=== PATIENT | female | born 1955 | race Caucasian/White ===

== ENCOUNTER 2022-08-31 08:00 | Inpatient (IN) ==
[2022-08-31] MEDS ORDERED: MoRPHine SULFATE 4 MG/ML 1 ML CARP\\VIAL IV STA ×2 (08:33→11:51)
[2022-08-31] MEDS ORDERED: LIDOCAINE 5% 1 PATCH TD STA (08:33)
[2022-08-31] MEDS ORDERED: KETOROLAC TROMETHAMINE 15 MG/ML VIAL IV STA (08:33)
[2022-08-31] MEDS ORDERED: ONDANSETRON 4 MG OD TAB PO STA (08:33)
--- NOTE | 2022-08-31 08:39 | Emergency Department Note ---
History of Present Illness General Chief complaint: Chest Pain Stated complaint: BACK PAIN, CHEST PAIN Time Seen by Provider: 08/31/22 08:09 History of Present Illness Maximum Pain Intensity: 9 Patient is a [id number] 67-year-old female with past medical history significant for hypertension, diabetes, dyslipidemia, depression, anxiety and urinary incontinence among other chronic medical problems who presents to the emergency department for evaluation of left scapular pain wrapping around into the left chest that started about 2 or 3 days ago. In the last year, the patient was diagnosed with a "pinched nerve" in her neck. She was having left scapular pain that radiated into the left arm. She reports no MRI was done, but she did physical therapy and got better. Patient reports a minor fall at home about a week ago. In the last 2 to 3 days, the pain in the left scapula has returned. She describes it as a sharp, hot lace inspector her left scapula that wraps around the axillary area into the left chest. Also radiates to the top of the shoulder and down the left arm into her left fourth and fifth fingers. The pain in her chest is a constant, aching pain, and she has some numbness and tingling into the left arm into her left fourth and fifth fingers. She has been trying to use [id number] medications including Tylenol, and had some baclofen that she tried that is not helping. She states at 0400 today the pain was quite intense, she was in tears. She currently rates her discomfort a 9/10. She denies any shortness of breath. She does report some increased discomfort with deep breathing however. No lightheadedness no dizziness, no nausea, no vomiti ng, no palpitations. She denies any abdominal pain or low back pain. She took her normal morning medications today. Home Medications Medication Instructions Recorded Confirmed Type aspirin 81 mg capsule 81 mg PO DAILY 08/31/22 08/31/22 History atorvastatin 40 mg tablet 40 mg PO DAILY 08/31/22 08/31/22 History duloxetine 60 mg capsule,delayed 60 mg PO DAILY 08/31/22 08/31/22 History release lisinopril 20 1 tab PO DAILY 08/31/22 08/31/22 History mg-hydrochlorothiazide 25 mg tablet meloxicam 15 mg tablet 15 mg PO DAILY 08/31/22 08/31/22 History metformin 1,000 mg tablet 1,000 mg PO DAILY 08/31/22 08/31/22 History oxybutynin chloride 15 mg 15 mg PO DAILY 08/31/22 08/31/22 History tablet,extended release 24 hr sertraline 100 mg tablet 200 mg PO DAILY 08/31/22 08/31/22 History trazodone 50 mg tablet 50 mg PO HS 08/31/22 08/31/22 History Allergies Allergy/AdvReac Type Severity Reaction Status Date / Time No Known Allergies Allergy Unverified 12/04/15 13:57 Past Med/Surg History Medical History Anxiety Depression Diabetes Dyslipidemia Hypertension Incontinence Surgical History History of left shoulder replacement History of total left knee replacement Social History Smoking Status: Former smoker Preferred Language: [place] Feels Safe at Home: Yes Review of Systems A total of 10 systems reviewed and were otherwise negative Physical Exam Vital Signs Vital Signs - 24 hr 08/31/22 08:01 08/31/22 09:11 08/31/22 09:40 Temperature 36.9 C Temperature Source Temporal Artery Scan Pulse Rate 77 70 Pulse Rate [Right Finger] 69 Pulse Rhythm [Right Finger] Respiratory Rate 14 20 Respiratory Effort / Characteristics Respiratory Depth Respiratory Pattern Blood Pressure 193/96 H Blood Pressure [Left Arm] 177/86 H Blood Pressure Mean 128 Blood Pressure Mean [Left Arm] 116 Blood Pressure Position [Left Arm] Pulse Oximetry 95 96 Oxygen Delivery Method Room Air Room Air Sepsis Recent Fever Within 48 Hours No Sepsis New/Unexplained Change in Mental Status No Sepsis Action Taken by Nursing No Action Required 08/31/22 12:41 08/31/22 13:23 08/31/22 13:58 Temperature Temperature Source Pulse Rate 60 Pulse Rate [Right Finger] 64 67 Pulse Rhythm [Right Finger] Regular Respiratory Rate 18 18 Respiratory Effort / Characteristics Non-Labored Spontaneous Non-Labored Spontaneous Respiratory Depth Normal Normal Respiratory Pattern Regular Regular Blood Pressure Blood Pressure [Left Arm] 159/85 H 199/98 H Blood Pressure Mean Blood Pressure Mean [Left Arm] 109 131 Blood Pressure Position [Left Arm] Lying Lying Pulse Oximetry 96 98 Oxygen Delivery Method Room Air Room Air Sepsis Recent Fever Within 48 Hours Sepsis New/Unexplained Change in Mental Status Sepsis Action Taken by Nursing CONSTITUTIONAL: Patient is a pleasant, overweight 67-year-old female who is awake and alert and sitting semiupright on the gurney in mild distress due to her stated discomfort. EYES: Pupils equal, round, reactive to light and accommodation. EOMs intact without nystagmus. Sclera are anicteric. ENT: Tympanic membranes intact, with normal landmarks. External canals are clear. Oral and nasopharynx are clear. Mucous membranes are moist, no lesions, tongue and gums appear normal. NECK: Supple without lymphadenopathy. No thyromegaly. No meningeal signs. No reproducible tenderness to palpation over the spinous processes of the cervical spine. Full active range of motion without discomfort. CARDIOVASCULAR: Regular rate and rhythm. Peripheral pulses easy to palpable. RESPIRATORY: Breath sounds equal and clear to auscultation without wheezes, rales, or rhonchi heard. Full and equal chest expansion without accessory muscle use or retractions. GI: Bowel sounds are present. Abdomen is soft, nontender, nondistended. No organomegaly. No pulsatile masses. No guarding or rebound. MUSCULOSKELETAL: Full range of motion of extremities x 4 with good strength. No cyanosis, edema, joint tenderness or swelling. No deformity. Upper extremity DTRs are equal and symmetrical bilaterally. She does have reproducible tenderness to palpation in the left mid back, between the thoracic spine and the scapula. INTEGUMENTARY: No lesions or rash, normal skin turgor. NEUROLOGICAL: Alert, oriented, and cooperative. Cranial nerves, sensation and strength grossly intact. Pupils round, equal, and react to light, EOMs are full. LYMPH: No lymphadenopathy. Course Course The patient was seen and assessed as above. External medical records are re viewed. She presents the emergency department for evaluation of left-sided mid back pain radiating into the left arm and the left chest. She had symptoms for a few days but they began to radiate into her chest since yesterday, and became more intense at 0400 this morning. Case reviewed with attending physician, Dr. Olivera. IV lock was initiated and laboratory studies were collected. She was medicated with Toradol 15 mg, morphine 4 mg IV with Zofran 4 mg ODT. A lidocaine patch was also applied to the left upper back. She was observed on the manager monitoring. Laboratory studies including CBC with differential, CMP, coags and troponin were collected. Chest x-ray, CT of the cervical spine and CTA of the chest were performed. Laboratory studies note a normal white count at 5900. No anemia. Coags are within normal limits. Electrolytes and renal functions are normal. A nonfasting glucose was mildly elevated at 171. Transaminases are not elevated. Initial troponin within normal limits at 12.2. EKG notes a normal sinus rhythm at 71 bpm. No acute ischemic changes. No interval prolongation. Chest x-ray is clear. Chest CT is unremarkable, no pulmonary emboli identified. There is mild ectasia of the extending thoracic aorta but no aneurysm or dissection. Benign left lower lobe nodule noted. Cervical spine CT notes multilevel degenerative changes with severe disc base n arrowing from C4-C7 with moderate to severe multilevel facet arthrosis. The patient was reassessed. All laboratory and diagnostic imaging studies were reviewed with her. She is feeling improved, rated her pain a 4/10 on reassessment. Discussed with her performing a second troponin, which is cu rrently pending. Repeat troponin elevated at 51. Given her symptoms and the elevated troponin, I did recommend admission/observation for further care and management in the hospital. Patient was in agreement. Case reviewed with ED family independence case manager, and [facility] and [facility]. Patient was reviewed with Xi Kennedy PA-C. She was admitted by the [facility] service. She remained stable in the emergency department pending th eir evaluation. Her primary nurse did come to me stating the patient was quite anxious regarding the diagnosis and was asking for something for anxiety. She was given Ativan 1 mg sublingually. Cardiac Monitoring: An order was placed for continuous cardiac monitoring. The monitor shows a NSR in the 60s per my interpretation. Administered Medications Discontinued Medications Ioversol (Optiray 320 500ml) 114 ml IV ONCE ONE Stop: 08/31/22 09:42 Last Admin: 08/31/22 09:43 Dose: 114 ml Documented By: JADA Ketorolac Tromethamine (Ketorolac Tromethamine 15 Mg/Ml Vial) 15 mg IV NOW STA Stop: 08/31/22 08:34 Last Admin: 08/31/22 08:49 Dose: 15 mg Documented By: JALEEL Lidocaine (Lidocaine 5% 1 Patch) 1 patch TD NOW STA Stop: 08/31/22 08:34 Last Admin: 08/31/22 08:49 Dose: 1 patch Documented By: JALEEL Lorazepam (Lorazepam 1 Mg Tab) 1 mg SL NOW STA Stop: 08/31/22 14:17 Last Admin: 08/31/22 14:19 Dose: 1 mg Documented By: LIZA Morphine Sulfate (Morphine Sulfate 4 Mg/Ml 1 Ml Carp\\Vial) 4 mg IV NOW STA Stop: 08/31/22 08:34 Last Admin: 08/31/22 08:49 Dose: 4 mg Documented By: JALEEL Morphine Sulfate (Morphine Sulfate 4 Mg/Ml 1 Ml Carp\\Vial) 4 mg IV NOW STA Stop: 08/31/22 11:52 Last Admin: 08/31/22 12:20 Dose: 4 mg Documented By: LIZA Ondansetron HCl (Ondansetron 4 Mg Od Tab) 4 mg PO NOW STA Stop: 08/31/22 08:34 Last Admin: 08/31/22 08:49 Dose: 4 mg Documented By: JALEEL Medical Decision Making Differential Diagnosis Differential diagnosis includes acute myocardial infarction, acute coronary syndrome, myocarditis, pericarditis, pulmonary embolism, pneumonia, pneumothorax, anemia, cervical radiculopathy, shoulder pathology, musculoskeletal, anxiety, costochondritis, among others.. Medical Records Attestation: I reviewed the patient's medical records. Home Medications Current Medication List: was personally reviewed by me Laboratory Data Attestation: I reviewed the patient's lab results. 08/31/22 08:45 08/31/22 08:45 Lab Results 08/31/22 08/31/22 08/31/22 Range/Units 08:45 08:45 08:45 WBC 5.93 (4.8-10.8) K/ul RBC 4.53 (4.20-5.40) M/uL Hgb 13.2 (12.0-16.0) g/dl Hct 40.0 (37.0-47.0) % MCV 88.3 (80.0-100.0) fL MCH 29.1 (25.0-34.0) pg MCHC 33.0 (32.0-36.0) g/dL RDW Std Deviation 41.1 (36.4-46.3) fL RDW Coeff of Neyda 12.7 (11.5-14.5) % Plt Count 203 (130-400) K/uL MPV 10.9 (9.4-12.4) fL Immature Gran % (Auto) 0.3 % Neut % (Auto) 78.1 % Lymph % (Auto) 13.5 % Cecil % (Auto) 5.4 % Eos % (Auto) 2.2 % Baso % (Auto) 0.5 % Neut # (Auto) 4.63 (1.40-6.50) K/uL Lymph # (Auto) 0.80 L (1.2-3.4) K/uL Cecil # (Auto) 0.32 (0.11-0.59) K/uL Eos # (Auto) 0.13 (0-0.50) K/uL Baso # (Auto) 0.03 (0-0.2) K/uL Immature Gran # (Auto) 0.02 (0.01-0.20) K/uL PT 10.5 (9.0-12.0) Seconds INR 1.0 (0.9-1.1) APTT 26.8 (21.0-31.0) Seconds PTT Ratio 1.0 Sodium 139 (136-145) mmol/L Potassium 4.0 (3.5-5.1) mmol/L Chloride 102 (98-107) mmol/L Carbon Dioxide 30 (21-32) mmol/L Anion Gap 7 (3-11) BUN 16 (6-23) mg/dl Creatinine 0.77 (0.6-1.2) mg/dl Est Cr Clr Drug Dosing 85.8 ml/min Est GFR ( Amer) 92.6 ml/min Est GFR (Non-Af Amer) 79.9 ml/min BUN/Creatinine Ratio 20.8 H (10-20) Glucose 171 H (70-99(Fasting)) mg/dl Calcium 9.9 (8.5-10.1) mg/dl Total Bilirubin 0.5 (0.2-1.0) mg/dl AST 19 (13-39) U/L ALT 15 (7-52) U/L Alkaline Phosphatase 49 (34-104) U/L Troponin I High Sens 12.2 (0-14) pg/ml Total Protein 7.0 (6.0-8.3) gm/dl Albumin 4.3 (3.4-5.0) gm/dl Globulin 2.7 (2.5-4.0) gm/dl Albumin/Globulin Ratio 1.6 (0.9-2) SARS-CoV-2, RNA, NAAT (NEGATIVE) 08/31/22 08/31/22 Range/Units 10:44 12:14 WBC (4.8-10.8) K/ul RBC (4.20-5.40) M/uL Hgb (12.0-16.0) g/dl Hct (37.0-47.0) % MCV (80.0-100.0) fL MCH (25.0-34.0) pg MCHC (32.0-36.0) g/dL RDW Std Deviation (36.4-46.3) fL RDW Coeff of Neyda (11.5-14.5) % Plt Count (130-400) K/uL MPV (9.4-12.4) fL Immature Gran % (Auto) % Neut % (Auto) % Lymph % (Auto) % Cecil % (Auto) % Eos % (Auto) % Baso % (Auto) % Neut # (Auto) (1.40-6.50) K/uL Lymph # (Auto) (1.2-3.4) K/uL Cecil # (Auto) (0.11-0.59) K/uL Eos # (Auto) (0-0.50) K/uL Baso # (Auto) (0-0.2) K/uL Immature Gran # (Auto) (0.01-0.20) K/uL PT (9.0-12.0) Seconds INR (0.9-1.1) APTT (21.0-31.0) Seconds PTT Ratio Sodium (136-145) mmol/L Potassium (3.5-5.1) mmol/L Chloride (98-107) mmol/L Carbon Dioxide (21-32) mmol/L Anion Gap (3-11) BUN (6-23) mg/dl Creatinine (0.6-1.2) mg/dl Est Cr Clr Drug Dosing ml/min Est GFR ( Amer) ml/min Est GFR (Non-Af Amer) ml/min BUN/Creatinine Ratio (10-20) Glucose (70-99(Fasting)) mg/dl Calcium (8.5-10.1) mg/dl Total Bilirubin (0.2-1.0) mg/dl AST (13-39) U/L ALT (7-52) U/L Alkaline Phosphatase (34-104) U/L Troponin I High Sens 51.5 H* D (0-14) pg/ml Total Protein (6.0-8.3) gm/dl Albumin (3.4-5.0) gm/dl Globulin (2.5-4.0) gm/dl Albumin/Globulin Ratio (0.9-2) SARS-CoV-2, RNA, NAAT NEGATIVE (NEGATIVE) Imaging Data Attestation: I personally reviewed and interpreted this imaging study as follows: Radiologist's Impression: Chest X-Ray 08/31/22 08:30 XR chest 1V portable HISTORY: 67 years-old Female LEFT CHEST PAIN left-sided chest pain COMPARISON: 09/06/2015 TECHNIQUE: AP view of the chest FINDINGS: Cardiomediastinal and hilar silhouettes are within normal limits. Atherosclerosis of the aorta. No pneumothorax, large pleural effusion, airspace consolidation or overt pulmonary edema. Degenerative changes of the right shoulder and spine. Left shoulder arthroplasty. IMPRESSION: No acute process. ACT 112: Negative or not required by law. The above report was generated using voice recognition software. It may contain grammatical, syntax or spelling errors. Electronically signed by: En Joya M.D. 08/31/2022 9:[address] 08/31/22 08:31 CT cervical spine wo con CT DOSE: 1411.58 mGy.cm CLINICAL HISTORY: 67 years-old Female with LEFT CERVICAL RADICULOPATHY. Acute neck pain COMPARISON: CTA chest of same day TECHNIQUE: Multiple axial CT images of the cervical spine were obtained without contrast. A dose lowering technique was utilized adhering to the principles of ALARA. FINDINGS: Demineralized appearance of the bones. Multilevel degenerative changes include severe disc space narrowing at C4-C5, C5-C6 and C6-C7 with moderate to severe multilevel facet arthrosis. Multilevel central canal or neural foraminal narrowing, suboptimally evaluated by CT technique. Study is mildly motion degrad ed. The cervical soft tissues appear unremarkable. The visualized lung apices appear clear. IMPRESSION: No acute cervical spine fracture or subluxation. ACT 112: Negative or not required by law. The above report was generated using voice recognition software. It may contain grammatical, syntax or spelling errors. Electronically signed by: En Joya M.D. 08/31/2022 10:26 AM Chest CTA 08/31/22 08:31 CT angio chest PE protocol HISTORY: 67 years-old Female with L THORACIC BACK PAIN RADIATING INTO LEFT CHEST. Acute left-sided chest pain with shortness of breath TECHNIQUE: Multiple CTA images of the chest were obtained after the intravenous administration of 114 ml Optiray. Coronal and sagittal MIPS were obtained from the axial data set and were submitted for review. All measurements were obtained according to NASCET criteria. A dose lowering technique was utilized adhering to the principles of ALARA. COMPARISON: CT cervical spine of same day, chest CT 04/14/2006 FINDINGS: CTA: Mild cardiomegaly. No pericardial effusion. Mild coronary artery calcifications. Mild ectasia of the ascending thoracic aorta, 3.9 cm. No aneurysm or dissection. Unremarkable pulmonary artery. Suboptimal evaluation of the segmental and subsegmental branches secondary to contrast bolus timing. CT CHEST: No thyroid nodule or lymphadenopathy. There is no pneumothorax, pleural effusion, airspace consolidation or overt pulmonary edema. Mild bronchial wall thickening. No suspicious pulmonary nodules or masses identified. 4 mm solid nodule the basal left lower lobe, image 119 previously measured 2 mm. 3 mm nodule within the left lower lobe on image 85 likely focal mucous plugging. Central airways are patent. Tiny hiatal hernia. 2.7 cm right adrenal gland adenoma. Hepatic steatosis. Left hepatic lobe hemangioma redemonstrated. Mild distention of the gallbladder. 3 mm nonobstructing calculus of the superior pole left kidney. Unremarkable soft tissues. Left shoulder arthroplasty. Degenerative changes of the right shoulder and spine. IMPRESSION: 1. Unremarkable CTA of the chest. No pulmonary emboli identified. 2. Likely benign 4 mm solid nodule within the left lower lobe. 3. Left nephrolithiasis. 4. Hepatic steatosis. Please refer to below summary of Fleischner criteria recommendations for follow- up of incidental CT nodules (Latanya Samson, Guidelines for management of small pulmonary nodules detected on CT scans: A statement from the Fleischner Society, Radiology 237: [phone].) SOLID NODULES Solitary nodule size: <6 mm * Low risk patients: no follow-up needed * high risk patients: optional CT at 12 months Multiple nodules size: <6 mm * Low risk patients: no routine follow-up * high risk patients: optional CT at 12 months Note: newly detected indeterminate nodule in persons 35 years of age or older. * Low risk patients: minimal or absent history of smoking and/or other known risk factors * high risk patients: history of smoking or of other known risk factors (e.g. first degree relative with lung cancer, or exposure to asbestos, radon, uranium) * if a nodule up to 8 mm is partly solid or is ground glass further follow-up is required after 24 months to exclude possible slow growing adenocarcinoma ([place]) ACT 112: Negative or not required by law. The above report was generated using voice recognition software. It may contain grammatical, syntax or spelling errors. Electronically signed by: En Joya M.D. 08/31/2022 10:34 AM ECG Data Attestation: I personally reviewed and interpreted this ECG as follows: Indication: + back/shoulder pain and + chest pain Rate (beats per minute): 71 Rhythm: + normal sinus ECG Intervals/blocks: + Right Bundle branch block (incomplete) ECG [place]: + Normal ECG ST segments: no ST depression, no ST elevation or no T-wave inversions Comparison ECG Date: from (08/2015) Change: no significant change MDM Narrative See ED Course. Impression & Plan Left-sided thoracic back pain, Left-sided chest pain, Elevated troponin, Degenerative disc disease, cervical Discharge Plan Visit Data Chief Complaint: Chest Pain Stated Complaint: BACK PAIN, CHEST PAIN ED Provider: Sabas Olivera ED Midlevel Provider: Delonte Ruiz Discharge Problem: Left-sided thoracic back pain, Left-sided chest pain, Elevated troponin, Degenerative disc disease, cervical Patient Disposition: Being Evaluated by Hospitalist Forms Stand Alone Forms: My [employer] Prescriptions Prescriptions: No Action atorvastatin 40 mg tablet 40 mg PO DAILY trazodone 50 mg tablet 50 mg PO HS meloxicam 15 mg tablet 15 mg PO DAILY sertraline 100 mg tablet 200 mg PO DAILY metformin 1,000 mg tablet 1,000 mg PO DAILY lisinopril-hydrochlorothiazide 20-25 mg tablet 1 tab PO DAILY duloxetine 60 mg capsule,delayed release(DR/EC) 60 mg PO DAILY aspirin 81 mg Capsule 81 mg PO DAILY oxybutynin chloride 15 mg Tablet Extended Release 24hr 15 mg PO DAILY Referrals Referrals: Brandt Jackson MD [Outside Practitioners] -
--- NOTE | 2022-08-31 09:14 | XRay Report ---
XR chest 1V portable HISTORY: 67 years-old Female LEFT CHEST PAIN left-sided chest pain COMPARISON: 09/06/2015 TECHNIQUE: AP view of the chest FINDINGS: Cardiomediastinal and hilar silhouettes are within normal limits. Atherosclerosis of the aorta. No pn eumothorax, large pleural effusion, airspace consolidation or overt pulmonary edema. Degenerative chavez nges of the right shoulder and spine. Left shoulder arthroplasty. IMPRESSION: No acute process. ACT 112: Negative or not required by law. The above report was generated using voice recognition software. It may contain grammatical, syntax o r spelling errors. Electronically signed by: En Joya M.D. 08/31/2022 9:12 AM
[2022-08-31 09:21] LABS: Partial Thromboplastin Time 26.8 Seconds (21.0-31.0); Prothrombin Time 10.5 Seconds (9.0-12.0)
[2022-08-31 09:23] LABS: Albumin Globulin Ratio 1.6 (0.9-2); Albumin Level 4.3 gm/dl (3.4-5.0); BUN Creatinine Ratio 20.8 (10-20); Bilirubin,Total 0.5 mg/dl (0.2-1.0); Calcium 9.9 mg/dl (8.5-10.1); Creatinine Clr Calc Pharmacy 85.8 ml/min; Est GFR (African American) 92.6 ml/min; Est GFR (Non-African American) 79.9 ml/min; Globulin 2.7 gm/dl (2.5-4.0)
[2022-08-31 09:27] LABS: Basophils # (auto) 0.03 K/uL (0-0.2); Basophils % (auto) 0.5 %; Eosinophils # (auto) 0.13 K/uL (0-0.50); Eosinophils % (auto) 2.2 %; Hemoglobin 13.2 g/dl (12.0-16.0); Immature Granulocytes # (auto) 0.02 K/uL (0.01-0.20); Immature Granulocytes % (auto) 0.3 %; Lymphocytes % (auto) 13.5 %; Mean Corpuscular Hemoglobin 29.1 pg (25.0-34.0); Mean Corpuscular Volume 88.3 fL (80.0-100.0); Mean Platelet Volume 10.9 fL (9.4-12.4); Monocytes # (auto) 0.32 K/uL (0.11-0.59); Monocytes % (auto) 5.4 %; Neutrophils # (auto) 4.63 K/uL (1.40-6.50); Neutrophils % (auto) 78.1 %; Platelet Count 203 K/uL (130-400); RDW Coefficient of Variation 12.7 % (11.5-14.5); RDW Standard Deviation 41.1 fL (36.4-46.3); Red Blood Count 4.53 M/uL (4.20-5.40); White Blood Count 5.93 K/ul (4.8-10.8)
[2022-08-31 09:29] LABS: Troponin I High Sensitivity 12.2 pg/ml (0-14)
[2022-08-31] MEDS ORDERED: OPTIRAY 320 500ml IV ONE (09:41)
--- NOTE | 2022-08-31 10:28 | CT Scan Report ---
CT cervical spine wo con CT DOSE: 1411.58 mGy.cm CLINICAL HISTORY: 67 years-old Female with LEFT CERVICAL RADICULOPATHY. Acute neck pain COMPARISON: CTA chest of same day TECHNIQUE: Multiple axial CT images of the cervical spine were obtained without contrast. A dose low ering technique was utilized adhering to the principles of ALARA. FINDINGS: Demineralized appearance of the bones. Multilevel degenerative changes include severe disc space narrowing at C4-C5, C5-C6 and C6-C7 with moderate to severe multilevel facet arthrosis. Multile dick central canal or neural foraminal narrowing, suboptimally evaluated by CT technique. Study is mil dly motion degraded. The cervical soft tissues appear unremarkable. The visualized lung apices appear clear. IMPRESSION: No acute cervical spine fracture or subluxation. ACT 112: Negative or not required by law. The above report was generated using voice recognition software. It may contain grammatical, syntax o r spelling errors. Electronically signed by: En Joya M.D. 08/31/2022 10:26 AM
--- NOTE | 2022-08-31 10:36 | CT Scan Report ---
CT angio chest PE protocol HISTORY: 67 years-old Female with L THORACIC BACK PAIN RADIATING INTO LEFT CHEST. Acute left-sided chest pain with shortness of breath TECHNIQUE: Multiple CTA images of the chest were obtained after the intravenous administration of 114 ml Optiray. Coronal and sagittal MIPS were obtained from the axial data set and were submitted for review. All measurements were obtained according to NASCET criteria. A dose lowering technique was u tilized adhering to the principles of ALARA. COMPARISON: CT cervical spine of same day, chest CT 04/14/2006 FINDINGS: CTA: Mild cardiomegaly. No pericardial effusion. Mild coronary artery calcifications. Mild ectasia of the ascending thoracic aorta, 3.9 cm. No aneurysm or dissection. Unremarkable pulmonary artery. Suboptima l evaluation of the segmental and subsegmental branches secondary to contrast bolus timing. CT CHEST: No thyroid nodule or lymphadenopathy. There is no pneumothorax, pleural effusion, airspace consolidat ion or overt pulmonary edema. Mild bronchial wall thickening. No suspicious pulmonary nodules or mass es identified. 4 mm solid nodule the basal left lower lobe, image 119 previously measured 2 mm. 3 mm nodule within the left lower lobe on image 85 likely focal mucous plugging. Central airways are paten t. Tiny hiatal hernia. 2.7 cm right adrenal gland adenoma. Hepatic steatosis. Left hepatic lobe hemangio ma redemonstrated. Mild distention of the gallbladder. 3 mm nonobstructing calculus of the superior p ole left kidney. Unremarkable soft tissues. Left shoulder arthroplasty. Degenerative changes of the r ight shoulder and spine. IMPRESSION: 1. Unremarkable CTA of the chest. No pulmonary emboli identified. 2. Likely benign 4 mm solid nodule within the left lower lobe. 3. Left nephrolithiasis. 4. Hepatic steatosis. Please refer to below summary of Fleischner criteria recommendations for follow-up of incidental CT n odules (Latanya Samson, Guidelines for management of small pulmonary nodules detected on CT scans: A sta tement from the Fleischner Society, Radiology 237: [id number].) SOLID NODULES Solitary nodule size: <6 mm * Low risk patients: no follow-up needed * high risk patients: optional CT at 12 months Multiple nodules size: <6 mm * Low risk patients: no routine follow-up * high risk patients: optional CT at 12 months Note: newly detected indeterminate nodule in persons 35 years of age or older. * Low risk patients: minimal or absent history of smoking and/or other known risk factors * high risk patients: history of smoking or of other known risk factors (e.g. first degree relative with lung cancer, or exposure to asbestos, radon, uranium) * if a nodule up to 8 mm is partly solid or is ground glass further follow-up is required after 24 m onths to exclude possible slow growing adenocarcinoma (TEAGAN) ACT 112: Negative or not required by law. The above report was generated using voice recognition software. It may contain grammatical, syntax o r spelling errors. Electronically signed by: En Joya M.D. 08/31/2022 10:34 AM
[2022-08-31] MEDS ORDERED: LORazepam 1 MG TAB SL STA (14:16)
[2022-08-31] MEDS ORDERED: GLUCOSE 10 TAB/TUBE PO PRN (15:15)
[2022-08-31] MEDS ORDERED: GLUCOSE 40% GEL 15 GM TUBE PO PRN (15:15)
[2022-08-31] MEDS ORDERED: DEXTROSE 50% 50 ML SYRINGE IV PRN (15:15)
[2022-08-31] MEDS ORDERED: CARBOHYDRATES FOR HYPOGLYCEMIA PO PRN (15:15)
[2022-08-31] MEDS ORDERED: GLUCAGON FOR INJ 1 MG VIAL SQ PRN (15:15)
--- NOTE | 2022-08-31 15:33 | History & Physical Report ---
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 -due to age, and chronic medical conditions will trend trop --admit to tele, get echo and cardiology consult -will continue pts home aspirin and Statin -will obtain AM EKG -CTA chest: No PE L neck pain and Shoulder blade pain: -likely 2/2 DDD and MSK - will get PT/OT - Lidoderm daily -will do prn pain meds - CT C spine: no acute findings but presence of DDD with moderate to severe multilevel facet arthrosis ----- might consider Gabapentin on discharge if there is lack of improvement -will hold pts home meloxicam for now Incidental Pulm nodule on CTA chest: -4mm -pt is a non smoker and no prior hx of chest radiation thus low risk and no need for follow up DMII: -will hold metformin -ISS HTn: -continue Lisinopril-HCTZ PENELOPE/Insomnia/Overactive bladder: -Continue home meds Diet: Heart healty and DMII DVT PPx:Lovenox Code Status:FULL CODE Emergency Contact: - Robert Hernandez [phone] Admission and Anticipated Discharge Date Admission Date: August 31, 2022 History of Present Illness Chief Complaint: chest pain Primary Care Provider: Armida Fernandes DO Pt is a 67 y/o F with hx of DMII, HTN, HLD, Insomnia, anxiety, Depression, overactive bladder, DDD and DJD came into the ER with 1 week hx of L neck and shoulder blade pain which progressed into L axillary and L anterior chest pain today morning. Per pt and pt was sewing 1 week ago and the pain started after that. Does have hx of L shoulder replacement and DDD. Denied any hx of MS or CVA. At bedside: continued to complain of L neck, shoulder blade, and L anterior chest pain. Denied any SOB, palpitation, leg swelling or orthopnea. Allergies Allergy/AdvReac Type Severity Reaction Status Date / Time No Known Allergies Allergy Unverified 12/04/15 13:57 Home Medications Medication Instructions Recorded Confirmed Type aspirin 81 mg capsule 81 mg PO DAILY 08/31/22 08/31/22 History atorvastatin 40 mg tablet 40 mg PO DAILY 08/31/22 08/31/22 History duloxetine 60 mg capsule,delayed 60 mg PO DAILY 08/31/22 08/31/22 History release lisinopril 20 1 tab PO DAILY 08/31/22 08/31/22 History mg-hydrochlorothiazide 25 mg tablet meloxicam 15 mg tablet 15 mg PO DAILY 08/31/22 08/31/22 History metformin 1,000 mg tablet 1,000 mg PO BID 08/31/22 08/31/22 History oxybutynin chloride 15 mg 15 mg PO DAILY 08/31/22 08/31/22 History tablet,extended release 24 hr sertraline 100 mg tablet 200 mg PO DAILY 08/31/22 08/31/22 History trazodone 50 mg tablet 50 mg PO HS 08/31/22 08/31/22 History Past Med/Surg History Medical History Anxiety Depression Diabetes Dyslipidemia Hypertension Incontinence Surgical History History of left shoulder replacement History of total left knee replacement Family History Other Diabetes Heart disease Social History Smoking Status: Former smoker Preferred Language: Chinese Feels Safe at Home: Yes Review of Systems Review of Systems: At least 10 Review of systems were reviewed and all negative except as indicated in HPI Physical Exam Physical Exam: General:. NAD, well developed, well nourished, average body habitus HEENT:. Normocephalic and atraumatic, Normal Conjunctiva, EOMI, Sclera is non- icteric Lungs:. No signs of respiratory distress, CTA, no wheezing or crackles Heart:. Normal S1, S2, no murmur Abdominal:. ND, Soft, NT MSK:.TTP of the cervical paravertebral muscle and scapula area, normal ROM of the neck and shoulders with intact strength of the UE, trace b/l LE pitting edema Psych:. AAOx3, normal affect Results & Data Results & Data ([facility]) Vital Signs (Past 12 Hours) Vital Signs Temp Pulse Pulse Resp BP BP Pulse Ox 08/31/22 14:45 65 18 175/101 H 96 08/31/22 13:58 67 18 199/98 H 98 08/31/22 13:23 60 08/31/22 12:41 64 18 159/85 H 96 08/31/22 09:40 69 20 177/86 H 96 08/31/22 09:11 70 08/31/22 08:01 36.9 C 77 14 193/96 H 95 O2 Del Method 08/31/22 14:45 Room Air 08/31/22 13:58 Room Air 08/31/22 13:23 08/31/22 12:41 Room Air 08/31/22 09:40 Room Air 08/31/22 09:11 08/31/22 08:01 Room Air Laboratory Results Short CBC 08/31/22 Range/Units 08:45 WBC 5.93 (4.8-10.8) K/ul Hgb 13.2 (12.0-16.0) g/dl Hct 40.0 (37.0-47.0) % Plt Count 203 (130-400) K/uL BMP 08/31/22 08:45 Sodium 139 Potassium 4.0 Chloride 102 Carbon Dioxide 30 BUN 16 Creatinine 0.77 Glucose 171 H Calcium 9.9 Liver Function 08/31/22 Range/Units 08:45 Total Bilirubin 0.5 (0.2-1.0) mg/dl AST 19 (13-39) U/L ALT 15 (7-52) U/L Alkaline Phosphatase 49 (34-104) U/L Albumin 4.3 (3.4-5.0) gm/dl Diagnostic Findings Chest X-Ray 08/31/22 08:30 XR chest 1V portable HISTORY: 67 years-old Female LEFT CHEST PAIN left-sided chest pain COMPARISON: 09/06/2015 TECHNIQUE: AP view of the chest FINDINGS: Cardiomediastinal and hilar silhouettes are within normal limits. Atherosclerosis of the aorta. No pneumothorax, large pleural effusion, airspace consolidation or overt pulmonary edema. Degenerative changes of the right shoulder and spine. Left shoulder arthroplasty. IMPRESSION: No acute process. ACT 112: Negative or not required by law. The above report was generated using voice recognition software. It may contain grammatical, syntax or spelling errors. Electronically signed by: En Joya M.D. 08/31/2022 9:[address] 08/31/22 08:31 CT cervical spine wo con CT DOSE: 1411.58 mGy.cm CLINICAL HISTORY: 67 years-old Female with LEFT CERVICAL RADICULOPATHY. Acute neck pain COMPARISON: CTA chest of same day TECHNIQUE: Multiple axial CT images of the cervical spine were obtained without contrast. A dose lowering technique was utilized adhering to the principles of ALARA. FINDINGS: Demineralized appearance of the bones. Multilevel degenerative changes include severe disc space narrowing at C4-C5, C5-C6 and C6-C7 with moderate to severe multilevel facet arthrosis. Multilevel central canal or neural foraminal narrowing, suboptimally evaluated by CT technique. Study is mildly motion degraded. The cervical soft tissues appear unremarkable. The visualized lung apices appear clear. IMPRESSION: No acute cervical spine fracture or subluxation. ACT 112: Negative or not required by law. The above report was generated using voice recognition software. It may contain grammatical, syntax or spelling errors. Electronically signed by: En Joya M.D. 08/31/2022 10:26 AM Chest CTA 08/31/22 08:31 CT angio chest PE protocol HISTORY: 67 years-old Female with L THORACIC BACK PAIN RADIATING INTO LEFT CHEST. Acute left-sided chest pain with shortness of breath TECHNIQUE: Multiple CTA images of the chest were obtained after the intravenous administration of 114 ml Optiray. Coronal and sagittal MIPS were obtained from the axial data set and were submitted for review. All measurements were obtained according to NASCET criteria. A dose lowering technique was utilized adhering to the principles of ALARA. COMPARISON: CT cervical spine of same day, chest CT 04/14/2006 FINDINGS: CTA: Mild cardiomegaly. No pericardial effusion. Mild coronary artery calcifications. Mild ectasia of the ascending thoracic aorta, 3.9 cm. No aneurysm or dissection. Unremarkable pulmonary artery. Suboptimal evaluation of the segmental and subsegmental branches secondary to contrast bolus timing. CT CHEST: No thyroid nodule or lymphadenopathy. There is no pneumothorax, pleural effusion, airspace consolidation or overt pulmonary edema. Mild bronchial wall thickening. No suspicious pulmonary nodules or masses identified. 4 mm solid nodule the basal left lower lobe, image 119 previously measured 2 mm. 3 mm nodule within the left lower lobe on image 85 likely focal mucous plugging. Central airways are patent. Tiny hiatal hernia. 2.7 cm right adrenal gland adenoma. Hepatic steatosis. Left hepatic lobe hemangioma redemonstrated. Mild distention of the gallbladder. 3 mm nonobstructing calculus of the superior pole left kidney. Unremarkable soft tissues. Left shoulder arthroplasty. Degenerative changes of the right shoulder and spine. IMPRESSION: 1. Unremarkable CTA of the chest. No pulmonary emboli identified. 2. Likely benign 4 mm solid nodule within the left lower lobe. 3. Left nephrolithiasis. 4. Hepatic steatosis. Please refer to below summary of Fleischner criteria recommendations for follow- up of incidental CT nodules (Latanya Samson, Guidelines for management of small pulmonary nodules detected on CT scans: A statement from the Fleischner Society, Radiology 237: [phone].) SOLID NODULES Solitary nodule size: <6 mm * Low risk patients: no follow-up needed * high risk patients: optional CT at 12 months Multiple nodules size: <6 mm * Low risk patients: no routine follow-up * high risk patients: optional CT at 12 months Note: newly detected indeterminate nodule in persons 35 years of age or older. * Low risk patients: minimal or absent history of smoking and/or other known risk factors * high risk patients: history of smoking or of other known risk factors (e.g. first degree relative with lung cancer, or exposure to asbestos, radon, uranium) * if a nodule up to 8 mm is partly solid or is ground glass further follow-up is required after 24 months to exclude possible slow growing adenocarcinoma (TEAGAN) ACT 112: Negative or not required by law. The above report was generated using voice recognition software. It may contain grammatical, syntax or spelling errors. Electronically signed by: En Joya M.D. 08/31/2022 10:34 AM Code Status & VTE Plan VTE Prophylaxis Plan VTE Prophylaxis will be ordered: Yes
[2022-08-31] MEDS: oxyCODONE HCL IR 5 MG TAB (IMMEDIATE RELEASE) PO PRN ×2 (16:54→23:08)
[2022-08-31] MEDS: INSULIN ASPART PER UNIT SC SCH ×2 (16:55→20:44)
[2022-08-31] MEDS: ENOXAPARIN INJ 40 MG/0.4 ML SYR SQ SCH (18:08)
[2022-08-31] MEDS: ACETAMINOPHEN 325 MG TAB PO PRN (20:40)
[2022-08-31] MEDS: traZODone HCL 50 MG TAB PO SCH (20:40)
[2022-09-01] MEDS: ACETAMINOPHEN 325 MG TAB PO PRN ×4 (02:23→23:29)
[2022-09-01] MEDS: ENOXAPARIN INJ 40 MG/0.4 ML SYR SQ SCH ×2 (05:13→15:42)
[2022-09-01] MEDS: oxyCODONE HCL IR 5 MG TAB (IMMEDIATE RELEASE) PO PRN ×4 (05:17→20:13)
[2022-09-01] MEDS: INSULIN ASPART PER UNIT SC SCH ×4 (08:09→21:12)
[2022-09-01 08:16] LABS: Basophils # (auto) 0.03 K/uL (0-0.2); Basophils % (auto) 0.7 %; Eosinophils # (auto) 0.12 K/uL (0-0.50); Eosinophils % (auto) 2.8 %; Hematocrit (blood only) 39.5 % (37.0-47.0); Hemoglobin 13.2 g/dl (12.0-16.0); Immature Granulocytes # (auto) 0.01 K/uL (0.01-0.20); Immature Granulocytes % (auto) 0.2 %; Lymphocytes # (auto) 0.76 K/uL (1.2-3.4); Lymphocytes % (auto) 17.8 %; Mean Corpuscular Hgb Conc 33.4 g/dL (32.0-36.0); Mean Corpuscular Volume 86.8 fL (80.0-100.0); Mean Platelet Volume 10.5 fL (9.4-12.4); Monocytes # (auto) 0.31 K/uL (0.11-0.59); Monocytes % (auto) 7.2 %; Neutrophils # (auto) 3.05 K/uL (1.40-6.50); Neutrophils % (auto) 71.3 %; Platelet Count 188 K/uL (130-400); RDW Coefficient of Variation 12.8 % (11.5-14.5); RDW Standard Deviation 40.3 fL (36.4-46.3); Red Blood Count 4.55 M/uL (4.20-5.40); White Blood Count 4.28 K/ul (4.8-10.8)
[2022-09-01 08:23] LABS: Albumin Globulin Ratio 1.5 (0.9-2); Albumin Level 4.1 gm/dl (3.4-5.0); BUN Creatinine Ratio 22.4 (10-20); Bilirubin,Total 0.4 mg/dl (0.2-1.0); Calcium 9.5 mg/dl (8.5-10.1); Chol HDL Ratio 3.8 (0-5); Creatinine Clr Calc Pharmacy 107.2 ml/min; Est GFR (African American) 105.4 ml/min; Globulin 2.7 gm/dl (2.5-4.0); Potassium 4.1 mmol/L (3.5-5.1); Total Protein 6.8 gm/dl (6.0-8.3)
[2022-09-01] MEDS: LIDOCAINE 5% 1 PATCH TD SCH (08:34)
[2022-09-01] MEDS: ATORVASTATIN 40 MG TAB PO SCH (08:39)
[2022-09-01] MEDS: ASPIRIN 81 MG ECTAB PO SCH (08:39)
[2022-09-01] MEDS: SERTRALINE HCL 100 MG TABLET PO SCH (08:39)
[2022-09-01] MEDS: DULoxetine HCL 60 MG CAP PO SCH (08:39)
[2022-09-01] MEDS: LISINOPRIL/HCTZ 20/25MG 1 TAB PO SCH (08:39)
[2022-09-01] MEDS: OXYBUTYNIN CHLORIDE XL 5 MG TABCR PO SCH (08:40)
[2022-09-01] MEDS ORDERED: MELOXICAM 7.5 MG TAB PO SCH (09:00)
--- NOTE | 2022-09-01 11:03 | Electrocardiogram Report ---
Test Reason : Blood Pressure : / mmHG Vent. Rate : 071 BPM Atrial Rate : 071 BPM P-R Int : 162 ms QRS Dur : 094 ms QT Int : 410 ms P-R-T Axes : 037 -47 051 degrees QTc Int : 445 ms Poor data quality, interpretation may be adversely affected Normal sinus rhythm RSR' or QR pattern in V1 suggests right ventricular conduction delay Left anterior fascicular block Abnormal ECG When compared with ECG of 06-SEP-2015 11:29, RSR' or QR pattern in V1 suggests right ventricular conduction delay is now Present Confirmed by Gino Morales ([id number]) on 09/01/2022 11:03:22 AM Referred By: REFERRED SELF Confirmed By:Gino Morales
--- NOTE | 2022-09-01 12:50 | Hospitalist Progress Note ---
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 Normal LV systolic function, EF 60 to 65%. No segmental LV wall motion abnormalities are noted. Grade 1 diastolic dysfunction. Poorly visualized valvular structures without significant stenosis or regurg by Doppler. Cardiology consult pending L neck pain and Shoulder blade pain: - CT C spine: no acute findings but presence of DDD with moderate to severe multilevel facet arthrosis -likely 2/2 DDD and MSK - PT/OT - Lidoderm daily , oxycodone prn, hold pts home meloxicam for now - will add Gabapentin as pt still complaing of pain and also radiation to fingers Incidental Pulm nodule on CTA chest: -4mm -pt is a non smoker and no prior hx of chest radiation thus low risk and no need for follow up -will make pcp aware DMII: -will hold metformin -ISS HTN: -continue Lisinopril-HCTZ PENELOPE/Insomnia/Overactive bladder: -Continue home meds DVT PPx:Lovenox Code Status:FULL CODE Emergency Contact: - Robert [phone] Admission and Anticipated Discharge Date Admission Date: August 31, 2022 Subjective Pt seen in follow up of chest pain, elev. trop Currently laying in bed, in no acute distress However reports continuous subscapular pain that radiates to left chest anteriorly She has bruise at the sternum, from her fall Reports " pinched nerve" at left neck Denies any diaphoresis, shortness of breath nausea or vomiting, reports some tingling going down to her fingers Troponin increased since admission EKG in the morning ordered Echo obtained, however not available yet Patient otherwise denies any fevers chills abdominal pain Review of Systems Review of Systems: All systems reviewed & are unremarkable except as noted in Subjective Physical Exam Physical Exam: General: Obese F laying in bed in NAD HEENT: NC/AT, Normal Conjunctiva, EOMI, Sclera is non-icteric Lungs:No signs of respiratory distress, CTA, no wheezing or crackles Heart: Normal S1, S2, no murmur Chest: bruise at the left side of sternum (from fall) Abdominal: Soft, NT, ND, obese MSK: TTP of the cervical paravertebral muscle and scapula area, normal ROM of the neck and shoulders with intact strength of the UE, trace b/l LE pitting edema Psych:.AAOx3, normal affect Results & Data Results & Data ([facility]) Vital Signs (Past 12 Hours) Vital Signs Temp Pulse Pulse Resp BP Pulse Ox O2 Del Method 09/01/22 11:39 37 C 67 20 143/72 H 98 Room Air 09/01/22 07:00 Room Air 09/01/22 07:42 36.8 C 66 20 179/82 H 98 Room Air 09/01/22 06:00 66 09/01/22 04:00 37.0 C 70 18 168/93 H 94 Room Air 09/01/22 01:37 70 Laboratory Results 09/01/22 09/01/22 09/01/22 Range/Units 11:33 09:44 07:52 WBC (4.8-10.8) K/ul RBC (4.20-5.40) M/uL Hgb (12.0-16.0) g/dl Hct (37.0-47.0) % MCV (80.0-100.0) fL MCH (25.0-34.0) pg MCHC (32.0-36.0) g/dL RDW Std Deviation (36.4-46.3) fL RDW Coeff of Neyda (11.5-14.5) % Plt Count (130-400) K/uL MPV (9.4-12.4) fL Immature Gran % (Auto) % Neut % (Auto) % Lymph % (Auto) % Parmer % (Auto) % Eos % (Auto) % Baso % (Auto) % Neut # (Auto) (1.40-6.50) K/uL Lymph # (Auto) (1.2-3.4) K/uL Parmer # (Auto) (0.11-0.59) K/uL Eos # (Auto) (0-0.50) K/uL Baso # (Auto) (0-0.2) K/uL Immature Gran # (Auto) (0.01-0.20) K/uL Sodium (136-145) mmol/L Potassium (3.5-5.1) mmol/L Chloride (98-107) mmol/L Carbon Dioxide (21-32) mmol/L Anion Gap (3-11) BUN (6-23) mg/dl Creatinine (0.6-1.2) mg/dl Est Cr Clr Drug Dosing ml/min Est GFR ( Amer) ml/min Est GFR (Non-Af Amer) ml/min BUN/Creatinine Ratio (10-20) Glucose (70-99(Fasting)) mg/dl POC Glucose 128 H 156 H (70-99) mg/dl Estimat Average Glucose Hemoglobin A1c Calcium (8.5-10.1) mg/dl Total Bilirubin (0.2-1.0) mg/dl AST (13-39) U/L ALT (7-52) U/L Alkaline Phosphatase (34-104) U/L Troponin I High Sens 195.4 H* D (0-14) pg/ml Total Protein (6.0-8.3) gm/dl Albumin (3.4-5.0) gm/dl Globulin (2.5-4.0) gm/dl Albumin/Globulin Ratio (0.9-2) Triglycerides (0-150) mg/dl Cholesterol (0-200) mg/dl LDL Cholesterol, Calc mg/dl VLDL Cholesterol, Calc (0-30) mg/dl HDL Cholesterol mg/dl Cholesterol/HDL Ratio (0-5) SARS-CoV-2, RNA, NAAT (NEGATIVE) 09/01/22 09/01/22 09/01/22 Range/Units 07:43 07:43 07:43 WBC 4.28 L (4.8-10.8) K/ul RBC 4.55 (4.20-5.40) M/uL Hgb 13.2 (12.0-16.0) g/dl Hct 39.5 (37.0-47.0) % MCV 86.8 (80.0-100.0) fL MCH 29.0 (25.0-34.0) pg MCHC 33.4 (32.0-36.0) g/dL RDW Std Deviation 40.3 (36.4-46.3) fL RDW Coeff of Neyda 12.8 (11.5-14.5) % Plt Count 188 (130-400) K/uL MPV 10.5 (9.4-12.4) fL Immature Gran % (Auto) 0.2 % Neut % (Auto) 71.3 % Lymph % (Auto) 17.8 % Parmer % (Auto) 7.2 % Eos % (Auto) 2.8 % Baso % (Auto) 0.7 % Neut # (Auto) 3.05 (1.40-6.50) K/uL Lymph # (Auto) 0.76 L (1.2-3.4) K/uL Parmer # (Auto) 0.31 (0.11-0.59) K/uL Eos # (Auto) 0.12 (0-0.50) K/uL Baso # (Auto) 0.03 (0-0.2) K/uL Immature Gran # (Auto) 0.01 (0.01-0.20) K/uL Sodium 139 (136-145) mmol/L Potassium 4.1 (3.5-5.1) mmol/L Chloride 100 (98-107) mmol/L Carbon Dioxide 32 (21-32) mmol/L Anion Gap 7 (3-11) BUN 15 (6-23) mg/dl Creatinine 0.67 (0.6-1.2) mg/dl Est Cr Clr Drug Dosing 107.2 ml/min Est GFR ( Amer) 105.4 ml/min Est GFR (Non-Af Amer) 91.0 ml/min BUN/Creatinine Ratio 22.4 H (10-20) Glucose 163 H (70-99(Fasting)) mg/dl POC Glucose (70-99) mg/dl Estimat Average Glucose Pending Hemoglobin A1c Pending Calcium 9.5 (8.5-10.1) mg/dl Total Bilirubin 0.4 (0.2-1.0) mg/dl AST 19 (13-39) U/L ALT 15 (7-52) U/L Alkaline Phosphatase 47 (34-104) U/L Troponin I High Sens (0-14) pg/ml Total Protein 6.8 (6.0-8.3) gm/dl Albumin 4.1 (3.4-5.0) gm/dl Globulin 2.7 (2.5-4.0) gm/dl Albumin/Globulin Ratio 1.5 (0.9-2) Triglycerides 155 H (0-150) mg/dl Cholesterol 147 (0-200) mg/dl LDL Cholesterol, Calc 77 mg/dl VLDL Cholesterol, Calc 31 H (0-30) mg/dl HDL Cholesterol 39 mg/dl Cholesterol/HDL Ratio 3.8 (0-5) SARS-CoV-2, RNA, NAAT (NEGATIVE) 08/31/22 08/31/22 08/31/22 Range/Units 22:24 20:12 16:34 WBC (4.8-10.8) K/ul RBC (4.20-5.40) M/uL Hgb (12.0-16.0) g/dl Hct (37.0-47.0) % MCV (80.0-100.0) fL MCH (25.0-34.0) pg MCHC (32.0-36.0) g/dL RDW Std Deviation (36.4-46.3) fL RDW Coeff of Neyda (11.5-14.5) % Plt Count (130-400) K/uL MPV (9.4-12.4) fL Immature Gran % (Auto) % Neut % (Auto) % Lymph % (Auto) % Parmer % (Auto) % Eos % (Auto) % Baso % (Auto) % Neut # (Auto) (1.40-6.50) K/uL Lymph # (Auto) (1.2-3.4) K/uL Parmer # (Auto) (0.11-0.59) K/uL Eos # (Auto) (0-0.50) K/uL Baso # (Auto) (0-0.2) K/uL Immature Gran # (Auto) (0.01-0.20) K/uL Sodium (136-145) mmol/L Potassium (3.5-5.1) mmol/L Chloride (98-107) mmol/L Carbon Dioxide (21-32) mmol/L Anion Gap (3-11) BUN (6-23) mg/dl Creatinine (0.6-1.2) mg/dl Est Cr Clr Drug Dosing ml/min Est GFR ( Amer) ml/min Est GFR (Non-Af Amer) ml/min BUN/Creatinine Ratio (10-20) Glucose (70-99(Fasting)) mg/dl POC Glucose 139 H 104 H (70-99) mg/dl Estimat Average Glucose Hemoglobin A1c Calcium (8.5-10.1) mg/dl Total Bilirubin (0.2-1.0) mg/dl AST (13-39) U/L ALT (7-52) U/L Alkaline Phosphatase (34-104) U/L Troponin I High Sens 103.9 H* (0-14) pg/ml Total Protein (6.0-8.3) gm/dl Albumin (3.4-5.0) gm/dl Globulin (2.5-4.0) gm/dl Albumin/Globulin Ratio (0.9-2) Triglycerides (0-150) mg/dl Cholesterol (0-200) mg/dl LDL Cholesterol, Calc mg/dl VLDL Cholesterol, Calc (0-30) mg/dl HDL Cholesterol mg/dl Cholesterol/HDL Ratio (0-5) SARS-CoV-2, RNA, NAAT (NEGATIVE) 08/31/22 08/31/22 Range/Units 15:53 12:14 WBC (4.8-10.8) K/ul RBC (4.20-5.40) M/uL Hgb (12.0-16.0) g/dl Hct (37.0-47.0) % MCV (80.0-100.0) fL MCH (25.0-34.0) pg MCHC (32.0-36.0) g/dL RDW Std Deviation (36.4-46.3) fL RDW Coeff of Neyda (11.5-14.5) % Plt Count (130-400) K/uL MPV (9.4-12.4) fL Immature Gran % (Auto) % Neut % (Auto) % Lymph % (Auto) % Parmer % (Auto) % Eos % (Auto) % Baso % (Auto) % Neut # (Auto) (1.40-6.50) K/uL Lymph # (Auto) (1.2-3.4) K/uL Parmer # (Auto) (0.11-0.59) K/uL Eos # (Auto) (0-0.50) K/uL Baso # (Auto) (0-0.2) K/uL Immature Gran # (Auto) (0.01-0.20) K/uL Sodium (136-145) mmol/L Potassium (3.5-5.1) mmol/L Chloride (98-107) mmol/L Carbon Dioxide (21-32) mmol/L Anion Gap (3-11) BUN (6-23) mg/dl Creatinine (0.6-1.2) mg/dl Est Cr Clr Drug Dosing ml/min Est GFR ( Amer) ml/min Est GFR (Non-Af Amer) ml/min BUN/Creatinine Ratio (10-20) Glucose (70-99(Fasting)) mg/dl POC Glucose (70-99) mg/dl Estimat Average Glucose Hemoglobin A1c Calcium (8.5-10.1) mg/dl Total Bilirubin (0.2-1.0) mg/dl AST (13-39) U/L ALT (7-52) U/L Alkaline Phosphatase (34-104) U/L Troponin I High Sens 100.3 H* D (0-14) pg/ml Total Protein (6.0-8.3) gm/dl Albumin (3.4-5.0) gm/dl Globulin (2.5-4.0) gm/dl Albumin/Globulin Ratio (0.9-2) Triglycerides (0-150) mg/dl Cholesterol (0-200) mg/dl LDL Cholesterol, Calc mg/dl VLDL Cholesterol, Calc (0-30) mg/dl HDL Cholesterol mg/dl Cholesterol/HDL Ratio (0-5) SARS-CoV-2, RNA, NAAT NEGATIVE (NEGATIVE) Medications Administered Current Inpatient Medications Acetaminophen (Acetaminophen 325 Mg Tab) 650 mg PO Q4H PRN PRN Reason: pain/fever Stop: 09/30/22 15:14 Last Admin: 09/01/22 08:38 Dose: 650 mg Aspirin (Aspirin 81 Mg Ectab) 81 mg PO DAILY TON Stop: 10/01/22 08:59 Last Admin: 09/01/22 08:39 Dose: 81 mg Atorvastatin Calcium (Atorvastatin 40 Mg Tab) 40 mg PO DAILY TON Stop: 10/01/22 08:59 Last Admin: 09/01/22 08:39 Dose: 40 mg Dextrose (Dextrose 50% 50 Ml Syringe) 25 - 50 ml IV UD PRN; Protocol PRN Reason: Hypoglycemia Protocol Stop: 09/30/22 15:14 Duloxetine HCl (Duloxetine Hcl 60 Mg Cap) 60 mg PO DAILY TON Stop: 10/01/22 08:59 Last Admin: 09/01/22 08:39 Dose: 60 mg Enoxaparin Sodium (Enoxaparin Inj 40 Mg/0.4 Ml Syr) 40 mg SQ Q12H TON Stop: 09/30/22 15:59 Last Admin: 09/01/22 05:13 Dose: 40 mg Glucagon (Glucagon For Inj 1 Mg Vial) 1 mg SQ UD PRN; Protocol PRN Reason: Hypoglycemia Protocol Stop: 09/30/22 15:14 Glucose (Glucose 40% Gel 15 Gm Tube) 15 - 30 gm PO UD PRN; Protocol PRN Reason: Hypoglycemia Protocol Stop: 09/30/22 15:14 Glucose (Glucose 10 Tab/Tube) 4 - 8 tab PO UD PRN; Protocol PRN Reason: Hypoglycemia Treatment Stop: 09/30/22 15:14 Lisinopril/HCTZ (Lisinopril/Hctz 20/25mg 1 Tab) 1 tab PO DAILY TON Stop: 10/01/22 08:59 Last Admin: 09/01/22 08:39 Dose: 1 tab Insulin Aspart (Insulin Aspart Per Unit) 0 units SC ACHS [facility] Stop: 09/30/22 16:29 Last Admin: 09/01/22 11:40 Dose: Not Given Lidocaine (Lidocaine 5% 1 Patch) 1 patch TD QAM TON Stop: 10/01/22 08:59 Last Admin: 09/01/22 08:34 Dose: 1 patch Miscellaneous (Remove Lidoderm Patch) 1 each N/A DAILY@2099 [facility] Stop: 09/30/22 20:59 Last Admin: 08/31/22 20:44 Dose: 1 each Miscellaneous (Carbohydrates For Hypoglycemia ) 15 - 30 gm PO UD PRN PRN Reason: Hypoglycemia Protocol Stop: 09/30/22 15:14 Miscellaneous (Remove Lidoderm Patch) 1 each N/A DAILY@2099 [facility] [place] Stop: 09/30/22 20:59 Last Admin: 08/31/22 20:44 Dose: 1 each Oxybutynin Chloride (Oxybutynin Chloride Xl 5 Mg Tabcr) 15 mg PO DAILY TON Stop: 10/01/22 08:59 Last Admin: 09/01/22 08:40 Dose: 15 mg Oxycodone HCl (Oxycodone Hcl Ir 5 Mg Tab (Immediate Release)) 5 mg PO Q6H PRN PRN Reason: Pain Stop: 09/14/22 15:38 Last Admin: 09/01/22 09:41 Dose: 5 mg Sertraline HCl (Sertraline Hcl 100 Mg Tablet) 200 mg PO DAILY TON Stop: 10/01/22 08:59 Last Admin: 09/01/22 08:39 Dose: 200 mg Trazodone HCl (Trazodone Hcl 50 Mg Tab) 50 mg PO HS TON Stop: 09/30/22 20:59 Last Admin: 08/31/22 20:40 Dose: 50 mg
[2022-09-01] MEDS: GABAPENTIN 100 MG CAP PO SCH ×2 (13:41→20:12)
--- NOTE | 2022-09-01 15:38 | Cardiology Consultation ---
Date of Consultation September 01, 2022 Assessment & Plan (1) Shoulder pain, left: (2) Neck pain: (3) Left-sided chest pain: (4) Elevated troponin: (5) Diabetes: (6) Hypertension: (7) DJD of shoulder: (8) HTN, goal below 140/90: Plan 2D echocardiogram showed normal LV systolic function Physical exam was able to elicit pinpoint tenderness at the left rotator cuff and pectoralis minor No further cardiac test intervention necessary at this time Recommend orthopedic evaluation and possible MRI History of Present Illness Reason for Consultation: Chest pain Requesting Physician: Iv[facility] hospitalist group Attending Physician: Ho Sales MD History of Present Illness It was my pleasure to see Ms. Aparicio in cardiac consultation today September 01, 2022. She is a very pleasant 67-year-old woman who presented to [facility] emergency department on 08/31/2022 with complaints of chest discomfort. She states that her pain started a few days prior to presentation under her left scapula. Over the next few days she states that the pain then started to radiate around her chest. She describes as a sharp stabbing pain that is constant. She states that this is similar to the pain she had prior to her shoulder surgery in the past. Allergies Allergy/AdvReac Type Severity Reaction Status Date / Time No Known Allergies Allergy Unverified 12/04/15 13:57 Home Medications Medication Instructions Recorded Confirmed Type aspirin 81 mg capsule 81 mg PO DAILY 08/31/22 08/31/22 History atorvastatin 40 mg tablet 40 mg PO DAILY 08/31/22 08/31/22 History duloxetine 60 mg capsule,delayed 60 mg PO DAILY 08/31/22 08/31/22 History release lisinopril 20 1 tab PO DAILY 08/31/22 08/31/22 History mg-hydrochlorothiazide 25 mg tablet meloxicam 15 mg tablet 15 mg PO DAILY 08/31/22 08/31/22 History metformin 1,000 mg tablet 1,000 mg PO BID 08/31/22 08/31/22 History oxybutynin chloride 15 mg 15 mg PO DAILY 08/31/22 08/31/22 History tablet,extended release 24 hr sertraline 100 mg tablet 200 mg PO DAILY 08/31/22 08/31/22 History trazodone 50 mg tablet 50 mg PO HS 08/31/22 08/31/22 History Patient History Medical History Anxiety Depression Diabetes Dyslipidemia Hypertension Incontinence Surgical History History of left shoulder replacement History of total left knee replacement Family History Other Diabetes Heart disease Social History Smoking Status: Never smoker Hx Alcohol Use: No Hx Substance Use: No Preferred Language: Kyr[place] Shoe Stainer Required: No Beliefs That Will Affect Care: None Current Living Situation: Spouse Other Information That Helps Us Care for You: No Feels Safe at Home: Yes Assistive Devices: Cane and Glasses Review of Systems Review of Systems: All systems reviewed & are unremarkable except as noted in HPI & below Physical Exam Physical Exam: General: Awake, alert and oriented x 3. No acute distress. HEENT: Normocephalic, atraumatic. Pupils equal, round and reactive to light and accommodation. Extraocular muscles are intact. Anicteric sclera. Moist mucous membranes. Neck: No JVD. No bruit. Cardiovascular: Regular. Positive S-4. Normal S-1 and S-2. No S-3. No murmurs or rubs. Pulmonary: Clear to auscultation B/L. No rales, rhonchi or wheezing Abdomen: Bowel sounds x 4, soft. No rebound, guarding or tenderness. No organomegaly. Extremities: No clubbing, cyanosis or edema. +2 pedal pulses bilaterally. Skin: Warm and dry. Results & Data ([facility]) Vital Signs (Past 12 Hours) Vital Signs Temp Pulse Pulse Resp BP Pulse Ox O2 Del Method 09/01/22 15:25 36.9 C 66 21 148/97 H 97 Room Air 09/01/22 14:31 68 09/01/22 11:39 37 C 67 20 143/72 H 98 Room Air 09/01/22 07:00 Room Air 09/01/22 07:42 36.8 C 66 20 179/82 H 98 Room Air 09/01/22 06:00 66 09/01/22 04:00 37.0 C 70 18 168/93 H 94 Room Air
[2022-09-01] MEDS: traZODone HCL 50 MG TAB PO SCH (20:12)
[2022-09-02] MEDS: ENOXAPARIN INJ 40 MG/0.4 ML SYR SQ SCH (03:33)
[2022-09-02] MEDS: oxyCODONE HCL IR 5 MG TAB (IMMEDIATE RELEASE) PO PRN ×2 (03:34→09:33)
[2022-09-02 07:42] LABS: Hematocrit (blood only) 40.2 % (37.0-47.0); Hemoglobin 13.6 g/dl (12.0-16.0); Mean Corpuscular Hemoglobin 29.4 pg (25.0-34.0); Mean Corpuscular Hgb Conc 33.8 g/dL (32.0-36.0); Mean Platelet Volume 10.6 fL (9.4-12.4); Platelet Count 206 K/uL (130-400); RDW Coefficient of Variation 13.1 % (11.5-14.5); RDW Standard Deviation 41.1 fL (36.4-46.3); Red Blood Count 4.62 M/uL (4.20-5.40); White Blood Count 5.15 K/ul (4.8-10.8)
[2022-09-02] MEDS: INSULIN ASPART PER UNIT SC SCH (07:47)
[2022-09-02 07:59] LABS: BUN Creatinine Ratio 16.9 (10-20); Calcium 9.8 mg/dl (8.5-10.1); Creatinine Clr Calc Pharmacy 83.4 ml/min; Est GFR (African American) 92.6 ml/min; Est GFR (Non-African American) 79.9 ml/min; Magnesium 1.8 mg/dl (1.7-2.4); Phosphorus 3.5 mg/dl (2.5-4.9); Potassium 3.8 mmol/L (3.5-5.1)
[2022-09-02 08:01] LABS: Estimated Average Glucose 157 mg/dl; Hemoglobin A1C 7.1 % (4.5-5.6)
[2022-09-02] MEDS: ACETAMINOPHEN 325 MG TAB PO PRN (08:09)
[2022-09-02] MEDS: ASPIRIN 81 MG ECTAB PO SCH (08:10)
[2022-09-02] MEDS: SERTRALINE HCL 100 MG TABLET PO SCH (08:10)
[2022-09-02] MEDS: ATORVASTATIN 40 MG TAB PO SCH (08:10)
[2022-09-02] MEDS: LISINOPRIL/HCTZ 20/25MG 1 TAB PO SCH (08:10)
[2022-09-02] MEDS: DULoxetine HCL 60 MG CAP PO SCH (08:10)
[2022-09-02] MEDS: LIDOCAINE 5% 1 PATCH TD SCH (08:11)
[2022-09-02] MEDS: OXYBUTYNIN CHLORIDE XL 5 MG TABCR PO SCH (08:11)
[2022-09-02] MEDS: GABAPENTIN 100 MG CAP PO SCH (08:11)
--- NOTE | 2022-09-02 08:46 | Electrocardiogram Report ---
Test Reason : Blood Pressure : / mmHG Vent. Rate : 068 BPM Atrial Rate : 068 BPM P-R Int : 134 ms QRS Dur : 088 ms QT Int : 440 ms P-R-T Axes : 034 -58 -24 degrees QTc Int : 467 ms Normal sinus rhythm Left axis deviation Low voltage QRS possible Inferior infarct (cited on or before 01-SEP-2022) Possible Anterolateral infarct (cited on or before 01-SEP-2022) Abnormal ECG When compared with ECG of 01-SEP-2022 05:22, (unconfirmed) No significant change was found Confirmed by Ran Galloway ([id number]) on 09/02/2022 8:46:03 AM Referred By: REFERRED SELF Confirmed By:Danny Galloway
[2022-09-02] MEDS ORDERED: SENNA 8.6 MG TAB PO SCH (09:45)
--- NOTE | 2022-09-02 10:04 | Discharge Summary ---
Date of Service September 02, 2022 Admission HPI Per Admitting Provider Pt is a 67 y/o F with hx of DMII, HTN, HLD, Insomnia, anxiety, Depression, overactive bladder, DDD and DJD came into the ER with 1 week hx of L neck and shoulder blade pain which progressed into L axillary and L anterior chest pain today morning. Per pt and pt was sewing 1 week ago and the pain started after that. Does have hx of L shoulder replacement and DDD. Denied any hx of MO or CVA. At bedside: continued to complain of L neck, shoulder blade, and L anterior chest pain. Denied any SOB, palpitation, leg swelling or orthopnea. Admission Exam Per Admitting Provider General:.NAD, well developed, well nourished, average body habitus HEENT:.Normocephalic and atraumatic, Normal Conjunctiva, EOMI, Sclera is non- icteric Lungs:.No signs of respiratory distress, CTA, no wheezing or crackles Heart:.Normal S1, S2, no murmur Abdominal:.ND, Soft, NT MSK:.TTP of the cervical paravertebral muscle and scapula area, normal ROM of the neck and shoulders with intact strength of the UE, trace b/l LE pitting edema Psych:.AAOx3, normal affect Principal Diagnosis Atypical chest pain, musculoskeletal pain thoracic pain Elevated troponin Discharge Exam General: Obese F laying in bed in NAD HEENT: NC/AT, Normal Conjunctiva, EOMI, Sclera is non-icteric Lungs:No signs of respiratory distress, CTA, no wheezing or crackles Heart: Normal S1, S2, no murmur Chest: bruise at the left side of sternum (from fall) Abdominal: Soft, NT, ND, obese MSK: TTP of the cervical paravertebral muscle and scapula area, normal ROM of the neck and shoulders with intact strength of the UE, trace b/l LE pitting edema Psych:.AAOx3, normal affect Discharge Data Allergies Allergy/AdvReac Type Severity Reaction Status Date / Time No Known Allergies Allergy Unverified 12/04/15 13:57 Consultations 08/31/22 11:52 ED Decision to Admit Stat 08/31/22 15:15 Consult Cardiology Routine Ordered Studies 08/31/22 08:31 CT angio chest PE protocol Stat FINDINGS: CTA: Mild cardiomegaly. No pericardial effusion. Mild coronary artery calcifications. Mild ectasia of the ascending thoracic aorta, 3.9 cm. No aneurysm or dissection. Unremarkable pulmonary artery. Suboptimal evaluation of the segmental and subsegmental branches secondary to contrast bolus timing. CT CHEST: No thyroid nodule or lymphadenopathy. There is no pneumothorax, pleural effusion, airspace consolidation or overt pulmonary edema. Mild bronchial wall thickening. No suspicious pulmonary nodules or masses identified. 4 mm solid nodule the basal left lower lobe, image 119 previously measured 2 mm. 3 mm nodule within the left lower lobe on image 85 likely focal mucous plugging. Central airways are patent. Tiny hiatal hernia. 2.7 cm right adrenal gland adenoma. Hepatic steatosis. Left hepatic lobe hemangioma redemonstrated. Mild distention of the gallbladder. 3 mm nonobstructing calculus of the superior pole left kidney. Unremarkable soft tissues. Left shoulder arthroplasty. Degenerative changes of the right shoulder and spine. IMPRESSION: 1. Unremarkable CTA of the chest. No pulmonary emboli identified. 2. Likely benign 4 mm solid nodule within the left lower lobe. 3. Left nephrolithiasis. 4. Hepatic steatosis. Please refer to below summary of Fleischner criteria recommendations for follow- up of incidental CT nodules (Latanya Samson, Guidelines for management of small pulmonary nodules detected on CT scans: A statement from the Fleischner Society, Radiology 237: [phone].) SOLID NODULES Solitary nodule size: <6 mm * Low risk patients: no follow-up needed * high risk patients: optional CT at 12 months Multiple nodules size: <6 mm * Low risk patients: no routine follow-up * high risk patients: optional CT at 12 months Note: newly detected indeterminate nodule in persons 35 years of age or older. * Low risk patients: minimal or absent history of smoking and/or other known risk factors * high risk patients: history of smoking or of other known risk factors (e.g. first degree relative with lung cancer, or exposure to asbestos, radon, uranium) * if a nodule up to 8 mm is partly solid or is ground glass further follow-up is required after 24 months to exclude possible slow growing adenocarcinoma ([place]) CT cervical spine wo con Stat FINDINGS: Demineralized appearance of the bones. Multilevel degenerative changes include severe disc space narrowing at C4-C5, C5-C6 and C6-C7 with moderate to severe multilevel facet arthrosis. Multilevel central canal or neural foraminal narrowing, suboptimally evaluated by CT technique. Study is mildly motion degraded. The cervical soft tissues appear unremarkable. The visualized lung apices appear clear. IMPRESSION: No acute cervical spine fracture or subluxation. ACT 112: Negative or not required by law. 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 Normal LV systolic function, EF 60 to 65%. No segmental LV wall motion abnormalities are noted. Grade 1 diastolic dysfunction. Poorly visualized valvular structures without significant stenosis or regurg by Doppler. Cardiology consulted -does not recommend any further cardiac test or intervention at this time. Recommends orthopedic evaluation and possible further imaging. L neck pain and Shoulder blade pain: - CT C spine: no acute findings but presence of DDD with moderate to severe multilevel facet arthrosis Demineralized appearance of the bones. Multilevel degenerative changes include severe disc space narrowing at C4-C5, C5-C6 and C6-C7 with moderate to severe multilevel facet arthrosis. Multilevel central canal or neural foraminal narrow ing, suboptimally evaluated by CT technique. Study is mildly motion degraded. The cervical soft tissues appear unremarkable. The visualized lung apices appear clear. -likely 2/2 DDD and MSK - PT/OT - Lidoderm daily , oxycodone prn, hold pts home meloxicam for now - added Gabapentin as pt still w/ pain and also radiation to fingers 09/01 -in the evening discussed with the patient echocardiogram findings, and recommendation from cardiology. Offered orthopedic evaluation and possible imaging while in the hospital. Patient follows with [facility] orthopedics at [facility] and would like to continue to discuss with them any further imaging and interventions. She feels comfortable to do that, given pain medications that she is getting now in the hospital I again discussed with the patient this morning, September 02. She feels well overall, and comfortable with the current pain medication regimen. She tells me that she already called her PCP and has appointment scheduled for tomorrow. She will then further arrange follow-up with orthopedics. Incidental Pulm nodule on CTA chest: -4mm -pt is a non smoker and no prior hx of chest radiation thus low risk and no need for follow up -will make pcp aware DMII: -will hold metformin -ISS HTN: -continue Lisinopril-HCTZ PENELOPE/Insomnia/Overactive bladder: -Continue home meds Total Time Total Time Spent Total Time Spent (In Minutes): 40 Discharge Plan Discharge Items Patient Disposition: Home - Self-Care Reason For Visit: CP WITH ELEVATED TROP Discharge Diagnosis: Atypical chest pain, musculoskeletal pain thoracic pain Elevated troponin Activity: Per Instructions section Non-emergency contact: Primary Care Provider and Specialist Call non-emergency contact if: you have any medication questions and your symptoms worsen Follow-up/Referrals: Armida Fernandes DO [Primary Care Provider] - Diet: Carb Consistent or DM2 and Heart Healthy Addtl Attending Provider Instructions: Follow-up with primary care physician, and orthopedic surgeon. Recommend to follow-up with primary care physician within 1 week, the appointment was scheduled for you for tomorrow 09/03/2022 For pain, you were prescribed oxycodone and gabapentin. Take gabapentin 100 mg 3 times daily as prescribed. Take oxycodone 5 mg every 4 hours, as needed. Recommend to take stool softeners while taking opiate type of pain medication to prevent constipation. Also recommend using lidocaine patch, this can be obtained [id number], often under the name Salonpas. Pending Studies at Discharge: No Stand-Alone Forms: My [facility] ObjectVideo, Smoking Cessation Medications and DC Order Prescriptions: New gabapentin 100 mg Capsule 100 mg PO TID Qty: 30 0RF oxycodone 5 mg Tablet 5 mg PO Q6H PRN (Reason: pain) Qty: 14 0RF Continued atorvastatin 40 mg tablet 40 mg PO DAILY trazodone 50 mg tablet 50 mg PO HS meloxicam 15 mg tablet 15 mg PO DAILY sertraline 100 mg tablet 200 mg PO DAILY metformin 1,000 mg tablet 1,000 mg PO BID lisinopril-hydrochlorothiazide 20-25 mg tablet 1 tab PO DAILY duloxetine 60 mg capsule,delayed release(DR/EC) 60 mg PO DAILY aspirin 81 mg Capsule 81 mg PO DAILY oxybutynin chloride 15 mg Tablet Extended Release 24hr 15 mg PO DAILY Discharge Orders: Discharge Order (Routine); Ordered 09/02/22 Ordered By: Ho Barnes/Other Patient Handouts: Managing Type 2 Diabetes, [facility] for Diabetes Admission Data Admit Date/Time: 08/31/22 13:07 Attending Provider: Ho Sales Admit Provider: Milady Alba Primary Care Provider: Armida Fernandes Other Providers: Milady Alba ; Marcus Valente
--- NOTE | 2022-09-02 11:29 | Electrocardiogram Report ---
Test Reason : Blood Pressure : / mmHG Vent. Rate : 066 BPM Atrial Rate : 066 BPM P-R Int : 142 ms QRS Dur : 088 ms QT Int : 472 ms P-R-T Axes : 071 -73 -30 degrees QTc Int : 494 ms Normal sinus rhythm Low voltage QRS Left anterior fascicular block Poor R wave progression, consider anterior MS vs. lead placement vs. LVH Abnormal ECG When compared with ECG of 31-AUG-2022 08:10, (unconfirmed) Incomplete right bundle branch block is no longer Present Borderline criteria for Anterior infarct are now Present Borderline criteria for Anterolateral infarct are now Present Confirmed by Ran Galloway ([id number]) on 09/02/2022 11:28:55 AM Referred By: REFERRED SELF Confirmed By:Danny Galloway
== END 2022-09-02 10:30 | disposition home or self-care (01) | DRG 552 ==
LOC: ED 08:00 → SUATTDRO 13:07 → 2W 13:07

== ENCOUNTER 2025-03-06 14:42 | Inpatient (IN) ==
--- NOTE | 2025-03-06 15:00 | Emergency Department Note ---
Impression & Plan Syncope, Acidosis, lactic, Metabolic acidosis, Diarrhea, Laceration of lip, ROCÍO (acute kidney injury), BBB (bundle branch block) ED Provider Note NAME: RANDY DENNISON AGE: 70 SEX: F : 1955 ARRIVES VIA: Ambulance INFORMANT: Patient, EMS ED PROVIDER(S): Dayday Dumont DO CHIEF COMPLAINT: Syncope HPI: The patient is a 70-year-old female who presented to the emergency department after having a syncopal episode. The patient was having episodes of nausea vomiting and diarrhea. She had multiple episodes of diarrhea and then she had a syncopal episode. The patient denies having any fever or chest pain. She denies having any headache. She did bite her tongue when she passed out but there is no reported seizure. The patient was noted to have hypotension prior to arrival. I did get a prehospital notification about the patient. She was given a liter of normal saline prior to arrival. ROS: See above HPI for pertinent positives & negatives. A total of 10 systems reviewed and were otherwise negative. PAST MEDICAL HISTORY: See Below PAST SURGICAL HISTORY: See Below FAMILY HISTORY: See Below SOCIAL HISTORY: See Below HOME MEDICATIONS: See Below ALLERGIES: See Below VITALS: See Below PHYSICAL EXAMINATION: GENERAL: Patient is awake alert in no acute distress patient is resting comfortably and showing no signs of anxiety EYES: The conjunctivae are clear. The pupils are round and reactive. EARS, NOSE, MOUTH AND THROAT: The nose is without any evidence of any deformity. Dried blood was noted around the mouth. NECK: The neck is nontender and supple. RESPIRATORY: Normal respiratory effort is noted there is no evidence of wheezing rhonchi or rales CARDIOVASCULAR: Regular rate and rhythm noted there no murmurs rubs or gallops normal S1 normal S2. GASTROINTESTINAL: The abdomen is soft and mildly distended. There is no specific tenderness guarding or rigidity. Rectal exam revealed brown stool which was heme-negative. MUSCULOSKELETAL/EXTREMITIES: There is no evidence of gross deformity full range of motion is noted in the hips and shoulders. SKIN: There is no obvious evidence of any rash. There are no petechiae, pallor or cyanosis noted. NEUROLOGIC: Patient is awake alert and oriented x3. Strength was symmetric. MEDICAL DECISION MAKING: The patient is a 70-year-old female who presented to the emergency department after having an episode of syncope. The patient was noted to be hypotensive prior to arrival. She was treated with IV fluids. She was treated with a liter of fluid prior to arrival. The patient was given another liter of fluid in the emergency department. I discussed patient's laboratory and radiographic studies with her. She continued to have episodes of diarrhea. The patient was found to have a significant lactic acidosis. She was acidotic. Her EKG did show some changes of a new bundle branch block pattern. I discussed the patient's laboratory radiographic studies with the on-call [facility]. The patient was found to have a positive E. coli in her stool. The patient would likely benefit from further inpatient management. At this time antibiotics were held until the better choice could be made given her QTc. The patient was feeling much better and had no abdominal tenderness. Initial CAT scans were ordered but we will hold off on this until the patient's condition would warrant such imaging. Triage Nursing notes reviewed. Prior medical records reviewed Vital Signs: reviewed and remarkable for initial hypotension. Differential diagnosis: Vasovagal event, dehydration, infection, hypoglycemia, electrolyte abnormalities, cardiac sources, intracerebral event, pulmonary embolism, seizure, toxicologic, neurologic, as well as other pathologies. ER treatment provided: See below Diagnostics interpreted by me: ECG: EKG was obtained in the emergency department. My interpretation is normal sinus rhythm at 72 bpm. There is no PVCs noted. Right bundle branch block pattern was noted. This was compared to a tracing from September 01, 2022. The bundle branch is new compared to the previous tracing. Cardiac Monitoring: An order was placed for continuous cardiac monitoring. The monitor shows a rate of 78 bpm with sinus rhythm. Laboratory studies: As stated above and show below. Imaging studies: See below. Radiographic imaging was reviewed by myself Consultation(s): I discussed this case with Dr. Caldwell who is on-call for the [facility] group. ED COURSE: Procedures: none Critical Care: I have personally spent greater than 40 minutes of critical care time in the direct management of this patient. This includes bedside care, interpretation of diagnostic studies, and testing, discussion with consultants, patient, and family members, and other required patient management activities. This 40 minutes is in excess of all separately billable procedures. Past Med/Surg History Problem List (Updated 03/06/25 @ 18:03 by Dayday Dumont DO) BBB (bundle branch block) (Acute) ROCÍO (acute kidney injury) (Acute) Laceration of lip (Acute) Diarrhea (Acute) Metabolic acidosis (Acute) Acidosis, lactic (Acute) Syncope (Acute) Hypotension HTN, goal below 140/90 DMII (diabetes mellitus, type 2) Pulmonary nodule Shoulder pain, left Neck pain Left-sided thoracic back pain (Acute) Left-sided chest pain (Acute) Elevated troponin (Acute) Degenerative disc disease, cervical (Acute) Depression Anxiety Incontinence Dyslipidemia Diabetes Hypertension DJD of shoulder Left knee DJD (Acute) Left knee pain (Acute) Left-sided low back pain with sciatica (Acute) Sciatic leg pain (Acute) Surgical History History of left shoulder replacement History of total left knee replacement Family History Other Diabetes Heart disease Social History Smoking Status: Former smoker Hx Alcohol Use: No Hx Substance Use: No Preferred Language: Malawian [employer] Se[employer] Feeder Required: No Beliefs That Will Affect Care: None Current Living Situation: Spouse Feels Safe at Home: Yes Assistive Devices: Cane and Glasses Allergies Allergies Allergy/AdvReac Type Severity Reaction Status Date / Time No Known Allergies Allergy Unverified 03/06/25 16:00 Home Meds Home Medications Medication Instructions Recorded Confirmed aspirin 81 mg capsule 81 mg PO HS 08/31/22 03/06/25 atorvastatin 40 mg tablet 40 mg PO 08/31/22 03/06/25 lisinopril 20 1 tab PO DAILY 08/31/22 03/06/25 mg-hydrochlorothiazide 25 mg tablet meloxicam 15 mg tablet 15 mg PO [facility] 08/31/22 03/06/25 metformin 1,000 mg tablet 1,000 mg PO BID 08/31/22 03/06/25 sertraline 100 mg tablet 200 mg PO [facility] 08/31/22 03/06/25 trazodone 50 mg tablet 25 mg PO 08/31/22 03/06/25 gabapentin 300 mg capsule 300 mg PO TID 03/06/25 03/06/25 glucosamine sulfate 750 mg tablet 750 mg PO DAILY 03/06/25 03/06/25 mirabegron 25 mg tablet,extended 25 mg PO QAM 03/06/25 03/06/25 release 24 hr (Myrbetriq) semaglutide 2 mg/dose (8 mg/3 mL) 2 mg subcut WK 03/06/25 03/06/25 subcutaneous pen injector (Ozempic) Results & Data (ED) Vital Signs Vital Signs - 24 hr 03/06/25 14:51 03/06/25 14:51 03/06/25 14:51 Pulse Rate 74 Pulse Rate [Apical] 74 Pulse Rate from SpO2 Sensor Respiratory Rate 16 16 Respiratory Effort / Characteristics Non-Labored Spontaneous Respiratory Depth Normal Blood Pressure Blood Pressure Mean Blood Pressure Position Pulse Oximetry 95 95 Oxygen Delivery Method Room Air Room Air Sepsis Recent Fever Within 48 Hours Sepsis New/Unexplained Change in Mental Status Sepsis Action Taken by Nursing 03/06/25 14:53 03/06/25 15:20 03/06/25 15:25 Pulse Rate 78 75 76 Pulse Rate [Apical] Pulse Rate from SpO2 Sensor 75 Respiratory Rate 17 17 Respiratory Effort / Characteristics Non-Labored Spontaneous Respiratory Depth Normal Blood Pressure 103/34 L 79/58 L Blood Pressure Mean 57 70 Blood Pressure Position Sitting Pulse Oximetry 95 95 Oxygen Delivery Method Room Air Room Air Sepsis Recent Fever Within 48 Hours No Sepsis New/Unexplained Change in Mental Status N/A Sepsis Action Taken by Nursing No Action Required 03/06/25 15:30 03/06/25 16:00 03/06/25 16:01 Pulse Rate 73 80 78 Pulse Rate [Apical] Pulse Rate from SpO2 Sensor 80 79 Respiratory Rate 16 19 22 Respiratory Effort / Characteristics Respiratory Depth Blood Pressure 94/54 L 136/64 136/64 Blood Pressure Mean 67 88 83 Blood Pressure Position Pulse Oximetry 95 92 96 Oxygen Delivery Method Room Air Room Air Room Air Sepsis Recent Fever Within 48 Hours Sepsis New/Unexplained Change in Mental Status Sepsis Action Taken by Nursing 03/06/25 16:15 03/06/25 16:30 03/06/25 16:53 Pulse Rate 78 73 Pulse Rate [Apical] Pulse Rate from SpO2 Sensor 97 H Respiratory Rate 17 18 Respiratory Effort / Characteristics Respiratory Depth Blood Pressure 117/61 124/71 108/58 L Blood Pressure Mean 79 88 83 Blood Pressure Position Pulse Oximetry 96 Oxygen Delivery Method Room Air Sepsis Recent Fever Within 48 Hours Sepsis New/Unexplained Change in Mental Status Sepsis Action Taken by Nursing 03/06/25 16:57 03/06/25 17:15 Pulse Rate 79 78 Pulse Rate [Apical] Pulse Rate from SpO2 Sensor 80 78 Respiratory Rate 16 19 Respiratory Effort / Characteristics Respiratory Depth Blood Pressure 113/69 Blood Pressure Mean 94 Blood Pressure Position Pulse Oximetry 94 96 Oxygen Delivery Method Room Air Room Air Sepsis Recent Fever Within 48 Hours Sepsis New/Unexplained Change in Mental Status Sepsis Action Taken by [facility] Medications Current Medication List: was personally reviewed by me Laboratory Data Attestation: I reviewed the patient's lab results. 03/06/25 15:04 03/06/25 15:04 Lab Results 03/06/25 03/06/25 03/06/25 Range/Units 15:04 15:07 15:32 WBC 16.39 H (4.8-10.8) K/ul RBC 4.49 (4.20-5.40) M/uL Hgb 13.2 (12.0-16.0) g/dl Hct 43.5 (37.0-47.0) % MCV 96.9 (80.0-100.0) fL MCH 29.4 (25.0-34.0) pg MCHC 30.3 L (32.0-36.0) g/dL RDW Std Deviation 45.7 (36.4-46.3) fL RDW Coeff of Neyda 13.0 (11.5-14.5) % Plt Count 288 (130-400) K/uL MPV 10.5 (9.4-12.4) fL Immature Gran % (Auto) 0.4 % Neut % (Auto) 82.4 % Lymph % (Auto) 14.5 % [place] % (Auto) 1.8 % Eos % (Auto) 0.5 % Baso % (Auto) 0.4 % Neut # (Auto) 13.50 H (1.40-6.50) K/uL Lymph # (Auto) 2.38 (1.20-3.40) K/uL [place] # (Auto) 0.29 (0.11-0.59) K/uL Eos # (Auto) 0.09 (0.00-0.50) K/uL Baso # (Auto) 0.06 (0.00-0.20) K/uL Immature Gran # (Auto) 0.07 (0.01-0.20) K/uL PT 11.0 (9.0-12.0) Seconds INR 1.0 (0.9-1.1) APTT 26 (21-31) Seconds PTT Ratio 1.0 VBG pH 7.09 L (7.36-7.41) VBG pCO2 58 H (38-50) mmHg VBG pO2 26 mmHg VBG HCO3 18 mmol/L VBG O2 Saturation < 60.0 % VBG Base Excess -12.6 mEq/L Sodium 144 (136-145) mmol/L Potassium 4.1 (3.5-5.1) mmol/L Chloride 105 (98-107) mmol/L Carbon Dioxide 20 L (21-32) mmol/L Anion Gap 19 H (3-11) BUN 20 (6-23) mg/dl Creatinine 1.50 H (0.6-1.2) mg/dl Est Cr Clr Drug Dosing 39.7 ml/min eGFR 37.26 BUN/Creatinine Ratio 13.3 (10-20) Glucose 210 H (70-99(Fasting)) mg/dl Lactate 12.1 H* (0.4-2.0) mmol/L Calcium 9.5 (8.6-10.3) mg/dl Magnesium 2.0 (1.7-2.4) mg/dl Total Bilirubin 0.6 (0.2-1.0) mg/dl Direct Bilirubin 0.2 (0-0.2) mg/dl AST 29 (13-39) U/L ALT 14 (7-52) U/L Alkaline Phosphatase 62 (34-104) U/L Troponin I High Sens 8.7 (0-14) pg/ml Total Protein 6.5 (6.0-8.3) gm/dl Albumin 3.8 (3.4-5.0) gm/dl Procalcitonin 0.08 (0-0.5) ng/ml Stl C. cayetanensis PCR Not Detected (NotDetected) Stool Rotavirus A PCR Not Detected (NotDetected) Stl Adenov F 40/41 PCR Not Detected (NotDetected) Stool Astrovirus (PCR) Not Detected (NotDetected) Stool Campylobacter PCR Not Detected (NotDetected) Stl C. diff Tox B Gene Negative Cdiff Gene (Neg) Stl C. diff 027-NAP1-BI NEGATIVE Stool Cryptosporidium PCR Not Detected (NotDetected) Stl E.coli Shiga Tox PCR Not Detected (NotDetected) Stl Enterotoxigenic E PCR Not Detected (NotDetected) Stool EPEC (PCR) Not Detected (NotDetected) Stool EAEC (PCR) DETECTED A* (NotDetected) Stl E. histolytica PCR Not Detected (NotDetected) Stool Giardia Lamblia PCR Not Detected (NotDetected) Stool Salmonella PCR Not Detected (NotDetected) Stool Sapovirus (PCR) Not Detected (NotDetected) Stl P. shigelloides PCR Not Detected (NotDetected) Stl Shigella/EIEC PCR Not Detected (NotDetected) St Y.enterocolitica PCR Not Detected (NotDetected) Stool Vibrio (PCR) Not Detected (NotDetected) Stl Vibrio cholerae PCR Not Detected (NotDetected) Stl Norovirus GI/GII PCR Not Detected (NotDetected) SARS-CoV-2 (PCR) NEGATIVE (Negative) Influenza Type A (PCR) Negative (Neg) Influenza Type B (PCR) Negative (Neg) RSV (RT-PCR) Negative (Neg) 03/06/25 Range/Units 17:04 WBC (4.8-10.8) K/ul RBC (4.20-5.40) M/uL Hgb (12.0-16.0) g/dl Hct (37.0-47.0) % MCV (80.0-100.0) fL MCH (25.0-34.0) pg MCHC (32.0-36.0) g/dL RDW Std Deviation (36.4-46.3) fL RDW Coeff of Neyda (11.5-14.5) % Plt Count (130-400) K/uL MPV (9.4-12.4) fL Immature Gran % (Auto) % Neut % (Auto) % Lymph % (Auto) % [place] % (Auto) % Eos % (Auto) % Baso % (Auto) % Neut # (Auto) (1.40-6.50) K/uL Lymph # (Auto) (1.20-3.40) K/uL [place] # (Auto) (0.11-0.59) K/uL Eos # (Auto) (0.00-0.50) K/uL Baso # (Auto) (0.00-0.20) K/uL Immature Gran # (Auto) (0.01-0.20) K/uL PT (9.0-12.0) Seconds INR (0.9-1.1) APTT (21-31) Seconds PTT Ratio VBG pH (7.36-7.41) VBG pCO2 (38-50) mmHg VBG pO2 mmHg VBG HCO3 mmol/L VBG O2 Saturation % VBG Base Excess mEq/L Sodium (136-145) mmol/L Potassium (3.5-5.1) mmol/L Chloride (98-107) mmol/L Carbon Dioxide (21-32) mmol/L Anion Gap (3-11) BUN (6-23) mg/dl Creatinine (0.6-1.2) mg/dl Est Cr Clr Drug Dosing ml/min eGFR BUN/Creatinine Ratio (10-20) Glucose (70-99(Fasting)) mg/dl Lactate 14.8 H* (0.4-2.0) mmol/L Calcium (8.6-10.3) mg/dl Magnesium (1.7-2.4) mg/dl Total Bilirubin (0.2-1.0) mg/dl Direct Bilirubin (0-0.2) mg/dl AST (13-39) U/L ALT (7-52) U/L Alkaline Phosphatase (34-104) U/L Troponin I High Sens (0-14) pg/ml Total Protein (6.0-8.3) gm/dl Albumin (3.4-5.0) gm/dl Procalcitonin (0-0.5) ng/ml Stl C. cayetanensis PCR (NotDetected) Stool Rotavirus A PCR (NotDetected) Stl Adenov F 40/41 PCR (NotDetected) Stool Astrovirus (PCR) (NotDetected) Stool Campylobacter PCR (NotDetected) Stl C. diff Tox B Gene (Neg) Stl C. diff 027-NAP1-BI Stool Cryptosporidium PCR (NotDetected) Stl E.coli Shiga Tox PCR (NotDetected) Stl Enterotoxigenic E PCR (NotDetected) Stool EPEC (PCR) (NotDetected) Stool EAEC (PCR) (NotDetected) Stl E. histolytica PCR (NotDetected) Stool Giardia Lamblia PCR (NotDetected) Stool Salmonella PCR (NotDetected) Stool Sapovirus (PCR) (NotDetected) Stl P. shigelloides PCR (NotDetected) Stl Shigella/EIEC PCR (NotDetected) St Y.enterocolitica PCR (NotDetected) Stool Vibrio (PCR) (NotDetected) Stl Vibrio cholerae PCR (NotDetected) Stl Norovirus GI/GII PCR (NotDetected) SARS-CoV-2 (PCR) (Negative) Influenza Type A (PCR) (Neg) Influenza Type B (PCR) (Neg) RSV (RT-PCR) (Neg) Administered Medications Sodium Bicarbonate 150 meq/ (Sterile Water) 1,150 mls @ 125 mls/hr IV .Q9H12M TON Stop: 04/05/25 16:29 Last Admin: 03/06/25 16:59 Dose: 125 mls/hr Documented By: SHERRILL Discontinued Medications Sodium Chloride (Nss) 1,000 mls @ 999 mls/hr IV .Q1H1M ONE Stop: 03/06/25 16:21 Last Infusion: 03/06/25 16:56 Dose: Infused Documented By: Admin: 03/06/25 15:28 Dose: 999 mls/hr Documented By: SHERRILL Sodium Chloride (Nss) 500 mls @ 999 mls/hr IV .Q31M ONE Stop: 03/06/25 16:57 Last Admin: 03/06/25 16:33 Dose: 999 mls/hr Documented By: SHERRILL Azithromycin (Zithromax) 500 mg in 255 mls @ 127.5 mls/hr IV NOW ONE Stop: 03/06/25 19:20 Last Admin: 03/06/25 17:31 Dose: Not Given Documented By: SHERRILL Lidocaine HCl (Lidocaine 1% Local 20 Ml Vial) 5 ml INFIL NOW ONE Stop: 03/06/25 16:19 Last Admin: 03/06/25 16:33 Dose: 5 ml Documented By: SHERRILL Imaging Data Attestation: I personally reviewed and interpreted this imaging study as follows: My Impression: 1 view chest x-ray was obtained in the emergency department. My interpretation is no free air or definite infiltrate, final report below. Radiologist's Impression: Chest X-Ray 03/06/25 14:51 Chest radiograph, one view History: Sepsis Comparison: 08/31/2022 Findings: Single AP view of the chest performed. No focal consolidation or pleural effusion. No pneumothorax. The cardiomediastinal silhouette is within normal limits. Normal pulmonary vascularity. No evidence for lymphadenopathy. No visualized bony or soft tissue abnormality. Left shoulder arthroplasty. Impression: Normal chest radiograph Electronically signed by Ran Figueredo 03-06-2025 3:47 PM Discharge Plan Visit Data Chief Complaint: Syncope ED Provider: Dayday Dumont Discharge Problem: Syncope, Acidosis, lactic, Metabolic acidosis, Diarrhea, Laceration of lip, ROCÍO (acute kidney injury), BBB (bundle branch block) Patient Disposition: Being Evaluated by Hospitalist Condition: Fair Forms Stand Alone Forms: My [facility] Prescriptions Prescriptions: No Action atorvastatin 40 mg tablet 40 mg PO HS trazodone 50 mg tablet 25 mg PO HS meloxicam 15 mg tablet 15 mg PO QAM sertraline 100 mg tablet 200 mg PO QAM metformin 1,000 mg tablet 1,000 mg PO BID lisinopril-hydrochlorothiazide 20-25 mg tablet 1 tab PO DAILY aspirin 81 mg Capsule 81 mg PO HS gabapentin 300 mg capsule 300 mg PO TID glucosamine sulfate [Glucosamine] 750 mg Tablet 750 mg PO DAILY Rx Instructions: administer with a meal mirabegron [Myrbetriq] 25 mg tablet extended release 24 hr 25 mg PO QAM Ozempic 2 mg/dose (8 mg/3 mL) pen injector 2 mg SUBCUT WK Rx Instructions: Sun Referrals Referrals: Armida Fernandes DO [Primary Care Provider] -
[2025-03-06] MEDS: SODIUM CHLORIDE 0.9% 1,000 ML IV ONE ×2 (15:28→18:20)
[2025-03-06 15:29] LABS: Hematocrit (blood only) 43.5 % (37.0-47.0); Hemoglobin 13.2 g/dl (12.0-16.0); Immature Granulocytes # (auto) 0.07 K/uL (0.01-0.20); Immature Granulocytes % (auto) 0.4 %; Mean Corpuscular Hemoglobin 29.4 pg (25.0-34.0); Mean Corpuscular Volume 96.9 fL (80.0-100.0); Platelet Count 288 K/uL (130-400); RDW Standard Deviation 45.7 fL (36.4-46.3); Red Blood Count 4.49 M/uL (4.20-5.40); White Blood Count 16.39 K/ul (4.8-10.8)
[2025-03-06 15:46] LABS: Base Excess VBG -12.6 mEq/L; HCO3 VBG 18 mmol/L; Oxygen Saturation VBG < 60.0 %; PCO2 VBG 58 mmHg (38-50); PO2 VBG 26 mmHg; pH VBG 7.09 (7.36-7.41)
[2025-03-06 15:46] LABS: Alanine Aminotransferase 14.0 U/L (7-52); Alkaline Phosphatase 62.0 U/L (34-104); Anion Gap 19.0 (3-11); Bilirubin,Total 0.6 mg/dl (0.2-1.0); Blood Urea Nitrogen 20.0 mg/dl (6-23); Calcium 9.5 mg/dl (8.6-10.3); Carbon Dioxide 20.0 mmol/L (21-32); Chloride 105.0 mmol/L (98-107); Creatinine Clr Calc Pharmacy 39.7 ml/min; Glucose 210.0 mg/dl (70-99(Fasting)); Magnesium 2.0 mg/dl (1.7-2.4); Potassium 4.1 mmol/L (3.5-5.1); Sodium 144.0 mmol/L (136-145); Total Protein 6.5 gm/dl (6.0-8.3)
--- NOTE | 2025-03-06 15:47 | XRay Report ---
Chest radiograph, one view History: Sepsis Comparison: 08/31/2022 Findings: Single AP view of the chest performed. No focal consolidation or pleural effusion. No pneumothorax. The cardiomediastinal silhouette is within normal limits. Normal pulmonary vascularity. No evidence for lymphadenopathy. No visualized bony or soft tissue abnormality. Left shoulder arthroplasty. Impression: Normal chest radiograph Electronically signed by Ran Figueredo 03-06-2025 3:47 PM
[2025-03-06 15:57] LABS: INR 1.0 (0.9-1.1); Partial Thromboplastin Time 26 Seconds (21-31); Prothrombin Time 11.0 Seconds (9.0-12.0)
[2025-03-06 16:04] LABS: Influenza A virus by PCR Negative (Neg); Influenza B virus by PCR Negative (Neg); SARS CoV2 RNA(COVID-19) Ceph NEGATIVE (Negative)
[2025-03-06 16:16] LABS: Cdiff Toxin B Gene (2yr or >) Negative Cdiff Gene (Neg)
--- NOTE | 2025-03-06 16:22 | Emergency Department Note ---
ED Visit Note Patient was seen and evaluated at the request of my attending physician, Dr. Dumont, for a lower lip laceration. Please see Dr. Dumont dictation for full history of present illness and emergency department course outside of this dictation. In short, the patient had a syncopal episode today that resulted in her injury. On examination she has a curvilinear laceration to the mid lower lip. This does cause a flap laceration measuring roughly 1.0 cm in total length. This does gape and will require repair. Laceration repair. Patient elects to have their laceration repaired. Verbal consent was obtained to perform the procedure. There is an abundance of materials available for the procedure. Patient is not allergic to latex. Using sterile technique the wound was cleaned with Betadine. The area was sterilely draped. 3 ml of 1% buffered lidocaine was used to anesthetize the lip laceration. Once the patient was anesthetized, the wound was copiously irrigated under pressure with sterile saline. The wound was explored and there were no deep structures injured such as tendons, bone, or significant blood vessels. The laceration was repaired using 2 simple interrupted 6-0 vicryl sutures with the wound edges being well approximated. Hemostasis was achieved. The area was cleaned with sterile saline and dressed with bacitracin ointment and bandage. Patient tolerated the procedure well without complications. Blood loss was negligible. .
--- NOTE | 2025-03-06 16:29 | History & Physical Report ---
Date of Service March 06, 2025 Assessment & Plan (1) Hypotension: Plan 70F with PMH DMII, HTN, HLD, Insomnia, anxiety, Depression, overactive bladder who presented to ED today for syncopal episode. #Gastroenteritis -Abrupt onset of copious N/V/D - also likely sick with same -Stool study + For EAEC (E. coli) Plan -There is grade 2C evidence recommending NOT administering abx -Her QTc is 540. Both azith and FQs prolong QTc, risks of torsades outweigh benefits, especially since she will be getting anti-emetics which also raise QTc -Will give supportive care -Should clinical condition worsen, would then start Azith -Will use phenergan for nausea which has lower risk of prolonging QTc -Cardiac monitoring #Hypotension -BP very low on admission but responded to 2L NS bolus -Lactate 12-->14 -WBC 16 -High AGMA -CXR clear -Qualifies as sepsis with above. qSOFA 2 -Despite qualifying for sepsis, suspect her hypotension, lab abnormalities are secondary to volume depletion from vomiting and diarrhea and NOT sepsis -Her lactate cecilio which is very surprising given her completely normal hemodynamics currently. Suspect delayed lactate clearance due to renal dysfunction + home metformin use -Very low clinical suspicion for ischemic colitis given + E. coli and N/V which are not typically seen with ischemic colitis Plan -Continue fluid resuscitation -Observe off abx. risks outweigh benefits -Trend lactic acid #ROCÍO/High AGMA -Cr 1.5 with normal baseline -VBG 7.1/60 -Suspect pre renal from above -Also with high AGMA + resp acidosis -Typically with profuse diarrhea, there is non AGMA due to bicarb losses -Her acid-base disturbance is atypical but there is no other identifiable cause for it other than GI losses -She has no resp issues and her RR is normal. There is no Kussmaul breathing (this would cause a LOW PCO2) Plan -Start bicarb drip -Recheck labs in AM -Avoid nephrotoxic agents if possible -Hold home metformin #DM -HOld metformin given lactic acidosis -SSI BGM ACHS #HTN -HOld home BP regimen for today: lisinopril and hctz #HLD -HOld lipitor for today #Depression -Continue home zoloft and trazodone Greater than 100 minutes were spent discussing with ED, reviewing chart, labs, imaging, talking with patient, placing orders and writing documentation History of Present Illness Chief Complaint: N/V/D, near- syncopal episode Primary Care Provider: Armida Fernandes DO Ms Aparicio is a pleasant 70F with PMH DMII, HTN, HLD, Insomnia, anxiety, Depression, overactive bladder who presented to ED today for syncopal episode. She was in her usual state of health this AM. she was out eating breakfast around 0900. Around 1100, she then felt nauseated and had multiple episodes non bloody emesis. Numerous watery episodes of diarrhea proceeded. She then had a near-syncopal episode. According to , she was lethargic and poorly respon sive but did not lose consciousness. Denies history of same. Denies sick contacts but did endorse large foul smelling loose bowel movement a few hours ago ED Vitals 79/58 -->136/64 following 2L NS boluses Labs significant for leukocytosis, combined AGMA and resp acidosis with pH 7.09, Cr 1.5, normal baseline and lactate of 12 Allergies Allergy/AdvReac Type Severity Reaction Status Date / Time No Known Allergies Allergy Unverified 03/06/25 16:00 Home Medications Medication Instructions Recorded Confirmed Type aspirin 81 mg capsule 81 mg PO HS 08/31/22 03/06/25 History atorvastatin 40 mg tablet 40 mg PO HS 08/31/22 03/06/25 History lisinopril 20 1 tab PO DAILY 08/31/22 03/06/25 History mg-hydrochlorothiazide 25 mg tablet meloxicam 15 mg tablet 15 mg PO QAM 08/31/22 03/06/25 History metformin 1,000 mg tablet 1,000 mg PO BID 08/31/22 03/06/25 History sertraline 100 mg tablet 200 mg PO QAM 08/31/22 03/06/25 History trazodone 50 mg tablet 25 mg PO HS 08/31/22 03/06/25 History gabapentin 300 mg capsule 300 mg PO TID 03/06/25 03/06/25 History glucosamine sulfate 750 mg tablet 750 mg PO DAILY 03/06/25 03/06/25 History mirabegron 25 mg tablet,extended 25 mg PO QAM 03/06/25 03/06/25 History release 24 hr (Myrbetriq) semaglutide 2 mg/dose (8 mg/3 mL) 2 mg subcut WK 03/06/25 03/06/25 History subcutaneous pen injector (Ozempic) Past Med/Surg History Problem List (Updated 03/06/25 @ 17:25 by Dayday Dumont DO) ROCÍO (acute kidney injury) (Acute) Laceration of lip (Acute) Diarrhea (Acute) Metabolic acidosis (Acute) Acidosis, lactic (Acute) Syncope (Acute) Hypotension HTN, goal below 140/90 DMII (diabetes mellitus, type 2) Pulmonary nodule Shoulder pain, left Neck pain Left-sided thoracic back pain (Acute) Left-sided chest pain (Acute) Elevated troponin (Acute) Degenerative disc disease, cervical (Acute) Depression Anxiety Incontinence Dyslipidemia Diabetes Hypertension DJD of shoulder Left knee DJD (Acute) Left knee pain (Acute) Left-sided low back pain with sciatica (Acute) Sciatic leg pain (Acute) Surgical History History of left shoulder replacement History of total left knee replacement Family History Other Diabetes Heart disease Social History Smoking Status: Former smoker Hx Alcohol Use: No Hx Substance Use: No Preferred Language: Amharic 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 No obvious deformities Ext: No Edema cyanosis Skin: Warm, Dry Neuro: AOx3 No focal deficits. Psych: Normal Mood Results & Data Results & Data Vital Signs (Past 12 Hours) Vital Signs Pulse Pulse Resp BP Pulse Ox O2 Del Method 03/06/25 16:00 80 19 136/64 92 Room Air 03/06/25 15:30 73 16 94/54 L 95 Room Air 03/06/25 15:25 76 17 79/58 L 95 Room Air 03/06/25 15:20 75 03/06/25 14:53 78 17 103/34 L 95 Room Air 03/06/25 14:51 74 16 95 03/06/25 14:51 74 16 95 Room Air 03/06/25 14:51 Room Air Laboratory Results Abnormal lab results 03/06/25 03/06/25 Range/Units 15:04 15:32 WBC 16.39 H (4.8-10.8) K/ul MCHC 30.3 L (32.0-36.0) g/dL Neut # (Auto) 13.50 H (1.40-6.50) K/uL VBG pH 7.09 L (7.36-7.41) VBG pCO2 58 H (38-50) mmHg Carbon Dioxide 20 L (21-32) mmol/L Anion Gap 19 H (3-11) Creatinine 1.50 H (0.6-1.2) mg/dl Glucose 210 H (70-99(Fasting)) mg/dl Lactate 12.1 H* (0.4-2.0) mmol/L Diagnostic Findings Chest X-Ray 03/06/25 14:51 Chest radiograph, one view History: Sepsis Comparison: 08/31/2022 Findings: Single AP view of the chest performed. No focal consolidation or pleural effusion. No pneumothorax. The cardiomediastinal silhouette is within normal limits. Normal pulmonary vascularity. No evidence for lymphadenopathy. No visualized bony or soft tissue abnormality. Left shoulder arthroplasty. Impression: Normal chest radiograph Electronically signed by Ran Figueredo 03-06-2025 3:47 PM Code Status & VTE Plan Code Status full
[2025-03-06] MEDS: LIDOCAINE 1% LOCAL 20 ML VIAL INFIL ONE (16:33)
[2025-03-06] MEDS: SODIUM CHLORIDE 0.9% 500 ML IV ONE (16:33)
[2025-03-06 16:46] LABS: Adenovirus F 40/41 PCR Not Detected (NotDetected); Campylobacter PCR Not Detected (NotDetected); Shiga-like Toxin E.coli (STEC) Not Detected (NotDetected); Vibrio species PCR Not Detected (NotDetected)
[2025-03-06 16:51] LABS: Enteroaggregative E.coli(EAEC) DETECTED (NotDetected)
[2025-03-06] MEDS: NA BICARBONATE 8.4% 150 MEQ in SW 1,000 ML IV SCH (16:59)
[2025-03-06] MEDS: AZITHROMYCIN 500 MG/255 ML BAG IV ONE (17:31)
[2025-03-06] MEDS ORDERED: GLUCOSE 10 TAB/TUBE PO PRN (18:06)
[2025-03-06] MEDS ORDERED: GLUCAGON FOR INJ 1 MG VIAL SQ PRN (18:06)
[2025-03-06] MEDS ORDERED: GLUCOSE 40% GEL 15 GM TUBE PO PRN (18:06)
[2025-03-06] MEDS ORDERED: CARBOHYDRATES FOR HYPOGLYCEMIA PO PRN (18:06)
[2025-03-06] MEDS: PROMETHAZINE 12.5 MG/50.5 ML BAG IV STA (18:20)
--- NOTE | 2025-03-06 19:05 | Communication Note ---
Date of Service: March 06, 2025 Repeat Lactate starting to downtrend. EMesis continues. Continue IVF. follow Lactate
[2025-03-06] MEDS ORDERED: PROMETHAZINE 6.25 MG/50.25 ML BAG IV PRN (20:47)
[2025-03-06] MEDS: DEXTROSE 50% 50 ML SYRINGE IV PRN (20:58)
[2025-03-06] MEDS: INSULIN ASPART PER UNIT CHARGE SC SCH (21:05)
[2025-03-06] MEDS: LACTATED RINGER'S 1,000 ML IV ONE ×2 (21:32→23:39)
[2025-03-06] MEDS: HEPARIN SOD 5,000 UNIT/0.5 ML VIAL SQ SCH (21:35)
--- NOTE | 2025-03-06 21:36 | Communication Note ---
Date of Service: March 06, 2025 Made aware by RN of worsening lactic acidosis 12-> 14 -> 17 SBP 100s. Asymptomatic NSVT episode on the floor Patient complaining of left-sided abdominal pain CT abdomen pelvis 1. Mild wall thickening of the mid transverse colon to the distal descending colon with mild surrounding fat stranding. Favor ischemic/inflammatory/infectious colitis over diverticulitis. No pneumatosis, portal venous gas or free air. No abscess. 2. Colonic diverticulosis. 3. Distended gallbladder. 4. Nonobstructing left renal calculi. Largest in the lower pole measures 11 mm. 5. 2.4 cm left renal mildly dense lesion, not adequately characterized. Correlate with priors if available or consider nonemergent MRI. 6. Bilateral low-density adrenal nodules consistent with adenomas. Ap Worsening lactic acidosis secondary to possible bowel ischemia Asymptomatic NSVT Change bicarb drip from admission to LRS N.p.o. [facility] consult Lopressor 1 dose now for NSVT, supplement mag
[2025-03-06 22:49] LABS: Base Excess VBG -14.7 mEq/L; HCO3 VBG 14 mmol/L; Oxygen Saturation VBG < 60.0 %; PCO2 VBG 44 mmHg (38-50); PO2 VBG 34 mmHg; pH VBG 7.12 (7.36-7.41)
[2025-03-07] MEDS: LACTATED RINGER'S 1,000 ML IV SCH ×2 (00:47→10:46)
[2025-03-07] MEDS: METOPROLOL TARTRATE 25 MG TAB PO STA (00:53)
[2025-03-07 02:15] LABS: Base Excess VBG -14.0 mEq/L; HCO3 VBG 15 mmol/L; Oxygen Saturation VBG < 60.0 %; PCO2 VBG 43 mmHg (38-50); PO2 VBG 37 mmHg; pH VBG 7.14 (7.36-7.41)
[2025-03-07 02:21] LABS: Hematocrit (blood only) 37.4 % (37.0-47.0); Hemoglobin 11.1 g/dl (12.0-16.0); Immature Granulocytes # (auto) 0.07 K/uL (0.01-0.20); Immature Granulocytes % (auto) 0.5 %; Mean Corpuscular Hemoglobin 29.2 pg (25.0-34.0); Mean Corpuscular Volume 98.4 fL (80.0-100.0); Platelet Count 223 K/uL (130-400); RDW Standard Deviation 47.9 fL (36.4-46.3); Red Blood Count 3.80 M/uL (4.20-5.40); White Blood Count 15.24 K/ul (4.8-10.8)
--- NOTE | 2025-03-07 02:29 | CT Scan Report ---
Exam(s): CT ABDOMEN + PELVIS Without Contrast EXAM: CT Abdomen and Pelvis Without Intravenous Contrast CLINICAL HISTORY: Reason for exam: L abd pain. TECHNIQUE: Axial computed tomography images of the abdomen and pelvis without intravenous contrast. CTDI is 28.14 mGy and DLP is 1316.89 mGy-cm. Automated exposure control was utilized for the study. A dose lowering technique was utilized adhering to the principles of ALARA. COMPARISON: No relevant prior studies available. FINDINGS: Lung bases: Bibasilar atelectasis/scarring. ABDOMEN: Liver: Unremarkable. Gallbladder and bile ducts: Distended gallbladder. No calcified stones. No ductal dilation. Pancreas: Atrophic pancreas. No ductal dilation. Spleen: Unremarkable. No splenomegaly. Adrenals: Bilateral low-density adrenal nodules consistent with adenomas. Kidneys and ureters: Nonobstructing left renal calculi. Largest in the lower pole measures 11 mm. 2.4 cm left renal mildly dense lesion, not adequately characterized. No hydronephrosis or obstructing calculus. Stomach and bowel: Mild wall thickening of the mid transverse colon to the distal descending colon with mild surrounding fat stranding. Colonic diverticulosis. Stomach is moderately distended with fluid and heterogeneous contents. No bowel obstruction. PELVIS: Appendix: Normal appendix. Bladder: Unremarkable. No stones. Reproductive: Unremarkable as visualized. ABDOMEN and PELVIS: Intraperitoneal space: Unremarkable. No free air. No significant fluid collection. Bones/joints: Degenerative changes of the spine. No acute fracture. No dislocation. Soft tissues: Lobular fat containing ventral hernia. Vasculature: Unremarkable. No abdominal aortic aneurysm. Lymph nodes: Unremarkable. No enlarged lymph nodes. IMPRESSION: 1. Mild wall thickening of the mid transverse colon to the distal descending colon with mild surrounding fat stranding. Favor ischemic/inflammatory/infectious colitis over diverticulitis. No pneumatosis, portal venous gas or free air. No abscess. 2. Colonic diverticulosis. 3. Distended gallbladder. 4. Nonobstructing left renal calculi. Largest in the lower pole measures 11 mm. 5. 2.4 cm left renal mildly dense lesion, not adequately characterized. Correlate with priors if available or consider nonemergent MRI. 6. Bilateral low-density adrenal nodules consistent with adenomas. Communications: Verify Receipt Electronically signed by: Greg Castaneda M.D. 03/07/25 02:27 AM
[2025-03-07 02:47] LABS: Anion Gap 21.0 (3-11); Blood Urea Nitrogen 24.0 mg/dl (6-23); Calcium 8.5 mg/dl (8.6-10.3); Carbon Dioxide 15.0 mmol/L (21-32); Chloride 105.0 mmol/L (98-107); Creatinine Clr Calc Pharmacy 34.6 ml/min; Glucose 144.0 mg/dl (70-99(Fasting)); Magnesium 1.7 mg/dl (1.7-2.4); Potassium 5.0 mmol/L (3.5-5.1); Sodium 141.0 mmol/L (136-145)
[2025-03-07] MEDS: MAGNESIUM SULFATE / D5W 1 GM/100 ML BAG IV SCH (03:02)
[2025-03-07] MEDS: PIPERACILLIN/TAZOBACTAM 4.5 GM/100 ML BAG IV ONE (03:13)
[2025-03-07] MEDS: SODIUM BICARB 8.4% INJ 50 MEQ/50 ML SYR IV STA (04:12)
--- NOTE | 2025-03-07 05:14 | Surgery Consultation ---
<Statement entered by Bubba Parker DO - 03/07/25 08:38> I have seen and examined this patient this am. She feels improved and has no abdominal pain this am. Continue to trend LA and other labs. May have clears this am. Date of Consultation March 07, 2025 Assessment & Plan (1) Colitis: Patient has been admitted on the hospitalist service. From a surgical perspective we recommend the following: Patient appears to have colitis noted on CT scan: The patient did have a stool culture positive for EAEC and her has similar symptoms favoring an infectious etiology of her colitis Initially the patient received 1 dose of Zithromax but this was not continue d due to concern for prolonged QTc on EKG The patient should be continued to be aggressively resuscitated with intravenous fluids Serial lactate levels and labs should continue to be trended As ischemic colitis is not been excluded the treating hospitalist has elected to place the patient on antibiotics in the form of Zosyn Would recommend keeping the patient n.p.o. for the present time The patient's elevated lactic acid level and symptomatology may be due to infectious etiology as she did have a stool culture positive for E. coli and has a family member who has similar symptoms. The elevation of her lactic acid level may be due to severe dehydration so we will continue to trend her lactic acid levels and labs as noted above as well as closely monitoring her symptomatology The patient should be kept n.p.o. for the present time Additional recommendations will be forthcoming based on her clinical course as unfolds History of Present Illness Reason for Consultation: Colitis Attending Physician: Rusty Caldwell DO History of Present Illness This is a 70-year-old female who presented to the emergency department secondary to suffering a syncopal episode. The patient notes that for approximately 2 weeks she has been having some nonspecific abdominal pain when she goes to have bowel movements. She says that she has not had any bloody bowel movements or melanotic bowel movements. The symptoms were not very bothersome, therefore she did not seek medical attention. The patient then notes that her and her went to a local [employer] restaurant as socially thereafter both she and her began having episodes of nausea and vomiting as well as diarrhea. She does note that her symptoms did not appear to be as severe as hers. Patient says that she was going to use the restroom at home when she had a syncopal episode. Because of this she presented to the emergency department. The patient notes that she has been having nausea and vomiting as well as diffuse diarrhea. She again denies any bloody bowel movements or melanotic stools. She does report some abdominal pain greatest in the left lower quadrant. She has not had any recent unintentional weight loss. She says that she has had a colonoscopy in the past and to the best of her knowledge there is no significant pathology on this. She denies any significant cardiac history such as coronary artery disease or atrial fibrillation. Since arrival to the hospital the patient has had labs and imaging which I independently reviewed. The patient did have a chest x-ray that shows no evidence of infiltrate or pleural effusion. A CT scan of the abdomen pelvis was performed. This showed the patient had mild wall thickening of the mid transverse colon to the distal descending colon with some surrounding fat strandinginterpreting radiologist favored colitis to be either infectious, ischemic, or inflammatory nature. There is no pneumatosis, portal venous gas, or free air. There is also no evidence of abscess. Labs included a CBC which it was initially elevated at 16.3 hemoglobin and hematocrit were both within the normal range as was her platelet count. Coagulation studies were normal. More de la cruz did have a venous blood gas with a pH of 7.12. Chemistry profile showed sodium and potassium were normal. Her BUN and creatinine were 21.5. The patient's initial lactic acid level was noted to be 12.1. This was performed at approximately 3:00 PM. This was repeated approximately 2 hours later and had risen to 14.8 and was again repeated approximately 1-1/2 hours later which was decreased at 14.0. There is no elevation of patient's LFTs. Patient did have a stool culture and it was positive for E. coli. The patient was also tested for COVID, influenza AMB, as well as RSV all of which were negative. The patient was subsequent admitted to the hospital. She was noted to be hypotensive in the emergency department with blood pressure in the 70s. She did receive intravenous fluids in the emergency department (1.5 L of sodium chloride and was subsequently placed on a bicarb drip). Due to patient's stool culture being positive for EAEC she was given a dose of Zithromax by the treating emergency room physician and she was admitted on the hospitalist service and continued on intravenous fluids while she was on the floor. The floor nurse noted that she received thus far approximately 3 L of fluid since admission. The patient had her lactic acid levels to further trended and at approximately 10:30 PM repeat lactic acid level was greater than 17. This was followed up with additional lactic acid level approximately 1.5 hours later hours later and had improved slightly to 15.3. I discussed with the nurse and the patient was not initially continued on antibiotics but this has subsequently been started and she is receiving her first dose of Zosyn now. The floor nurse also notes that the patient is having a considerable amount of ectopy. At the time of my visit with the patient she notes that her symptomatology has slightly improved and she feels better than what she did at time of admission. Floor nurse also notes that patient appears somewhat clinically improved. Allergies Allergy/AdvReac Type Severity Reaction Status Date / Time No Known Allergies Allergy Unverified 03/06/25 16:00 Home Medications Medication Instructions Recorded Confirmed Type aspirin 81 mg capsule 81 mg PO HS 08/31/22 03/06/25 History atorvastatin 40 mg tablet 40 mg PO HS 08/31/22 03/06/25 History lisinopril 20 1 tab PO DAILY 08/31/22 03/06/25 History mg-hydrochlorothiazide 25 mg tablet meloxicam 15 mg tablet 15 mg PO QAM 08/31/22 03/06/25 History metformin 1,000 mg tablet 1,000 mg PO BID 08/31/22 03/06/25 History sertraline 100 mg tablet 200 mg PO QAM 08/31/22 03/06/25 History trazodone 50 mg tablet 25 mg PO HS 08/31/22 03/06/25 History gabapentin 300 mg capsule 300 mg PO TID 03/06/25 03/06/25 History glucosamine sulfate 750 mg tablet 750 mg PO DAILY 03/06/25 03/06/25 History mirabegron 25 mg tablet,extended 25 mg PO QAM 03/06/25 03/06/25 History release 24 hr (Myrbetriq) semaglutide 2 mg/dose (8 mg/3 mL) 2 mg subcut WK 03/06/25 03/06/25 History subcutaneous pen injector (Ozempic) Patient History Surgical History History of left shoulder replacement History of total left knee replacement Family History Other Diabetes Heart disease Social History Smoking Status: Never smoker Hx Alcohol Use: Yes Alcohol type: hard liquor Hx Substance Use: No Preferred Language: Thai Communication Ability: Effective Statistical Programmer 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 Required: No Beliefs That Will Affect Care: None Current Living Situation: Spouse Feels Safe at Home: Yes Safety Concerns: Feels Safe At This Time Assistive Devices: None Review of Systems Review of Systems: All systems reviewed & are unremarkable except as noted in HPI & below Physical Exam Constitutional: + obese; no acute distress Eyes: no conjunctival abnormality ENMT: Ears: no hearing impairment and no external ear abnormality Oral mucosa appears dry Neck: trachea midline Respiratory: normal respiratory effort; no respiratory distress and no labored breathing Cardiovascular: Rate/Rhythm: regular rate and regular rhythm Gastrointestinal (Abdomen): Abdomen is rotund but soft. Patient does have evidence of umbilical hernia but this is not painful to palpation and there is no overlying skin changes. Patient does have some slight tenderness to palpation of left lower quadrant with some slight rebound tenderness. Musculoskeletal: No calf tenderness Skin: No rash noted but skin appears pale Neurologic: moves all extremities Psychiatric: A+Ox3, euthymic affect Results & Data Vital Signs (Past 12 Hours) Vital Signs Temp Pulse Pulse Resp BP BP BP 03/07/25 03:02 36.7 C 86 20 116/70 03/07/25 00:38 123/69 03/06/25 23:24 36.5 C 91 H 20 103/63 03/06/25 21:45 81 03/06/25 21:00 03/06/25 20:51 36.3 C L 86 18 122/63 03/06/25 20:47 03/06/25 20:45 84 03/06/25 20:30 82 21 103/53 L 03/06/25 20:12 81 20 101/53 L 03/06/25 20:06 81 21 113/73 03/06/25 19:31 84 16 102/50 L 03/06/25 19:15 83 18 114/55 L 03/06/25 19:01 81 03/06/25 19:00 81 16 104/55 L 03/06/25 18:15 81 19 147/74 H 03/06/25 18:00 77 21 95/61 L 03/06/25 17:45 78 16 108/57 L 03/06/25 17:15 78 19 113/69 Pulse Ox O2 Del Method 03/07/25 03:02 94 Room Air 03/07/25 00:38 03/06/25 23:24 96 Room Air 03/06/25 21:45 03/06/25 21:00 Room Air 03/06/25 20:51 93 Room Air 03/06/25 20:47 Room Air 03/06/25 20:45 03/06/25 20:30 91 03/06/25 20:12 91 03/06/25 20:06 92 03/06/25 19:31 92 03/06/25 19:15 95 03/06/25 19:01 03/06/25 19:00 98 03/06/25 18:15 95 Room Air 03/06/25 18:00 94 Room Air 03/06/25 17:45 95 Room Air 03/06/25 17:15 96 Room Air PG Care Time/CCT Total # of Minutes Spent Total Time Spent with Patient: Total time spent is greater than 50% in coordination of care (as documented) at patient's floor/unit and/or counseling patient: Coding Level of Care Code 32088 INT INP/OBS CARE 3/75MIN Diagnoses Colitis K52.9
[2025-03-07] MEDS: PIPERACILLIN/TAZOBACTAM 4.5 GM/100 ML BAG IV SCH (07:48)
[2025-03-07] MEDS: SERTRALINE HCL 100 MG TABLET PO SCH (08:47)
[2025-03-07] MEDS: VIBEGRON 75 MG TAB PO SCH (08:47)
[2025-03-07 09:27] LABS: Base Excess VBG -3.8 mEq/L; HCO3 VBG 22 mmol/L; Oxygen Saturation VBG < 60.0 %; PCO2 VBG 39 mmHg (38-50); PO2 VBG 24 mmHg; pH VBG 7.35 (7.36-7.41)
[2025-03-07 09:52] LABS: Anion Gap 14.0 (3-11); Blood Urea Nitrogen 30.0 mg/dl (6-23); Calcium 8.4 mg/dl (8.6-10.3); Carbon Dioxide 22.0 mmol/L (21-32); Chloride 102.0 mmol/L (98-107); Creatinine Clr Calc Pharmacy 33.4 ml/min; Glucose 118.0 mg/dl (70-99(Fasting)); Potassium 5.1 mmol/L (3.5-5.1); Sodium 138.0 mmol/L (136-145)
--- NOTE | 2025-03-07 11:10 | Nephrology Consultation ---
Date of Consultation March 07, 2025 Assessment & Plan (1) ROCÍO (acute kidney injury): Stage 2 nonoliguric ROCÍO, worsening from admission. may continue to worsen before it improves given protracted hypotension OP baseline creatinine 0.9 on 10/2024 and one other 2024 draw and no albuminuria on 2024 assay. p/w creatinine 03/06 1.5, up to 1.8 today. -strict I/O- -IVf change as below -labs as below -UACM ordered as well as straight cath -no indication for [employer] Care coordinated w/ Dr Banks re IVF, ur retention, sepsis status, f/u labs via TTEXT > we are in agreement. (2) Metabolic acidosis: improving/nearly resolved AGMA w/ severely elevated lactate on day of admission and improving now. Admission labs notable for lactate 12 (peaked at > 17 day of admission) and down to 6.2 next day; pH on VBG 7.1 > 7.35 next day (7.36 is wnl). AG on admission 19, peak 21, down to 14 next day. taken off of bicarb gtt and started on LR this am. had LR currently on LR @200 mL hourly; previously had 2.5L NS and 5+ L LR as 0.5L of sterile water w/ 150 mEq sodium bicarb DDX includes (and these are not mutually exclusive) -elevated serum lactate related to IV fluid administration -ischemic bowel potetially in setting of colitis -metformin associated lactic acidosis -sepsis from colitis which was present on admission difficult to evaluate acid base imbalance meaningfully in this situation w/o ABG and w/ constant IVF running; that said, VBG pH normalizing and suspect that some lactate elevation is from IVF. often w/ metformin associated lactic acidosis lactate will be > 6; this dx can certainly coexist w/ other lactate elevation dxs. no benefit in checking metformin level >>changed to NS at 250 mL hourly; could also use plasmalyte but K in this fluid is 5 and pt already high normal K; monitor for hyperchloremia in this setting and NAGMA >>check CK, lactate, VBG, BMP at 2100 > orders in >>avoid LR for this patient for now and watch for chance to add plasmlyte -continue surgery monitoring; low threshold to consider ICU/pressors if we cannot maintain BP, if respiratory or other organ failure emerging (3) Colitis: on imaging; stool cx + for EAEC; + sick contact (4) Renal lesion: 2.4 cm L kidney mild hyperdensity; MRI suggested; [place] [facility] [place] this lesion concerning for RCC >> under active annual surveillance w/ [facility] urology since 2023 >continue urology f/u and annual imaging (5) Adrenal adenoma: BL low density c/w adenoma; no reason to think metabolically active at this time; OP f/u History of Present Illness Reason for Consultation: ROCÍO, AG metabolic acidosis Requesting Physician: Dr Banks Attending Physician: Isidro Banks MD History of Present Illness 70 y/o F whom I'm asked to see for ROCÍO, AGMA was admitted 03/06 w/ same and w/ hypotension in the setting of presenting with syncopal episode after abrupt onset n/v/d. PMH includes DMII, HTN, HLD, anxiety/Depression, overactive bladder. on metformin and meloxicam as OP as well as myrbetriq. About 2hr after breakfast yesterday had multiple episodes of NBNB emesis and then developed watery diarrhea. Admission labs notable for lactate 12 (peaked at > 17 last evening) and down to 6.2 today; pH on VBG 7.1 > 7.35 today. AG on admission 19, peak 21, down to 14 today. Creatinine 1.5 on presentation up to 1.8 today. Feels tired; has cut on her lip where she fell; no sob, no current n/v; still w/ loose BM. no abd pain or distension. no palpitations, no chest pain. no orthopnea. no limb or back pain. RN informed me she had 347 retained urine this afternoon. no frequency, urgency, gross hematuria or dysuria. Allergies Allergy/AdvReac Type Severity Reaction Status Date / Time No Known Allergies Allergy Unverified 03/06/25 16:00 Home Medications Medication Instructions Recorded Confirmed Type aspirin 81 mg capsule 81 mg PO HS 08/31/22 03/06/25 History atorvastatin 40 mg tablet 40 mg PO HS 08/31/22 03/06/25 History lisinopril 20 1 tab PO DAILY 08/31/22 03/06/25 History mg-hydrochlorothiazide 25 mg tablet meloxicam 15 mg tablet 15 mg PO QAM 08/31/22 03/06/25 History metformin 1,000 mg tablet 1,000 mg PO BID 08/31/22 03/06/25 History sertraline 100 mg tablet 200 mg PO QAM 08/31/22 03/06/25 History trazodone 50 mg tablet 25 mg PO HS 08/31/22 03/06/25 History gabapentin 300 mg capsule 300 mg PO TID 03/06/25 03/06/25 History glucosamine sulfate 750 mg tablet 750 mg PO DAILY 03/06/25 03/06/25 History mirabegron 25 mg tablet,extended 25 mg PO QAM 03/06/25 03/06/25 History release 24 hr (Myrbetriq) semaglutide 2 mg/dose (8 mg/3 mL) 2 mg subcut WK 03/06/25 03/06/25 History subcutaneous pen injector (Ozempic) Patient History Surgical History History of left shoulder replacement History of total left knee replacement Family History Other Diabetes Heart disease Social History Smoking Status: Never smoker Hx Alcohol Use: Yes Alcohol type: hard liquor Hx Substance Use: No Preferred Language: Hungarian Communication Ability: Effective Coil Taper Required: No Beliefs That Will Affect Care: None Current Living Situation: Spouse Feels Safe at Home: Yes Safety Concerns: Feels Safe At This Time Assistive Devices: None Review of Systems 2 Review of Systems: All systems reviewed & are unremarkable except as noted in HPI & below Physical Exam 2 Constitutional: well developed, well nourished, + morbidly obese and + physical limitations (2 person assist to roll in bed); no acute distress Eyes: EOM intact bilaterally ENMT: Mouth: + dry oral mucous membranes Respiratory: normal respiratory effort Auscultation: + diminished lung sounds Cardiovascular: RRR, no murmur, no edema Gastrointestinal (Abdomen): Inspection/Auscultation: normal bowel sounds P ercussion/Palpation: abdomen soft; abdomen nontender Musculoskeletal: Extremities: strength 5/5 throughout Skin: no rashes, warm and dry Neurologic: huang, fluent speech, no tremor Results & Data Vital Signs (Past 12 Hours) Vital Signs Temp Pulse Pulse Resp BP BP Pulse Ox 03/07/25 10:07 82 108/66 92 03/07/25 07:54 36.8 C 81 16 94/51 L 91 03/07/25 05:47 82 03/07/25 03:02 36.7 C 86 20 116/70 94 03/07/25 00:38 123/69 03/06/25 23:24 36.5 C 91 H 20 103/63 96 O2 Del Method 03/07/25 10:07 Room Air 03/07/25 07:54 Room Air 03/07/25 05:47 03/07/25 03:02 Room Air 03/07/25 00:38 03/06/25 23:24 Room Air Laboratory Results 03/07/25 02:04 03/07/25 09:11 stool + EAEC Diagnostic Findings CT a/p non con Lung bases: Bibasilar atelectasis/scarring. ABDOMEN: Liver: Unremarkable. Gallbladder and bile ducts: Distended gallbladder. No calcified stones. No ductal dilation. Pancreas: Atrophic pancreas. No ductal dilation. Spleen: Unremarkable. No splenomegaly. Adrenals: Bilateral low-density adrenal nodules consistent with adenomas. Kidneys and ureters: Nonobstructing left renal calculi. Largest in the lower pole measures 11 mm. 2.4 cm left renal mildly dense lesion, not adequately characterized. No hydronephrosis or obstructing calculus. Stomach and bowel: Mild wall thickening of the mid transverse colon to the distal descending colon with mild surrounding fat stranding. Colonic diverticulosis. Stomach is moderately distended with fluid and heterogeneous contents. No bowel obstruction. PELVIS: Appendix: Normal appendix. Bladder: Unremarkable. No stones. Reproductive: Unremarkable as visualized. ABDOMEN and PELVIS: Intraperitoneal space: Unremarkable. No free air. No significant fluid collection. Bones/joints: Degenerative changes of the spine. No acute fracture. No dislocation. Soft tissues: Lobular fat containing ventral hernia. Vasculature: Unremarkable. No abdominal aortic aneurysm. Lymph nodes: Unremarkable. No enlarged lymph nodes. IMPRESSION: 1. Mild wall thickening of the mid transverse colon to the distal descending colon with mild surrounding fat stranding. Favor ischemic/inflammatory/infectious colitis over diverticulitis. No pneumatosis, portal venous gas or free air. No abscess. 2. Colonic diverticulosis. 3. Distended gallbladder. 4. Nonobstructing left renal calculi. Largest in the lower pole measures 11 mm. 5. 2.4 cm left renal mildly dense lesion, not adequately characterized. Correlate with priors if available or consider nonemergent MRI. 6. Bilateral low-density adrenal nodules consistent with adenomas.
--- NOTE | 2025-03-07 13:57 | Hospitalist Progress Note ---
Date of Service March 07, 2025 Assessment & Plan (1) Hypotension: Plan 70F with PMH DMII, HTN, HLD, Insomnia, anxiety, Depression, overactive bladder who presented to ED today for pre-syncopal episode. Sepsis--POA Enteroaggressive E. coli gastroenteritis/colitis Suspected ischemic colitis --CT ABD:Mild wall thickening of the mid transverse colon to the distal descending colon with mild surrounding fat stranding. Favor ischemic/inflammatory/infectious colitis over diverticulitis. No pneumatosis, portal venous gas or free air. No abscess. Colonic diverticulosis.Distended gallbladder. --Stool positive for EAEC --Blood Cultures: pending Continue IV fluids Empirically on Zosyn Also started on rifaximin (given unavailability of 200 mg tabs--discussed with patient in detail: Who agrees with taking 275 mg tabs as recommended) Avoiding Zithromax/cephalosporins given prolonged QTc Lactic acidosis trending down Acute kidney injury Likely multifactorial prerenal/ATN Anion gap metabolic acidosis/lactic acidosis --Cr 1.8 today Hold lisinopril/HCTZ, meloxicam, metformin Monitor renal function closely Continue IV fluids Nephrology consulted Avoid nephrotoxic agents as able Acute metabolic encephalopathy Likely secondary to above Hypoglycemia contributing as well --CT Head: No acute process Hold sedating medications as able Continue thiamine for now Minimize hypoglycemic episodes Abnormal CT abdomen: Incidental findings: Nephrolithiasis Left renal lesion Bilateral adrenal nodules --CT abd:Nonobstructing left renal calculi. Largest in the lower pole measures 11 mm. 2.4 cm left renal mildly dense lesion, not adequately characterized. Correlate with priors if available or consider nonemergent MRI. Bilateral low- density adrenal nodules consistent with adenomas. --Will need further evaluation as outpatient DM II -Hold metformin Continue insulin while hospitalized Monitor blood glucose levels Avoid/Minimize hypoglycemic episodes as able HTN Hold lisinopril, HCTZ Monitor blood pressure HLD Resume Lipitor as able Depression -Continue home Zoloft and trazodone DVT Px: Heparin SQ Admission and Anticipated Discharge Date Admission Date: March 06, 2025 Subjective Patient is seen and examined at bedside States that her abdominal pain resolved Diarrhea much improved this morning, had only 1 loose small BM RN noticed patient to be mildly confused this afternoon Patient denies any chest pain, dyspnea, nausea, vomiting Review of Systems Review of Systems: All systems reviewed & are unremarkable except as noted in Subjective Physical Exam Physical Exam: Physical Exam: Vitals signs as noted above General Appearance:Overweight, no apparent distress Head: normocephalic, Atraumatic Eyes: normal inspection, EOMI Neck: supple, Trachea midline Respiratory/Chest: Normal breath sounds, CTA, No accessory muscle use Cardiovascular: S1, S2, No murmur Abdomen/GI:Soft, Non tender, Bowel sounds present Extremities/Musculoskeletal:normal inspection, no edema Neurologic/Psych:AAOX3, grossly no focal neurological deficits Skin: normal color, warm Results & Data Results & Data Vital Signs (Past 12 Hours) Vital Signs Temp Pulse Pulse Resp BP Pulse Ox O2 Del Method 03/07/25 11:11 37.4 C 82 16 95/56 L 91 Room Air 03/07/25 10:07 82 108/66 92 Room Air 03/07/25 07:54 36.8 C 81 16 94/51 L 91 Room Air 03/07/25 05:47 82 03/07/25 03:02 36.7 C 86 20 116/70 94 Room Air Laboratory Results Short CBC 03/06/25 03/07/25 Range/Units 15:04 02:04 WBC 16.39 H 15.24 H (4.8-10.8) K/ul Hgb 13.2 11.1 L (12.0-16.0) g/dl Hct 43.5 37.4 (37.0-47.0) % Plt Count 288 223 (130-400) K/uL BMP 03/06/25 03/07/25 03/07/25 15:04 02:04 09:11 Sodium 144 141 138 Potassium 4.1 5.0 D 5.1 Chloride 105 105 102 Carbon Dioxide 20 L 15 L 22 BUN 20 24 H 30 H Creatinine 1.50 H 1.72 H 1.81 H Glucose 210 H 144 H 118 H Calcium 9.5 8.5 L 8.4 L Liver Function 03/06/25 Range/Units 15:04 Total Bilirubin 0.6 (0.2-1.0) mg/dl Direct Bilirubin 0.2 (0-0.2) mg/dl AST 29 (13-39) U/L ALT 14 (7-52) U/L Alkaline Phosphatase 62 (34-104) U/L Albumin 3.8 (3.4-5.0) gm/dl
--- NOTE | 2025-03-07 14:19 | CT Scan Report ---
CT SCAN OF THE BRAIN WITHOUT IV CONTRAST CLINICAL HISTORY: Change in mental status. COMPARISON STUDY: No priors. TECHNIQUE: Unenhanced axial CT scan of the brain is performed from the vertex to the skull base. Imag es are reviewed in the axial, sagittal, coronal planes. A dose lowering technique was utilized adheri ng to the principles of ALARA. The patient was scanned twice due to motion artifact. CT DOSE: 2199.31 mGy.cm FINDINGS: Brain parenchyma: There is age-related involutional change noting mild subcortical and periventricula r microangiopathic disease. There is no hemorrhage, mass effect, or evidence of acute territorial isc hemia by CT criteria. Barahona-white matter differentiation is preserved. No extra-axial fluid collection is seen. Ventricles, sulci, cisterns: Prominent secondary to involutional change. Intracranial vasculature: There is atherosclerotic calcification of the cavernous carotid arteries. Calvarium: Unremarkable. Sinuses and mastoids: The paranasal sinuses are clear. The mastoid air cells are well pneumatized. Orbits: The bony orbits are grossly intact. There is a right ocular lens implant. IMPRESSION: There is no hemorrhage, mass effect, or evidence of acute territorial ischemia by CT crit javier noting a motion degraded examination. ACT 112: Negative or not required by law. Electronically signed by: Olman Magaña M.D. 03/07/2025 2:16 PM
[2025-03-07] MEDS: THIAMINE HCL 100 MG TAB PO SCH (14:48)
[2025-03-07] MEDS: SODIUM CHLORIDE 0.9% 1,000 ML IV SCH (15:15)
[2025-03-07 16:40] LABS: Appearance Urine Cloudy (Clear); Bacteria Urine Automated None Seen (None Seen); Epithelial Cell Urine Auto 0-2 /hpf (0-2); Glucose Urine UA Negative (Negative); RBC Urine Automated 0-2 /hpf (0-2); WBC Urine Automated 0-5 /hpf (0-5)
[2025-03-07] MEDS: ACETAMINOPHEN 325 MG TAB PO PRN (20:16)
[2025-03-07 21:22] LABS: Base Excess VBG 1.7 mEq/L; HCO3 VBG 24 mmol/L; Oxygen Saturation VBG 93.7 %; PCO2 VBG 32 mmHg (38-50); PO2 VBG 62 mmHg; pH VBG 7.49 (7.36-7.41)
[2025-03-07 21:40] LABS: Anion Gap 9.0 (3-11); Blood Urea Nitrogen 36.0 mg/dl (6-23); Calcium 8.1 mg/dl (8.6-10.3); Carbon Dioxide 23.0 mmol/L (21-32); Chloride 103.0 mmol/L (98-107); Creatine Kinase 139.0 U/L (26-192); Creatinine Clr Calc Pharmacy 33.9 ml/min; Glucose 149.0 mg/dl (70-99(Fasting)); Potassium 3.7 mmol/L (3.5-5.1); Sodium 135.0 mmol/L (136-145)
[2025-03-07] MEDS: DIGOXIN 250 MCG in SYRINGE 9 ML IV STA (22:03)
--- NOTE | 2025-03-07 22:04 | Communication Note ---
Date of Service: March 07, 2025 Overnight developments 03/07 810P Patient noted to be in A-fib on the monitor as per RN. Possible transient episode during dayshift. Patient currently comfortable. SBP 90s. Heart rate 120s EKG as per interpretation : rate 120, A-fib, RAD, RBBB, T wave abnormalities inferior leads AP New onset A-fib IV digoxin 1 dose now given borderline BP Low-dose Lopressor for rate control in a.m. TTE, Cardiology consult re: new onset A-fib 03/08 3:40 AM Patient complained of SOB when up to commode as per RN. Fine crackles as per RN exam Chest x-ray as per interpretation minimal congestion Hold IVF Neb treatment Lasix 1 dose once SBP 100s 5 AM Patient noted to have wide-complex tachycardia on the monitor. Heart rate 200s SBP 120s as per RN. Patient comfortable as per RN. EKG as per my interpretation : Rate 180, wide-complex tachycardia, RBBB AP Wide-complex tachycardia NSVT episodes x 2 (03/07) IV amiodarone infusion
[2025-03-07 22:05] LABS: Magnesium 1.9 mg/dl (1.7-2.4)
[2025-03-07] MEDS: POTASSIUM CHLORIDE CRTAB 20 MEQ TABCR PO STA (22:38)
[2025-03-07] MEDS: METOPROLOL TARTRATE 1 MG/ML VIAL IV STA (23:17)
[2025-03-07] MEDS: MAGNESIUM SULFATE / D5W 1 GM/100 ML BAG IV ONE (23:18)
[2025-03-08] MEDS: LEVALBUTEROL 1.25 MG/3 ML NEB NEB STA (04:20)
[2025-03-08] MEDS: IPRATROPIUM BROMIDE NEB SOLN 0.02% 0.5MG/2.5ML VIAL INH STA (04:20)
[2025-03-08] MEDS: DIGOXIN 250 MCG in SYRINGE 9 ML IV STA (04:45)
[2025-03-08] MEDS ORDERED: AMIODARONE IV BOLUS & DRIP IV STA (05:06)
[2025-03-08] MEDS ORDERED: STAT IV Infusion **Titration per Protocol STA (05:06)
[2025-03-08] MEDS ORDERED: 0.2 MICRON FILTER SET 1 EACH IV STA (05:06)
--- NOTE | 2025-03-08 05:06 | XRay Report ---
EXAM: XR chest 1V portable CLINICAL HISTORY: SOB. TECHNIQUE: An X-ray image of the chest is obtained in AP projection. COMPARISON: Comparison is made with the prior examination dated 03/06/2025. FINDINGS: Pulmonary Parenchyma: Lungs are clear bilaterally. No evidence of consolidation, collapse, or focal opacities. No pulmonary nodules are identified. There are prominent pulmonary interstitial markings. No evidence of pleural effusion or pleural thickening. Heart and Mediastinum: Heart size and shape are normal. There are prominent bilateral hilar shadows likely due to vascular enlargement. No mediastinal widening or masses. No hilar or mediastinal lymphadenopathy. Bony Thorax: Bony thorax appears intact without fractures or deformities. Left shoulder implant is noted. Soft Tissues: Soft tissues overlying the chest wall are unremarkable. IMPRESSION: 1. Findings suggestive of mild vascular congestion. 2. No apparent interval changes. Electronically signed by Jose Antonio Guerra 03-08-2025 05:06 AM
[2025-03-08] MEDS: ALBUMIN 25% 12.5 GM/50 ML VIAL IV ONE (05:10)
[2025-03-08] MEDS: AMIODARONE / D5W 150 MG/100 ML BAG IV STA (05:18)
[2025-03-08] MEDS: AMIODARONE / D5W 360 MG/200 ML BAG IV ONE (05:26)
[2025-03-08] MEDS: AMIODARONE 150MG / 100ML D5W IV ONE (05:27)
[2025-03-08] MEDS: AMIODARONE 360MG / 200ML D5W IV ONE (05:27)
[2025-03-08] MEDS: METOPROLOL TARTRATE 1 MG/ML VIAL IV STA (05:32)
[2025-03-08 05:48] LABS: Base Excess VBG 1.0 mEq/L; HCO3 VBG 27 mmol/L; Oxygen Saturation VBG < 60.0 %; PCO2 VBG 48 mmHg (38-50); PO2 VBG 31 mmHg; pH VBG 7.36 (7.36-7.41)
[2025-03-08] MEDS: FUROSEMIDE INJ 20 MG/2 ML VIAL IV ONE (05:52)
[2025-03-08 06:01] LABS: Anion Gap 8.0 (3-11); Blood Urea Nitrogen 34.0 mg/dl (6-23); Calcium 8.3 mg/dl (8.6-10.3); Carbon Dioxide 25.0 mmol/L (21-32); Chloride 104.0 mmol/L (98-107); Creatinine Clr Calc Pharmacy 35.7 ml/min; Glucose 150.0 mg/dl (70-99(Fasting)); Magnesium 2.0 mg/dl (1.7-2.4); Potassium 3.7 mmol/L (3.5-5.1); Sodium 137.0 mmol/L (136-145)
[2025-03-08] MEDS ORDERED: POTASSIUM CHLORIDE / WTR 10 MEQ/100 ML PLCT IV SCH (06:15)
[2025-03-08 06:18] LABS: Thyroid Stimulating Hormone 0.855 uIu/ml (0.300-4.500)
[2025-03-08 08:23] LABS: Hematocrit (blood only) 35.4 % (37.0-47.0); Hemoglobin 11.7 g/dl (12.0-16.0); Mean Corpuscular Hemoglobin 30.1 pg (25.0-34.0); Mean Corpuscular Volume 91.0 fL (80.0-100.0); Platelet Count 153 K/uL (130-400); RDW Standard Deviation 45.5 fL (36.4-46.3); Red Blood Count 3.89 M/uL (4.20-5.40); White Blood Count 8.29 K/ul (4.8-10.8)
[2025-03-08] MEDS: METOPROLOL TARTRATE 25 MG TAB PO SCH (08:29)
[2025-03-08] MEDS: POTASSIUM CHLORIDE CRTAB 20 MEQ TABCR PO STA (08:29)
--- NOTE | 2025-03-08 08:54 | XCELERA ---
[id number]
[2025-03-08] MEDS ORDERED: METOPROLOL TARTRATE 25 MG TAB PO SCH (09:00)
--- NOTE | 2025-03-08 09:18 | Surgery Progress Note ---
Date of Service March 08, 2025 Assessment & Plan (1) Colitis: Plan: Her abdominal pain is much improved and exam is benign Her leukocytosis has resolved and her lactate is basically normal at this point She is tolerating clear liquid diet, can advance as tolerated No plans for any surgical intervention, surgery will sign off at this time, please call with any questions or concerns Admission and Anticipated Discharge Date Admission Date: March 06, 2025 Subjective Patient seen and examined. Denies abdominal pain. Tolerating clear liquids. Afebrile. Review of Systems Constitutional: no fever and no chills Respiratory: no cough and no dyspnea Cardiovascular: no chest pain and no dyspnea on exertion Gastrointestinal: no abdominal pain, no nausea and no vomiting Integumentary: no acne, no non-healing lesions and no skin ulcer Psychiatric: no behavioral changes and no depression Physical Exam Constitutional: WD/WN, vitals as above Neck: trachea midline, no thyromegaly Respiratory: normal respiratory effort, lungs clear to auscultation Cardiovascular: RRR, no murmur, no edema Gastrointestinal (Abdomen): Inspection/Auscultation: abdomen normal to inspection; abdomen not distended Percussion/Palpation: abdomen soft; abdomen nontender and no guarding Skin: no rashes, warm and dry Psychiatric: A+Ox3, euthymic affect Results & Data Vital Signs (Past 12 Hours) Vital Signs Temp Pulse Pulse Resp BP BP Pulse Ox 03/08/25 08:04 118 H 03/08/25 07:53 36.6 C 88 18 115/63 92 03/08/25 06:00 129 H 135/79 03/08/25 05:36 135 H 146/93 H 03/08/25 05:15 154/86 H 03/08/25 05:08 201 H 121/77 03/08/25 04:45 110 H 03/08/25 04:20 135 H 20 99 03/08/25 03:35 36.9 C 98 H 22 158/92 H 97 03/08/25 00:00 127 H 03/07/25 23:33 102 H 117/75 03/07/25 23:17 117 H 112/70 03/07/25 23:00 37.4 C 128 H 20 132/73 96 03/07/25 22:03 133 H 03/07/25 21:59 37.5 C 133 H 20 135/87 91 O2 Del Method O2 Flow Rate 03/08/25 08:04 03/08/25 07:53 Room Air 03/08/25 06:00 03/08/25 05:36 03/08/25 05:15 03/08/25 05:08 03/08/25 04:45 03/08/25 04:20 Oxymask 8 03/08/25 03:35 Oxymask 8.0 03/08/25 00:00 03/07/25 23:33 03/07/25 23:17 03/07/25 23:00 Nasal Cannula 2.0 03/07/25 22:03 03/07/25 21:59 Room Air PG Care Time/CCT Total # of Minutes Spent Total Time Spent with Patient: Total time spent is greater than 50% in coordination of care (as documented) at patient's floor/unit and/or counseling patient: Coding Level of Care Code 07323 SUB INP/OBS CARE 08/07MIN Diagnoses Colitis K52.9
[2025-03-08] MEDS: cefTRIAXone SODIUM 2,000 MG/50 ML BAG IV SCH (11:09)
[2025-03-08] MEDS: AMIODARONE / D5W 360 MG/200 ML BAG IV SCH (11:24)
--- NOTE | 2025-03-08 11:30 | Cardiology Consultation ---
Date of Consultation March 08, 2025 Assessment & Plan (1) Ischemic colitis: (2) Sepsis: (3) PAF (paroxysmal atrial fibrillation): (4) Wide-complex tachycardia: (5) Ventricular tachycardia: (6) Sleep apnea: Plan Complex 70-year-old female admitted to [facility] on March 06, 2025 with weakness, following near syncopal episode and falls, multiple episodes of diarrhea secondary. Workup revealed E. coli gastroenteritis colitis, suspected ischemic colitis, sepsis with acute kidney injury, anion gap metabolic acidosis/lactic acidosis. Lisinopril, HCTZ, meloxicam, and metformin held. Patient treated empirically with Zosyn and rifaximin. I's/O's positive 14.4 L overall. Early last evening patient was noted to have asymptomatic paroxysmal atrial fibrillation with a rapid ventricular response followed by asymptomatic wide- complex tachycardia consistent with ventricular tachycardia. After single dose digoxin patient received IV amiodarone. Beta-ely therapy prescribed this morning. Resting echocardiography with preserved LV systolic function and only mild valvular disease. IV fluids held with patient administered one dose of IV furosemide (20 mg) for suspected volume overload. Examination without overt volume overload this AM. [id number] Score 6 points. Patient with longstanding untreated obstructive sleep apnea. Recommendations: * Continue IV amiodarone * Continue beta-ely therapy with metoprolol tartrate 25 mg twice per day for now. * Avoid digoxin * Discontinue and avoid QTc prolonging agents if able (sertraline, trazodone) * Supplement potassium * Initiate anticoagulation with apixaban (Eliquis) 5 mg twice per day when de termined to be safe. * Maintain telemetry * Daily EKGs * Outpatient ischemic evaluation, Lexiscan nuclear stress testing when recovered from acute illness. * Outpatient evaluation and treatment of sleep apnea Supervising Physician Co-Signing Physician Notes Patient seen and examined. Past medical history, surgical history, social history and family history have been reviewed. The medical record and all the above studies have been reviewed. Case DW CHANTELL including management. New Onset Atrial Fib with RVR Ventricular tachycardia Septic shock - POA Acute Gastroenteritis - POA ROCÍO - POA Ischemic colitis Morbid Obesity CARLOS Metabolic derangements h/o HTN - currently soft BP correct and f/u electrolytes f/u renal function continue amiodarone anticoagulation abx as per primary team avoid hypovolemia keep patient euvolemic salt restriction counseling dietary counseling resume anti-HTN meds as hemodynamics improve continue telemetry monitoring ischemia w/u once acute medical issues have resolved to baseline History of Present Illness Reason for Consultation: Atrial fibrillation with a rapid ventricular response Requesting Physician: [facility] Service, Dr. Zhang Attending Physician: [facility], Dr. Isidro Banks MD History of Present Illness Patient is a 70-year-old female who presented to [facility] on March 06, 2025 via ambulance. Patient describes being in her usual state of health until Friday, March 06, 2025. Patient went out to breakfast at [place] where she had what she describes as a skillet dish. Thereafter they went to [facility] before returning home. When she returned home she began to feel queasy in the stomach which was followed by multiple episodes of watery diarrhea. Patient notes attempting to stand up off of the commode and falling into the garden tub striking her face. Her was able to help her up that time however when attempting to walk down the nguyễn she fell once again and was unable to get up due to significant weakness necessitating her to call 911. Patient was near syncopal but no true syncope. Workup revealed sepsis, E. coli gastroenteritis colitis, suspected ischemic colitis, acute kidney injury, anion gap metabolic acidosis/lactic acidosis. Lisinopril, HCTZ, meloxicam, and metformin held. Patient treated empirically with Zosyn and rifaximin and fluid resuscitated with I's and O's positive 14.4 L overall. Paroxysmal atrial fibrillation observed early in evening on March 07, 2025 with borderline hypotension observed. Per documentation. Patient initially received IV digoxin x 1 dose. Later patient was noted to have wide-complex tachycardia on monitor with heart rates greater than 200 bpm. IV amiodarone initiated. Chest x-ray findings suggestive of mild vascular congestion without interval change. At the time of my evaluation this morning, patient notes feeling much better overall. Diarrhea has significantly improved but not yet resolved. Patient specifically denies palpitations, shortness of breath, chest pain or discomfort, orthopnea, or PND. No fevers or chills. No bleeding issues, denying significant epistaxis, hemoptysis, melena, hematochezia, or vaginal bleeding. Patient notably with untreated obstructive sleep apnea x 17 years. Patient with history of atypical chest discomfort leading to nonischemic pharmacological stress testing. 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 Mother with cervical cancer. Social history: Former smoker. No smokeless tobacco. No significant alcohol. No illegal drug use. Allergies Allergy/AdvReac Type Severity Reaction Status Date / Time No Known Allergies Allergy Unverified 03/06/25 16:00 Home Medications Medication Instructions Recorded Confirmed Type aspirin 81 mg capsule 81 mg PO HS 08/31/22 03/06/25 History atorvastatin 40 mg tablet 40 mg PO HS 08/31/22 03/06/25 History lisinopril 20 1 tab PO DAILY 08/31/22 03/06/25 History mg-hydrochlorothiazide 25 mg tablet meloxicam 15 mg tablet 15 mg PO QAM 08/31/22 03/06/25 History metformin 1,000 mg tablet 1,000 mg PO BID 08/31/22 03/06/25 History sertraline 100 mg tablet 200 mg PO QAM 08/31/22 03/06/25 History trazodone 50 mg tablet 25 mg PO HS 08/31/22 03/06/25 History gabapentin 300 mg capsule 300 mg PO TID 03/06/25 03/06/25 History glucosamine sulfate 750 mg tablet 750 mg PO DAILY 03/06/25 03/06/25 History mirabegron 25 mg tablet,extended 25 mg PO QAM 03/06/25 03/06/25 History release 24 hr (Myrbetriq) semaglutide 2 mg/dose (8 mg/3 mL) 2 mg subcut WK 03/06/25 03/06/25 History subcutaneous pen injector (Ozempic) Patient History Surgical History History of left shoulder replacement History of total left knee replacement Family History Other Diabetes Heart disease Social History Smoking Status: Never smoker Hx Alcohol Use: Yes Alcohol type: hard liquor Hx Substance Use: No Preferred Language: Swedish Communication Ability: Effective 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 Physical Exam Physical Exam: General: A&Ox3. NAD. HENT: Normocephalic. Atraumatic. Eyes: PER. Conjunctiva pink, sclera clear. Neck: Neck veins not appreciated. Heart: Irregular in the 80's. No murmur. No rub. Lungs: Diminished. Decreased. Faint right basilar rales. Abdomen: +BS. Soft. Nontender. No masses or organomegaly. Extremities: Mild edema. No cyanosis Limited neurological examination is without focal deficits. Pulses: Posterior tibial=2/4. Results & Data Vital Signs (Past 12 Hours) Vital Signs Temp Pulse Pulse Resp BP BP BP 03/08/25 10:58 36.7 C 66 18 106/72 03/08/25 10:02 03/08/25 08:04 118 H 03/08/25 07:53 36.6 C 88 18 115/63 03/08/25 06:00 129 H 135/79 03/08/25 05:36 135 H 146/93 H 03/08/25 05:15 154/86 H 03/08/25 05:08 201 H 121/77 03/08/25 04:45 110 H 03/08/25 04:20 135 H 20 03/08/25 03:35 36.9 C 98 H 22 158/92 H 03/08/25 00:00 127 H 03/07/25 23:33 102 H 117/75 Pulse Ox O2 Del Method O2 Flow Rate 03/08/25 10:58 95 Room Air 03/08/25 10:02 Room Air 03/08/25 08:04 03/08/25 07:53 92 Room Air 03/08/25 06:00 03/08/25 05:36 03/08/25 05:15 03/08/25 05:08 03/08/25 04:45 03/08/25 04:20 99 Oxymask 8 03/08/25 03:35 97 Oxymask 8.0 03/08/25 00:00 03/07/25 23:33 03/08/25 ECHOCARDIOGRAM Interpretation Summary Left ventricular systolic function is normal. Left Ventricular Ejection Fraction = 60-65%. Left ventricular diastolic dysfunction is indeterminate. Mild pulmonic valvular regurgitation. There is mild mitral regurgitation. There is mild tricuspid regurgitation Laboratory Results CBC 03/08/25 Range/Units 05:21 WBC 8.29 (4.8-10.8) K/ul RBC 3.89 L (4.20-5.40) M/uL Hgb 11.7 L (12.0-16.0) g/dl Hct 35.4 L (37.0-47.0) % Plt Count 153 (130-400) K/uL Comprehensive Metabolic Panel 03/07/25 03/08/25 Range/Units 20:51 05:21 Sodium 135 L 137 (136-145) mmol/L Potassium 3.7 D 3.7 (3.5-5.1) mmol/L Chloride 103 104 (98-107) mmol/L Carbon Dioxide 23 25 (21-32) mmol/L BUN 36 H 34 H (6-23) mg/dl Creatinine 1.78 H 1.69 H (0.6-1.2) mg/dl Glucose 149 H 150 H (70-99(Fasting)) mg/dl Calcium 8.1 L 8.3 L (8.6-10.3) mg/dl Intake and Output 03/07/25 03/08/25 03/08/25 22:59 06:59 14:59 Intake Total 2103.334 / 6946.668 2391.667 / 6946.668 67.917 / 67.917 Output Total 100 / 1222 950 / 1222 Balance 2003.334 / 5724.668 1441.667 / 5724.668 67.917 / 67.917 Intake: IV 1903.334 / 6136.668 2241.667 / 6136.668 67.917 / 67.917 Albumin 25% 12.5 gm In 50 ml @ 50 / 50 50 mls/hr IV ONE ONE Rx#: [id number] Amiodarone / D5w 150 mg In 100 100 / 100 ml @ 600 mls/hr IV NOW STA Rx#: [id number] Lactated Ringer's 1,000 ml @ 906.667 / 906.667 200 mls/hr IV .Q5H TON Rx#: [id number] Magnesium Sulfate / D5w 1 gm In 100 / 100 100 ml @ 50 mls/hr IV ONE ONE Rx#:[id number] Piperacillin/Tazobactam 4.5 gm 100 / 300 100 / 300 67.917 / 67.917 In 100 ml @ 25 mls/hr IV Q8H TON Rx#:[id number] Sodium Chloride 0.9% 1,000 ml @ 896.667 / 2788.334 1891.667 / 2788.334 250 mls/hr IV .Q4H TON Rx#: [id number] Oral 200 / 810 150 / 810 Output: Urine Amount (Catheter) 100 / 1050 950 / 1050 External 100 / 400 300 / 400 Singer/Indwelling 650 / 650 Other: # Unmeasured Voids 1 Diagnostic Findings EKG from September 01, 2022 revealed normal sinus rhythm at 68 bpm with left axis deviation, low voltage QRS, incomplete right bundle branch block. March 06, 2025 EKG: Normal sinus rhythm at 72 bpm. Right bundle branch block. Possible old lateral infarct. March 07, 2025 EKG: Sinus rhythm at 84 bpm with right bundle branch block, possible inferior and lateral infarct, QTc 515 ms. EKG on March 07, 2025 at 17:43:05 demonstrated sinus rhythm with paroxysmal atrial fibrillation, right bundle branch block with QTc of 505 ms. EKG on March 07, 2025 at 20:02:57 revealed atrial fibrillation with a rapid ventricular response, ventricular rate 121 bpm with left axis deviation, right bundle branch block, QTc 553 ms. EKG on March 08, 2025 at 05:06:40 demonstrates probable atrial fibrillation with rapid ventricular response with paroxysmal episodes of wide-complex tachyc ardia with rates greater then 200 bpm consistent with ventricular tachycardia EKG on March 08, 2025 at 05:08:20 revealed paroxysmal atrial fibrillation with rapid ventricular response with frequent ventricular ectopy, underlying right bundle branch block EKG on March 08, 2025 reveals proximates of wide-complex tachycardia with rates greater than 200 bpm EKG on March 08, 2025 at 05:29:58 reveals atrial fibrillation with rapid ventricular response with frequent unifocal premature ventricular complexes March 08, 2025 echo: Normal left ventricular systolic function. LVEF 60 to 65%. Left ventricular diastolic dysfunction is indeterminate. Mild pulmonary valvular regurgitation. Mild mitral and tricuspid regurgitation. Normal-sized left atrium. No pericardial effusion. PG Care Time/CCT Total # of Minutes Spent Total Time Spent with Patient: Total time spent is greater than 50% in coordination of care (as documented) at patient's floor/unit and/or counseling patient.I spent a total of 80 minutes on the date of service in preparation, delivery, and documentation of the care pro vided to this patient excluding any time spent in the performance of separately billed services. This visit was a split-shared visit with the substantive portion of the medical decision making performed by the supervising surgical orderly/billing provider Dr. Bernal. Coding Level of Care Code 49407 IN/OBS CONSULT LVL 5,80M Diagnoses Ischemic colitis K55.9 Sepsis A41.9 PAF (paroxysmal atrial fibrillation) I48.0 Wide-complex tachycardia R00.0 Ventricular tachycardia I47.20 Sleep apnea G47.30
--- NOTE | 2025-03-08 13:16 | Nephrology Progress Note ---
Date of Service March 08, 2025 Assessment & Plan (1) ROCÍO (acute kidney injury): Plan: Stage 2 nonoliguric ROCÍO, worsening from admission. may continue to worsen before it improves given protracted hypotension OP baseline creatinine 0.9 on 10/2024 and one other 2024 draw and no albuminuria on 2024 assay. p/w creatinine 03/06 1.5, up to 1.8 peak 03/07 and plateau'd at 1.7 today. -strict I/O- -po as tolerated; minimize IVF given arrhythmias overnight -continue serrano one more day at least -hold further lasix unless dypsneic -no indication for CUT OFF MAN (2) Metabolic acidosis: Plan: resolved AGMA w/ severely elevated lactate on day of admission and improving now. Admission labs notable for lactate 12 (peaked at > 17 day of admission) and down to 6.2 next day; pH on VBG 7.1 > 7.35 next day (7.36 is wnl). AG on admission 19, peak 21, down to 14 next day. DDX includes (and these are not mutually exclusive) -elevated serum lactate related to IV fluid administration -ischemic bowel potentially in setting of colitis -metformin associated lactic acidosis -sepsis from colitis which was present on admission difficult to evaluate acid base imbalance meaningfully in this situation w/o ABG and w/ constant IVF running; that said, VBG pH normalizing and suspect that some lactate elevation is from IVF. often w/ metformin associated lactic acidosis lactate will be > 6; this dx can certainly coexist w/ other lactate elevation dxs. no benefit in checking metformin level or ABG at this time per surgery bowels improved and ok to advance diet past clears >>avoid LR for this patient for now and watch for chance to add plasmlyte if IVF needed (3) Colitis: Plan: on imaging; stool cx + for EAEC; + sick contact (4) Renal lesion: Plan: 2.4 cm L kidney mild hyperdensity; MRI suggested; on CT renal in [facility] [place] spring 2024 this lesion concerning for RCC >> under active annual surveillance w/ [facility] urology since 2023 >continue urology f/u and annual imaging (5) Adrenal adenoma: Plan: BL low density c/w adenoma; no reason to think metabolically active at this time; OP f/u Admission and Anticipated Discharge Date Admission Date: March 06, 2025 Subjective new onset AF w/ RVR> had digoxin ON and some c/o sob at 0345 >> IVF held and one lasix dose given; then ventricular tachycardia noted, both AR asx. Review of Systems 2 Review of Systems: All systems reviewed & are unremarkable except as noted in Subjective Physical Exam 2 Constitutional: well developed, well nourished, + morbidly obese and + physical limitations (2 person assist to roll in bed); no acute distress Eyes: EOM intact bilaterally ENMT: Mouth: + dry oral mucous membranes Respiratory: normal respiratory effort Auscultation: + diminished lung sounds Cardiovascular: RRR, no murmur, no edema Gastrointestinal (Abdomen): Inspection/Auscultation: normal bowel sounds P ercussion/Palpation: abdomen soft; abdomen nontender Musculoskeletal: Extremities: strength 5/5 throughout Skin: no rashes, warm and dry Results & Data Vital Signs (Past 12 Hours) Vital Signs Temp Pulse Pulse Resp BP BP Pulse Ox 03/08/25 10:58 36.7 C 66 18 106/72 95 03/08/25 10:02 03/08/25 08:04 118 H 03/08/25 07:53 36.6 C 88 18 115/63 92 03/08/25 06:00 129 H 135/79 03/08/25 05:36 135 H 146/93 H 03/08/25 05:15 154/86 H 03/08/25 05:08 201 H 121/77 03/08/25 04:45 110 H 03/08/25 04:20 135 H 20 99 03/08/25 03:35 36.9 C 98 H 22 158/92 H 97 O2 Del Method O2 Flow Rate 03/08/25 10:58 Room Air 03/08/25 10:02 Room Air 03/08/25 08:04 03/08/25 07:53 Room Air 03/08/25 06:00 03/08/25 05:36 03/08/25 05:15 03/08/25 05:08 03/08/25 04:45 03/08/25 04:20 Oxymask 8 03/08/25 03:35 Oxymask 8.0 Laboratory Results 03/08/25 05:21 03/08/25 05:21 Diagnostic Findings cXR 0400 w/ mild vasc congtesion (images personally reviewed; agree w/ report0
--- NOTE | 2025-03-08 15:10 | XRay Report ---
XR hip RUTH 2v w pelvis HISTORY: 70 years-old Female Hip Pain, recent Fall acute bilateral hip pain status post fall COMPARISON: CT abdomen and pelvis 03/06/2025 TECHNIQUE: AP view of the pelvis with 2 views of the hips bilaterally FINDINGS: Mild osteoarthritis of the hips. Demineralized appearance of the bones. Lumbar levoscoliosis with mod erate to severe degenerative changes. No acute fracture or dislocation identified. IMPRESSION: No acute fracture or dislocation. ACT 112: Negative or not required by law. The above report was generated using voice recognition software. It may contain grammatical, syntax o r spelling errors. Electronically signed by: En Joya M.D. 03/08/2025 3:08 PM
--- NOTE | 2025-03-08 15:55 | Hospitalist Progress Note ---
Date of Service March 08, 2025 Assessment & Plan (1) Hypotension: Plan 70F with PMH DMII, HTN, HLD, Insomnia, anxiety, Depression, overactive bladder who presented to ED today for pre-syncopal episode. Sepsis--POA Enteroaggressive E. coli gastroenteritis/colitis Suspected ischemic colitis Abnormal urinalysis --CT ABD:Mild wall thickening of the mid transverse colon to the distal descending colon with mild surrounding fat stranding. Favor isc hemic/inflammatory/infectious colitis over diverticulitis. No pneumatosis, portal venous gas or free air. No abscess. Colonic diverticulosis.Distended gallbladder. --Stool positive for EAEC --Blood Cultures: Negative to date -- Urine culture pending Received IV fluids Empirically on Zosyn>> transition to Rocephin for now Continue rifaximin to complete 3-day course (given unavailability of 200 mg tabs--discussed with patient in detail: Who agrees with taking 275 mg tabs as recommended) Avoiding Zithromax/cephalosporins given prolonged QTc Lactic acidosis trended down Leukocytosis resolved Surgery following, advance to full liquid diet today Acute kidney injury Likely multifactorial prerenal/ATN Anion gap metabolic acidosis/lactic acidosis --Cr 1.6 today Hold lisinopril/HCTZ, meloxicam, metformin Monitor renal function closely Appreciate nephrology input Avoid nephrotoxic agents as able Acidosis resolved Will defer IV fluids management to nephrology Paroxysmal atrial fibrillation with RVR Asymptomatic wide-complex tachycardia Tank Vascor 6 --Normal TSH --ECHO: EF 60 to 65%. Left ventricular diastolic dysfunction is indeterminate. Mild pulmonic valvular regurgitation. Mild mitral regurgitation. Mild tricuspid regurgitation. Continue IV amiodarone Continue metoprolol titrate 25 mg twice a day Avoid digoxin Monitor and replete electrolytes as needed Appreciate cardiology input Eventually to be transition to Eliquis for anticoagulation Needs outpatient Lexiscan nuclear stress test and polysomnography to rule out sleep apnea Urinary retention Continue Singer for now Voiding trial prior to discharge Acute metabolic encephalopathy Likely secondary to above Hypoglycemia contributing as well --CT Head: No acute process Hold sedating medications as able Continue thiamine for now Minimize hypoglycemic episodes Mental status seem to be back to baseline Abnormal CT abdomen: Incidental findings: Nephrolithiasis Left renal lesion Bilateral adrenal nodules --CT abd:Nonobstructing left renal calculi. Largest in the lower pole measures 11 mm. 2.4 cm left renal mildly dense lesion, not adequately characterized. Correlate with priors if available or consider nonemergent MRI. Bilateral low- density adrenal nodules consistent with adenomas. --Will need further evaluation as outpatient DM II -Hold metformin Continue insulin while hospitalized Monitor blood glucose levels Avoid/Minimize hypoglycemic episodes as able HTN Hold lisinopril, HCTZ Monitor blood pressure HLD Resume Lipitor as able Depression -Continue home Zoloft and trazodone DVT Px: Currently on heparin SQ Plan to transition to Eliquis as able Admission and Anticipated Discharge Date Admission Date: March 06, 2025 Subjective Patient is seen and examined at bedside States having hip pain especially with activity Patient went into A-fib/wide-complex tachycardia overnight Diarrhea only minimal per patient today Denies any chest pain, dyspnea, nausea, vomiting, palpitations, dizziness Review of Systems Review of Systems: All systems reviewed & are unremarkable except as noted in Subjective Physical Exam Physical Exam: Physical Exam: Vitals signs as noted above General Appearance:Overweight, no apparent distress Head: normocephalic, Atraumatic Eyes: normal inspection, EOMI Neck: supple, Trachea midline Respiratory/Chest: Normal breath sounds, CTA, No accessory muscle use Cardiovascular: S1, S2, No murmur Abdomen/GI:Soft, Non tender, Bowel sounds present Extremities/Musculoskeletal:normal inspection, no edema Neurologic/Psych:AAOX3, grossly no focal neurological deficits Skin: normal color, warm Results & Data Results & Data Vital Signs (Past 12 Hours) Vital Signs Temp Pulse Pulse Resp BP BP Pulse Ox 03/08/25 14:05 96 H 03/08/25 10:58 36.7 C 66 18 106/72 95 03/08/25 10:02 03/08/25 08:04 118 H 03/08/25 07:53 36.6 C 88 18 115/63 92 03/08/25 06:00 129 H 135/79 03/08/25 05:36 135 H 146/93 H 03/08/25 05:15 154/86 H 03/08/25 05:08 201 H 121/77 03/08/25 04:45 110 H 03/08/25 04:20 135 H 20 99 O2 Del Method O2 Flow Rate 03/08/25 14:05 03/08/25 10:58 Room Air 03/08/25 10:02 Room Air 03/08/25 08:04 03/08/25 07:53 Room Air 03/08/25 06:00 03/08/25 05:36 03/08/25 05:15 03/08/25 05:08 03/08/25 04:45 03/08/25 04:20 Oxymask 8 Laboratory Results Short CBC 03/08/25 Range/Units 05:21 WBC 8.29 (4.8-10.8) K/ul Hgb 11.7 L (12.0-16.0) g/dl Hct 35.4 L (37.0-47.0) % Plt Count 153 (130-400) K/uL BMP 03/07/25 03/08/25 20:51 05:21 Sodium 135 L 137 Potassium 3.7 D 3.7 Chloride 103 104 Carbon Dioxide 23 25 BUN 36 H 34 H Creatinine 1.78 H 1.69 H Glucose 149 H 150 H Calcium 8.1 L 8.3 L Cardiac Enzymes 03/07/25 Range/Units 20:51 Total Creatine Kinase 139 (26-192) U/L Urine 03/07/25 Range/Units Unknown Urine Color Graham Urine Appearance Cloudy A (Clear) Urine pH 5.0 (4.5-7.5) Ur Specific [place] 1.020 (1.000-1.030) Urine Protein 1+ H (Negative) Urine Glucose (UA) Negative (Negative)
[2025-03-09 06:20] LABS: Hematocrit (blood only) 34.2 % (37.0-47.0); Hemoglobin 11.4 g/dl (12.0-16.0); Mean Corpuscular Hemoglobin 30.2 pg (25.0-34.0); Mean Corpuscular Volume 90.5 fL (80.0-100.0); Platelet Count 182 K/uL (130-400); RDW Standard Deviation 44.1 fL (36.4-46.3); Red Blood Count 3.78 M/uL (4.20-5.40); White Blood Count 7.61 K/ul (4.8-10.8)
--- NOTE | 2025-03-09 06:22 | Electrocardiogram Report ---
Test Reason : Blood Pressure : */* mmHG Vent. Rate : 72 BPM Atrial Rate : 72 BPM P-R Int : 136 ms QRS Dur : 158 ms QT Int : 494 ms P-R-T Axes : -12 155 30 degrees QTcB Int : 540 ms Normal sinus rhythm Right bundle branch block Possible Lateral infarct (cited on or before 01-Sep-2022) Abnormal ECG When compared with ECG of 01-Sep-2022 09:47, Right bundle branch block is now Present Criteria for Inferior infarct are no longer Present Lateral infarct is now Present Confirmed by Dimitri Carbajal ([id number]) on 03/09/2025 6:22:39 AM Referred By: Confirmed By: Dimitri Carbajal
--- NOTE | 2025-03-09 06:26 | Electrocardiogram Report ---
Test Reason : Blood Pressure : */* mmHG Vent. Rate : 84 BPM Atrial Rate : 84 BPM P-R Int : 146 ms QRS Dur : 154 ms QT Int : 436 ms P-R-T Axes : 30 267 5 degrees QTcB Int : 515 ms Sinus rhythm Right bundle branch block Possible Anterolateral infarct (cited on or before 01-Sep-2022) Inferior infarct , age undetermined Abnormal ECG When compared with ECG of 06-Mar-2025 14:54, Questionable change in QRS axis Confirmed by Dimitri Carbajal ([id number]) on 03/09/2025 6:26:05 AM Referred By: REFERRED SELF Confirmed By: Dimitri Carbajal
[2025-03-09 06:55] LABS: Anion Gap 8.0 (3-11); Blood Urea Nitrogen 28.0 mg/dl (6-23); Calcium 8.5 mg/dl (8.6-10.3); Carbon Dioxide 26.0 mmol/L (21-32); Chloride 104.0 mmol/L (98-107); Creatinine Clr Calc Pharmacy 45.1 ml/min; Glucose 140.0 mg/dl (70-99(Fasting)); Magnesium 1.8 mg/dl (1.7-2.4); Potassium 3.5 mmol/L (3.5-5.1); Sodium 138.0 mmol/L (136-145)
[2025-03-09] MEDS: METOPROLOL TARTRATE 25 MG TAB PO ONE (09:28)
--- NOTE | 2025-03-09 10:47 | Nephrology Progress Note ---
Date of Service March 09, 2025 Assessment & Plan (1) ROCÍO (acute kidney injury): Plan: improving Stage 2 nonoliguric ROCÍO prerenal versus ATN from protracted hypotension OP baseline creatinine 0.9 on 10/2024 and one other 2024 draw and no albuminuria on 2024 assay. p/w creatinine 03/06 1.5, up to 1.8 peak 03/07 and plateau'd at 1.7 today. 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 (2) Metabolic acidosis: Plan: resolved AGMA w/ severely elevated lactate on day of admission and resolved now. Admission labs notable for lactate 12 (peaked at > 17 day of admission) and down to 6.2 next day; pH on VBG 7.1 > 7.35 next day (7.36 is wnl). AG on admission 19, peak 21, down to 14 next day. DDX includes (and these are not mutually exclusive) -elevated serum lactate related to IV fluid administration -ischemic bowel potentially in setting of colitis -metformin associated lactic acidosis -sepsis from colitis which was present on admission Not sure how clinically relevant this issue was except importance of avoiding LR for her and using plasmalyte if need arises. difficult to evaluate acid base imbalance meaningfully for her w/o ABG and w/ constant IVF running; that said, VBG pH normalized and suspect that some lactate elevation is from IVF. often w/ metformin associated lactic acidosis lactate will be > 6; this dx can certainly coexist w/ other lactate elevation dxs. no benefit in checking metformin level or ABG at this time per surgery bowels improved and ok to advance diet past clears > on regular diet now (3) Colitis: Plan: on imaging; stool cx + for EAEC; + sick contact >> on regular diet now for first meal midday today (4) Renal lesion: Plan: 2.4 cm L kidney mild hyperdensity; MRI suggested; on CT renal in [facility] system spring 2024 this lesion concerning for RCC >> under active annual surveillance w/ [facility] urology since 2023 >continue urology f/u and annual imaging (5) Adrenal adenoma: Plan: BL low density c/w adenoma; no reason to think metabolically active at this time; OP f/u Admission and Anticipated Discharge Date Admission Date: March 06, 2025 Subjective fell prior to admission and yesterday w/ R pelvic pain > BL hip XR w/o frx. else feeling ok but wants serrano out. no sob, no n/v, no abd pain. eating first "full course meal" today Review of Systems 2 Review of Systems: All systems reviewed & are unremarkable except as noted in Subjective Physical Exam 2 Constitutional: well developed, well nourished, + morbidly obese and + physical limitations (now rolls in bed w/o asst); no acute distress Eyes: EOM intact bilaterally ENMT: Mouth: + dry oral mucous membranes Respiratory: normal respiratory effort Auscultation: + diminished lung sounds Cardiovascular: RRR, no murmur, no edema Gastrointestinal (Abdomen): Inspection/Auscultation: normal bowel sounds P ercussion/Palpation: abdomen soft; abdomen nontender Musculoskeletal: Extremities: strength 5/5 throughout Skin: no rashes, warm and dry Results & Data Vital Signs (Past 12 Hours) Vital Signs Temp Pulse Resp BP Pulse Ox O2 Del Method 03/09/25 08:25 36.3 C L 85 17 141/80 H 96 Room Air 03/09/25 03:05 37.0 C 88 19 128/85 93 Room Air 03/08/25 23:56 37.0 C 93 H 20 120/82 93 Room Air Laboratory Results 03/09/25 05:53 03/09/25 05:53
--- NOTE | 2025-03-09 12:05 | Hospitalist Progress Note ---
Date of Service March 09, 2025 Assessment & Plan (1) Hypotension: Plan 70 year old woman with history of DM2, Hypertension, HLD, insomnia, anxiety, depression, overactive bladder who presented with presyncopal episode Sepsis--POA Enteroaggressive E. coli gastroenteritis/colitis Suspected ischemic colitis Abnormal urinalysis CT ABD:Mild wall thickening of the mid transverse colon to the distal descending colon with mild surrounding fat stranding. Favor ischemic/ inflammatory/infectious colitis over diverticulitis. No pneumatosis, portal venous gas or free air. No abscess. Colonic diverticulosis.Distended gallbladder. 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 Recs noted Paroxysmal atrial fibrillation with RVR Asymptomatic wide-complex tachycardia Tank Vasc 6 Normal TSH ECHO: EF 60 to 65%. Left ventricular diastolic dysfunction is indeterminate. Mild pulmonic valvular regurgitation. Mild mitral regurgitation. Mild tricuspid regurgitation. Currently on IV amiodarone Continue metoprolol titrate 25 mg twice a day Avoid digoxin Monitor and replete electrolytes as needed Cardiology on board Start eliquis 5mg BID as recommended. Monitor Needs outpatient Lexiscan nuclear stress test and polysomnography to rule out sleep apnea Urinary retention Nephro plan to remove serrano today Voiding trial after serrano removal Acute metabolic encephalopathy Likely secondary to above Was severely hypoglycemic on admission as well --CT Head: No acute process Hold sedating medications as able Continue thiamine for now Minimize hypoglycemic episodes Mental status seem to be back to baseline Abnormal CT abdomen: Incidental findings: Nephrolithiasis Left renal lesion Bilateral adrenal nodules --CT abd:Nonobstructing left renal calculi. Largest in the lower pole measures 11 mm. 2.4 cm left renal mildly dense lesion, not adequately characterized. Correlate with priors if available or consider nonemergent MRI. Bilateral low- density adrenal nodules consistent with adenomas. 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 resumed Depression Continue home Zoloft and trazodone DVT Px: Fernando Discussed with CM who is working on placement I spent a total of 55 minutes coordinating, documenting and providing care for this patient excluding time spent in performance of separately billed services Admission and Anticipated Discharge Date Admission Date: March 06, 2025 Subjective Patient seen and examined Currently reports only fatigue Reports one loose BM this AM Denied any new complaints Physical Exam Constitutional: + well hydrated and + obese; no acute di stress Eyes: PERRL, conjunctivae normal, anicteric sclerae ENMT: external ear and nose normal, oropharynx normal Respiratory: normal respiratory effort, lungs clear to auscultation Cardiovascular: Rate/Rhythm: + irregularly irregular Gastrointestinal (Abdomen): normal bowel sounds, soft, nontender, no hepatosplenomegaly Neurologic: PERRL, EOMI, accommodation nl, no face palsy, no dysarthria Psychiatric: A+Ox3, euthymic affect Genitourinary: Serrano in situ Results & Data Results & Data Vital Signs (Past 12 Hours) Vital Signs Temp Pulse Resp BP Pulse Ox O2 Del Method 03/09/25 11:35 36.4 C L 99 H 18 127/84 96 Room Air 03/09/25 08:25 36.3 C L 85 17 141/80 H 96 Room Air 03/09/25 03:05 37.0 C 88 19 128/85 93 Room Air Laboratory Results Abnormal lab results 03/08/25 03/08/25 03/09/25 Range/Units 16:41 20:43 05:53 RBC 3.78 L (4.20-5.40) M/uL Hgb 11.4 L (12.0-16.0) g/dl Hct 34.2 L (37.0-47.0) % BUN 28 H (6-23) mg/dl Creatinine 1.38 H D (0.6-1.2) mg/dl BUN/Creatinine Ratio 20.3 H (10-20) Glucose 140 H (70-99(Fasting)) mg/dl POC Glucose 139 H 150 H (70-99) mg/dl Calcium 8.5 L (8.6-10.3) mg/dl 03/09/25 03/09/25 Range/Units 08:08 11:52 RBC (4.20-5.40) M/uL Hgb (12.0-16.0) g/dl Hct (37.0-47.0) % BUN (6-23) mg/dl Creatinine (0.6-1.2) mg/dl BUN/Creatinine Ratio (10-20) Glucose (70-99(Fasting)) mg/dl POC Glucose 126 H 154 H (70-99) mg/dl Calcium (8.6-10.3) mg/dl
--- NOTE | 2025-03-09 13:12 | Cardiology Progress Note ---
Date of Service March 09, 2025 Assessment & Plan (1) Ischemic colitis: (2) Sepsis: (3) PAF (paroxysmal atrial fibrillation): (4) Wide-complex tachycardia: (5) Ventricular tachycardia: (6) Sleep apnea: Plan Complex 70-year-old female admitted to [facility] on March 06, 2025 with weakness, following near syncopal episode and falls, multiple episodes of diarrhea secondary. Workup revealed E. coli gastroenteritis colitis, suspected ischemic colitis, sepsis with acute kidney injury, anion gap metabolic acidosis/lactic acidosis. Lisinopril, HCTZ, meloxicam, and metformin held. Patient treated empirically with Zosyn and rifaximin. I's/O's positive 14.4 L overall. Patient was noted to have asymptomatic paroxysmal atrial fibrillation with a rapid ventricular response followed by asymptomatic wide-complex tachycardia consistent with ventricular tachycardia. After single dose digoxin patient received IV amiodarone. Beta-ely was started. Resting echocardiography with preserved LV systolic function and only mild valvular disease. IV fluids held with patient administered one dose of IV furosemide (20 mg) for suspected volume overload. [id number] Score 6 points. Patient with longstanding untreated obstructive sleep apnea. New Onset Atrial Fib with RVR Ventricular tachycardia Septic shock - POA Acute Gastroenteritis - POA ROCÍO - POA Ischemic colitis Morbid Obesity CARLOS Metabolic derangements HTN change IV to PO Amiodarone increase metoprolol correct and f/u electrolytes f/u renal function abx as per primary team avoid hypovolemia keep patient euvolemic salt restriction counseling dietary counseling continue telemetry monitoring ischemia w/u once acute medical issues have resolved to baseline Admission and Anticipated Discharge Date Admission Date: March 06, 2025 Subjective Patient on exam is lying in bed in NAD; no c/o cp, sob, palpitations, dizziness, LOC, cough, fever, nausea, vomiting, abdominal pain; patient had one loose BM this AM and 3 yesterday Review of Systems Review of Systems: Complete Review of Systems is as stated above, negative, or noncontributory. Physical Exam Physical Exam: General: A&Ox3. NAD. HENT: Normocephalic. Atraumatic. Eyes: PER. Conjunctiva pink, sclera clear. Neck: Neck veins not appreciated. Heart: Irregular in the 80's. No murmur. No rub. Lungs: decreased BS at bases Abdomen: +BS. Soft. Nontender. No masses or organomegaly. Extremities: Mild edema. No cyanosis Limited neurological examination is without focal deficits. Results & Data Vital Signs (Past 12 Hours) Vital Signs Temp Pulse Resp BP Pulse Ox O2 Del Method 03/09/25 11:35 36.4 C L 99 H 18 127/84 96 Room Air 03/09/25 08:25 36.3 C L 85 17 141/80 H 96 Room Air 03/09/25 03:05 37.0 C 88 19 128/85 93 Room Air Laboratory Results CBC 03/09/25 Range/Units 05:53 WBC 7.61 (4.8-10.8) K/ul RBC 3.78 L (4.20-5.40) M/uL Hgb 11.4 L (12.0-16.0) g/dl Hct 34.2 L (37.0-47.0) % Plt Count 182 (130-400) K/uL Comprehensive Metabolic Panel 03/09/25 Range/Units 05:53 Sodium 138 (136-145) mmol/L Potassium 3.5 (3.5-5.1) mmol/L Chloride 104 (98-107) mmol/L Carbon Dioxide 26 (21-32) mmol/L BUN 28 H (6-23) mg/dl Creatinine 1.38 H D (0.6-1.2) mg/dl Glucose 140 H (70-99(Fasting)) mg/dl Calcium 8.5 L (8.6-10.3) mg/dl Intake and Output 03/08/25 03/09/25 03/09/25 22:59 06:59 14:59 Intake Total 645.072 / 1812.989 550 / 1812.989 301.473 / 301.473 Output Total 701 / 2527 626 / 2527 Balance -55.928 / -714.011 -76 / -714.011 301.473 / 301.473 Intake: IV 175.072 / 492.989 181.473 / 181.473 Amiodarone / D5w 360 mg In 200 175.072 / 175.072 181.473 / 181.473 ml @ 0.5 MG/MIN 16.667 mls/hr IV .Q12H TON Rx#:[id number] Oral 470 / 1320 550 / 1320 120 / 120 Output: Urine Amount (Catheter) 700 / 2525 625 / 2525 Singer/Indwelling 700 / 2525 625 / 2525 # Bowel Movements / 2 Other: Weight 113 kg Weight Measurement Method Built in [facility] Diagnostic Findings 03/08/25 ECHOCARDIOGRAM Interpretation Summary Left ventricular systolic function is normal. Left Ventricular Ejection Fraction = 60-65%. Left ventricular diastolic dysfunction is indeterminate. Mild pulmonic valvular regurgitation. There is mild mitral regurgitation. There is mild tricuspid regurgitation. Medications Administered Home Medications Medication Instructions Recorded Confirmed Last Taken aspirin 81 mg capsule 81 mg PO HS 08/31/22 03/06/25 03/05/25 atorvastatin 40 mg tablet 40 mg PO HS 08/31/22 03/06/25 03/05/25 lisinopril 20 1 tab PO DAILY 08/31/22 03/06/25 03/05/25 mg-hydrochlorothiazide 25 mg tablet meloxicam 15 mg tablet 15 mg PO QAM 08/31/22 03/06/25 03/06/25 metformin 1,000 mg tablet 1,000 mg PO BID 08/31/22 03/06/25 03/06/25 sertraline 100 mg tablet 200 mg PO QAM 08/31/22 03/06/25 03/06/25 trazodone 50 mg tablet 25 mg PO HS 08/31/22 03/06/25 03/05/25 gabapentin 300 mg capsule 300 mg PO TID 03/06/25 03/06/25 03/06/25 glucosamine sulfate 750 mg tablet 750 mg PO DAILY 03/06/25 03/06/25 03/06/25 mirabegron 25 mg tablet,extended 25 mg PO QAM 03/06/25 03/06/25 03/06/25 release 24 hr (Myrbetriq) semaglutide 2 mg/dose (8 mg/3 mL) 2 mg subcut WK 03/06/25 03/06/25 02/27/25 subcutaneous pen injector (Ozempic) Active Medications Generic Name Dose Route Start Last Admin Trade Name Freq PRN Reason Stop Dose Admin Acetaminophen 650 mg 03/06/25 20:47 03/07/25 20:16 Acetaminophen 325 Mg Tab PO 04/05/25 20:46 650 mg Q4H PRN Administration Pain or Fever Dextrose 25 - 50 ml 03/06/25 18:06 03/07/25 00:41 Dextrose 50% 50 Ml Syringe IV 04/05/25 18:05 50 ml UD PRN Administration Hypoglycemia Protocol Protocol Sodium Chloride 1,000 mls @ 250 mls/hr 03/07/25 14:45 03/08/25 04:14 Nss IV 03/10/25 14:44 Not Given .Q4H TON Amiodarone HCl/Dextrose 360 mg in 200 mls @ 16.667 mls/hr 03/08/25 11:15 03/09/25 08:45 Nexterone / D5w IV 04/07/25 11:14 0.5 mg/min .Q12H TON 16.7 mls/hr Administration 0.5 MG/MIN Insulin Aspart 0 units 03/06/25 21:00 03/09/25 12:25 Insulin Aspart Per Unit Charge SC 04/05/25 20:59 Not Given ACHS TON Rifaximin 275 mg 03/07/25 14:00 03/09/25 13:06 Rifaximin 550 Mg Tablet PO 03/09/25 21:01 275 mg TID TON Administration Sertraline HCl 200 mg 03/07/25 09:00 03/09/25 08:35 Sertraline Hcl 100 Mg Tablet PO 04/06/25 08:59 200 mg QAM TON Administration Thiamine HCl 100 mg 03/07/25 14:00 03/09/25 08:36 Thiamine Hcl 100 Mg Tab PO 04/06/25 13:59 100 mg QAM TON Administration Trazodone HCl 25 mg 03/06/25 21:00 03/06/25 21:35 Trazodone Hcl 50 Mg Tab PO 04/05/25 20:59 Not Given HS TON Vibegron 75 mg 03/07/25 09:00 03/09/25 08:35 Vibegron 75 Mg Tab PO 04/06/25 08:59 75 mg DAILY TON Administration PG Care Time/CCT Total # of Minutes Spent Total Time Spent with Patient: Total time spent is greater than 50% in coordination of care (as documented) at patient's floor/unit and/or counseling patient: Coding Level of Care Code 60517 SUB INP/OBS CARE 3/50MIN Diagnoses Ischemic colitis K55.9 Sepsis A41.9 PAF (paroxysmal atrial fibrillation) I48.0 Wide-complex tachycardia R00.0 Ventricular tachycardia I47.20 Sleep apnea G47.30
[2025-03-09] MEDS: AMIODARONE 200 MG TAB PO SCH (16:02)
--- NOTE | 2025-03-09 18:50 | History & Physical Bridge Note ---
Date of Service March 09, 2025 History & Physical Bridge Note I have examined the patient, reviewed the History & Physical and in the interval since the performance of the History & Physical I have noted the following changes of clinical significance: no changes noted Supervising Physician Co-Signing Physician Notes New Onset Atrial Fib with RVR -> CVR Ventricular tachycardia Septic shock -POA - improved Acute Gastroenteritis - POA - improved ROCÍO - POA - improved Ischemic colitis Morbid Obesity CARLOS Metabolic derangements HTN in view of VT, improved renal function, as well as hemodynamics, cardiac cath was dw patient. Patient understands and agrees to proceed will schedule for 03/10/25 NPO post MN hold Fernando
[2025-03-09] MEDS: ATORVASTATIN 40 MG TAB PO SCH (20:37)
[2025-03-09] MEDS: METOPROLOL TARTRATE 50 MG TAB PO SCH (20:37)
[2025-03-09] MEDS ORDERED: APIXABAN 5 MG TABLET PO SCH (21:00)
[2025-03-10 06:05] LABS: Hematocrit (blood only) 31.0 % (37.0-47.0); Hemoglobin 10.2 g/dl (12.0-16.0); Mean Corpuscular Hemoglobin 29.6 pg (25.0-34.0); Mean Corpuscular Volume 89.9 fL (80.0-100.0); Platelet Count 165 K/uL (130-400); RDW Standard Deviation 43.7 fL (36.4-46.3); Red Blood Count 3.45 M/uL (4.20-5.40); White Blood Count 6.76 K/ul (4.8-10.8)
[2025-03-10 06:22] LABS: Anion Gap 7.0 (3-11); Blood Urea Nitrogen 20.0 mg/dl (6-23); Calcium 8.5 mg/dl (8.6-10.3); Carbon Dioxide 26.0 mmol/L (21-32); Chloride 105.0 mmol/L (98-107); Creatinine Clr Calc Pharmacy 59.0 ml/min; Glucose 131.0 mg/dl (70-99(Fasting)); Potassium 3.2 mmol/L (3.5-5.1); Sodium 138.0 mmol/L (136-145)
[2025-03-10] MEDS: POTASSIUM CHLORIDE / WTR 10 MEQ/100 ML PLCT IV SCH (08:24)
--- NOTE | 2025-03-10 11:04 | Hospitalist Progress Note ---
Date of Service March 10, 2025 Assessment & Plan (1) Hypotension: Plan 70 year old woman with history of DM2, Hypertension, HLD, insomnia, anxiety, depression, overactive bladder who presented with presyncopal episode Sepsis--POA Enteroaggressive E. coli gastroenteritis/colitis Suspected ischemic colitis Abnormal urinalysis CT ABD:Mild wall thickening of the mid transverse colon to the distal descending colon with mild surrounding fat stranding. Favor ischemic/ inflammatory/infectious colitis over diverticulitis. No pneumatosis, portal venous gas or free air. No abscess. Colonic diverticulosis.Distended gallbladder. 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 Recs noted IV potassium ordered for hypokalemia Paroxysmal atrial fibrillation with RVR Asymptomatic wide-complex tachycardia Tank Vasc 6 Normal TSH ECHO: EF 60 to 65%. Left ventricular diastolic dysfunction is indeterminate. Mild pulmonic valvular regurgitation. Mild mitral regurgitation. Mild tricuspid regurgitation. Was on IV amio drip initially and then changed to po amio Continue metoprolol titrate, now 50mg BID Avoid digoxin Cardiology on board and planning cardiac cath today Continue eliquis started this admission Urinary retention Off serrano Acute metabolic encephalopathy Likely secondary to above Was severely hypoglycemic on admission as well --CT Head: No acute process Hold sedating medications as able Continue thiamine for now Minimize hypoglycemic episodes Mental status seem to be back to baseline Abnormal CT abdomen: Incidental findings: Nephrolithiasis Left renal lesion Bilateral adrenal nodules --CT abd:Nonobstructing left renal calculi. Largest in the lower pole measures 11 mm. 2.4 cm left renal mildly dense lesion, not adequately characterized. Correlate with priors if available or consider nonemergent MRI. Bilateral low- density adrenal nodules consistent with adenomas. 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 Nonbloody Denied all other complaints on ROS Physical Exam Constitutional: + well hydrated and + obese; no acute di stress Eyes: PERRL, conjunctivae normal, anicteric sclerae ENMT: external ear and nose normal, oropharynx normal Respiratory: normal respiratory effort, lungs clear to auscultation Cardiovascular: Rate/Rhythm: + irregularly irregular Gastrointestinal (Abdomen): normal bowel sounds, soft, nontender, no hepatosplenomegaly Neurologic: PERRL, EOMI, accommodation nl, no face palsy, no dysarthria Psychiatric: A+Ox3, euthymic affect Results & Data Results & Data Vital Signs (Past 12 Hours) Vital Signs Temp Pulse Resp BP Pulse Ox O2 Del Method 03/10/25 07:58 36.5 C 88 18 113/74 97 Room Air 03/10/25 03:59 36.8 C 90 18 120/71 93 Room Air 03/09/25 23:24 37.0 C 68 19 107/77 94 Room Air Laboratory Results Abnormal lab results 03/09/25 03/09/25 03/10/25 Range/Units 16:59 20:30 05:34 RBC 3.45 L (4.20-5.40) M/uL Hgb 10.2 L (12.0-16.0) g/dl Hct 31.0 L (37.0-47.0) % Potassium 3.2 L (3.5-5.1) mmol/L Glucose 131 H (70-99(Fasting)) mg/dl POC Glucose 122 H 118 H (70-99) mg/dl Calcium 8.5 L (8.6-10.3) mg/dl 03/10/25 Range/Units 07:57 RBC (4.20-5.40) M/uL Hgb (12.0-16.0) g/dl Hct (37.0-47.0) % Potassium (3.5-5.1) mmol/L Glucose (70-99(Fasting)) mg/dl POC Glucose 128 H (70-99) mg/dl Calcium (8.6-10.3) mg/dl
--- NOTE | 2025-03-10 11:34 | Nephrology Progress Note ---
Date of Service March 10, 2025 Assessment & Plan (1) ROCÍO (acute kidney injury): Plan: much improved Stage 2 nonoliguric ROCÍO prerenal versus ATN from protracted hypotension OP baseline creatinine 0.9 on 10/2024 and one other 2024 draw and no albuminuria on 2024 assay. p/w creatinine 03/06 1.5, up to 1.8 peak 03/07 and plateau'd at 1.7 now down to 1.0 today. -strict I/O- -back to NPO for cardiac cath >> follow creatinine after cath; will hold lisinopril until we are sure very recent renal recovery holds -hold further lasix unless dypsneic -will need OP neph f/u post d/c particularly with risk of recurrent ROCÍO status postcardiac cath -maintain K 4, mag 2 Care coordinated w/ Dr Kumar via TText re renal status, med changes; we are in agreement. (2) Metabolic acidosis: Plan: resolved AGMA w/ severely elevated lactate on day of admission and resolved now. Admission labs notable for lactate 12 (peaked at > 17 day of admission) and down to 6.2 next day; pH on VBG 7.1 > 7.35 next day (7.36 is wnl). AG on admission 19, peak 21, down to 14 next day. DDX includes (and these are not mutually exclusive) -elevated serum lactate related to IV fluid administration -ischemic bowel potentially in setting of colitis -metformin associated lactic acidosis -sepsis from colitis which was present on admission Not sure how clinically relevant this issue was except importance of avoiding LR for her and using plasmalyte if need arises. difficult to evaluate acid base imbalance meaningfully for her w/o ABG and w/ constant IVF running; that said, VBG pH normalized and suspect that some lactate elevation is from IVF. often w/ metformin associated lactic acidosis lactate will be > 6; this dx can certainly coexist w/ other lactate elevation dxs. no benefit in checking metformin level or ABG at this time per surgery bowels improved and ok to advance diet past clears > on regular diet now (3) Colitis: Plan: on imaging; stool cx + for EAEC; + sick contact >> on regular diet now for first meal midday today (4) Renal lesion: Plan: 2.4 cm L kidney mild hyperdensity; MRI suggested; on CT renal in [facility] system spring 2024 this lesion concerning for RCC >> under active annual surveillance w/ [facility] urology since 2023 >continue urology f/u and annual imaging (5) Adrenal adenoma: Plan: BL low density c/w adenoma; no reason to think metabolically active at this time; OP f/u Admission and Anticipated Discharge Date Admission Date: March 06, 2025 Subjective This afternoon she underwent a cardiac cath which showed moderate coronary artery disease and normal intracardiac pressures. She had a dose of lisinopril this afternoon 20 mg. no sob, no n/v, great appetite, no edema, no voiding concerns Review of Systems 2 Review of Systems: All systems reviewed & are unremarkable except as noted in Subjective Physical Exam 2 Constitutional: well developed, well nourished and + morbidly obese; no acute distress Eyes: EOM intact bilaterally ENMT: Mouth: + dry oral mucous membranes Respiratory: normal respiratory effort Auscultation: + diminished lung sounds Cardiovascular: RRR, no murmur, no edema Gastrointestinal (Abdomen): Inspection/Auscultation: normal bowel sounds P ercussion/Palpation: abdomen soft; abdomen nontender Musculoskeletal: Extremities: strength 5/5 throughout Skin: no rashes, warm and dry Results & Data Vital Signs (Past 12 Hours) Vital Signs Temp Pulse Resp BP Pulse Ox O2 Del Method 03/10/25 07:58 36.5 C 88 18 113/74 97 Room Air 03/10/25 03:59 36.8 C 90 18 120/71 93 Room Air Laboratory Results 03/10/25 05:34 03/10/25 05:34
--- NOTE | 2025-03-10 12:23 | Pre Anesthesia Assessment ---
Date of Service March 10, 2025 Pre Sedation Assessment Vital Signs Temp Pulse Pulse Resp BP BP Pulse Ox 03/10/25 11:45 92 H 18 156/101 H 93 03/10/25 07:58 97.7 F 88 18 113/74 97 03/10/25 03:59 98.2 F 90 18 120/71 93 03/09/25 23:24 98.6 F 68 19 107/77 94 03/09/25 22:03 85 03/09/25 20:00 98.2 F 73 18 103/70 98 03/09/25 16:25 97.9 F 89 18 115/80 96 O2 Del Method 03/10/25 11:45 Room Air 03/10/25 07:58 Room Air 03/10/25 03:59 Room Air 03/09/25 23:24 Room Air 03/09/25 22:03 03/09/25 20:00 Room Air 03/09/25 16:25 Room Air Cardiovascular + irregularly irregular Respiratory + respiratory effort normal Pre-Sedation Airway Assessment Smoking Status: Never smoker Short, Thick Neck: Yes Thyromental Distance: > or= 3.5 Finger Breadths Oral Cavity: + WNL Mallampati Class: II ASA: ASA2 NPO Status Date of Last Intake of Fluids: 03/09/25 Time of Last Intake of Fluids: 00:00 Date of Last Intake of Solid Food: 03/09/25 Time of Last Intake of Solid Foods: 00:00 Procedure Planning Contraindications for Sedation: none Current Medications Reviewed: Yes Notes The planned sedation has been discussed with the patient. Informed Consent was obtained. I have identified the patient, determined the appropriateness of sedation and have assessed the patient immediately prior to the procedure. All medicine(s) and interventions are by my order.
[2025-03-10] MEDS: NITROGLYCERIN/D5W 100MCG/ML 20ML SYR ONE (12:44)
[2025-03-10] MEDS: IODIXANOL (VISIPAQUE) 320 MG/ML 100ML IV ONE (12:45)
[2025-03-10] MEDS: MIDAZOLAM HCL 1 MG/ML 2ML VIAL ONE (12:45)
[2025-03-10] MEDS: HEPARIN (PORCINE) 1000 UNIT/ML 10 ML (CATH LAB USE ONLY) ONE (12:45)
--- NOTE | 2025-03-10 12:47 | Post Anesthesia Assessment ---
Date of Service March 10, 2025 Post Sedation Assessment Vital Signs Temp Pulse Pulse Resp BP BP Pulse Ox 03/10/25 11:45 92 H 18 156/101 H 93 03/10/25 07:58 97.7 F 88 18 113/74 97 03/10/25 03:59 98.2 F 90 18 120/71 93 03/09/25 23:24 98.6 F 68 19 107/77 94 03/09/25 22:03 85 03/09/25 20:00 98.2 F 73 18 103/70 98 03/09/25 16:25 97.9 F 89 18 115/80 96 O2 Del Method 03/10/25 11:45 Room Air 03/10/25 07:58 Room Air 03/10/25 03:59 Room Air 03/09/25 23:24 Room Air 03/09/25 22:03 03/09/25 20:00 Room Air 03/09/25 16:25 Room Air Recovery Score Activity: Moves 4 extremities Respiration: Deep Breath/Cough Circulation: +/-20% PreAnes Value Consciousness: Fully Awake Oxygen Saturation: O2 needed for >90% Discharge Sedation Level of Care: Fast Track Phase II
--- NOTE | 2025-03-10 12:49 | Cardiac Catheterization ---
[facility] Data: [employer] Cardiac Status Clinical evaluation leading to the procedure CAD Presenation: Sx unlikely to be ischemic Diagnostic Physicians Name: Ran Adams MD Closure Device Recommendations: Medical Therapy and/or Counseling Cardiac Cath Procedure Full Procedure Date March 10, 2025 Pre-Procedure Diagnosis Pre-Procedure Diagnosis: Arrhythmia AUC Score AUC Score: 7 Post-Procedure Diagnosis Post-Procedure Diagnosis: Moderate CAD and Normal Intracardiac Pressures Procedure(s) Performed Procedure(s) Performed: Coronary Angiography and Left Heart Cath Slubber Runner Ran Adams MD [employer] Boat Captain(s) Stephen Estimated Blood Loss Estimated Blood Loss: 15 Medication(s) Medication(s): Fentanyl, Heparin, Lidocaine 1%, Nicardipine, Nitroglycerin and Versed Summary of Findings Indication: Ventricular tachycardia, syncope Access: 6 Fr right radial artery Catheters: [place], EBU 3.5 guide Findings: LM -normal caliber, no significant disease LAD -medium caliber, proximal luminal irregularities. Angulated at takeoff of septal/D1 with 50% stenosis. Remainder of vessel without significant disease and tapers prior to apex. Small D1, medium D2 without significant disease. Circumflex -medium caliber, proximal-mid luminal irregularities. Distal vessel tortuous before OM2 without significant disease. RCA -large caliber, 30% proximal to mid stenosis, mid and distal luminal regularities. RPDA and PLB without significant disease. LVEDP - 17 IFR of mid LAD Left main cannulated with EBU 3.0 guide Connor Omniwire normalized navigated across mid LAD stenosis. IFR 0.92. Wire removed and post procedure coronary angiography revealed no apparent complications. Arterial Closure: TR band Summary: 1. Moderate nonobstructive coronary artery disease - Angulated mid LAD with 50% stenosis (negative IFR 0.92). 30% proximal to mid RCA 2. Normal intracardiac filling pressure Recommendations: No acute or high risk CAD to explain patient's presenting symptoms/arrhythmia. Recommend continued ASCVD risk factor modification. Hemodynamics Rest Ao:: 124/79/99 Final Ao: 133/74/97 LV: 120/17 Recommendations Recommendations: Medical Therapy and/or Counseling Radiation Exposure (mGy) 1090 Contrast (mls) 55 Anesthesia Moderate 2470-4180 Procedural Complication(s) None Disposition PCU I attest to the content of the Intraoperative Record and any orders documented therein. Any exceptions are noted below. [facility] Card Cath Procedure Codes Cardiac Catheterization Procedure 1: Cardiovascular Cath Procedures: 26719 Coronaries and LHC (+/-LV) Procedure 2: Cardiovascular Cath Procedures: 74554 (Doppler) Pressure Wire Moderate Sedation Procedure 1: Sedation/Anesthesia: 54231 Mod Sedation by the same physician;Init15 Min Child Age 5 & Up PG Care Time/CCT Total # of Minutes Spent Total Time Spent with Patient: Total time spent is greater than 50% in coordination of care (as documented) at patient's floor/unit and/or counseling patient:
--- NOTE | 2025-03-10 15:59 | Cardiology Progress Note ---
Date of Service March 10, 2025 Assessment & Plan (1) Ischemic colitis: (2) Sepsis: (3) PAF (paroxysmal atrial fibrillation): (4) Wide-complex tachycardia: (5) Ventricular tachycardia: (6) Sleep apnea: Plan Complex 70-year-old female admitted to [facility] on March 06, 2025 with weakness, following near syncopal episode and falls, multiple episodes of diarrhea secondary. Workup revealed E. coli gastroenteritis colitis, suspected ischemic colitis, sepsis with acute kidney injury, anion gap metabolic acidosis/lactic acidosis. Lisinopril, HCTZ, meloxicam, and metformin held. Patient treated empirically with Zosyn and rifaximin. I's/O's positive 14.4 L overall. Patient was noted to have asymptomatic paroxysmal atrial fibrillation with a rapid ventricular response followed by asymptomatic wide-complex tachycardia consistent with ventricular tachycardia. After single dose digoxin patient received IV amiodarone. Beta-ely was started. Resting echocardiography with preserved LV systolic function and only mild valvular disease. IV fluids held with patient administered one dose of IV furosemide (20 mg) for suspected volume overload. [id number] Score 6 points. Patient with longstanding untreated obstructive sleep apnea. New Onset Atrial Fib with RVR -> PAF with CVR Ventricular tachycardia Septic shock - POA Acute Gastroenteritis - POA ROCÍO - POA Ischemic colitis Morbid Obesity CARLOS Metabolic derangements HTN S/P card cath - moderate non-obstructive CAD Amiodarone 400MG po BID X 10 days then 200mg po daily continue metoprolol 50mg po BID restart Eliquis 5 mg po BID start Lisinopril correct and f/u electrolytes f/u renal function abx as per primary team avoid hypovolemia keep patient euvolemic salt restriction counseling dietary counseling stable from cardiac standpoint for discharge in AM if continues to be stable F/U in cardiology office post discharge Admission and Anticipated Discharge Date Admission Date: March 06, 2025 Supervising Physician Co-Signing Physician Notes New Onset Atrial Fib with RVR -> CVR Ventricular tachycardia Septic shock -POA - improved Acute Gastroenteritis - POA - improved ROCÍO - POA - improved Ischemic colitis Morbid Obesity CARLOS Metabolic derangements HTN in view of VT, improved renal function, as well as hemodynamics, cardiac cath w as dw patient. Patient understands and agrees to proceed will schedule for 03/10/25 NPO post MN hold Eliquis Subjective Patient on exam is lying in bed in NAD; no c/o cp, sob, palpitations, dizziness, LOC; s/p card cath - moderate non-obstructive CAD Review of Systems Review of Systems: Complete Review of Systems is as stated above, negative, or noncontributory. Physical Exam Physical Exam: General: A&Ox3. NAD. HENT: Normocephalic. Atraumatic. Eyes: PER. Conjunctiva pink, sclera clear. Neck: Neck veins not appreciated. Heart: Irregular in the 70's Lungs: decreased BS at bases Abdomen: +BS. Soft. Nontender. No masses or organomegaly. Extremities: Mild edema. No cyanosis Limited neurological examination is without focal deficits. Results & Data Vital Signs (Past 12 Hours) Vital Signs Temp Pulse Pulse Resp BP BP Pulse Ox 03/10/25 14:18 61 16 152/98 H 91 03/10/25 14:03 36.7 C 71 18 179/84 H 99 03/10/25 13:48 36.7 C 78 18 186/80 H 100 03/10/25 13:33 36.7 C 71 18 178/94 H 98 03/10/25 13:14 36.6 C 61 18 161/78 H 97 03/10/25 11:45 92 H 18 156/101 H 93 03/10/25 07:58 36.5 C 88 18 113/74 97 03/10/25 03:59 36.8 C 90 18 120/71 93 O2 Del Method O2 Flow Rate 03/10/25 14:18 Room Air 03/10/25 14:03 Room Air 03/10/25 13:48 Nasal Cannula 1 03/10/25 13:33 Room Air 03/10/25 13:14 Room Air 03/10/25 11:45 Room Air 03/10/25 07:58 Room Air 03/10/25 03:59 Room Air Laboratory Results CBC 03/10/25 Range/Units 05:34 WBC 6.76 (4.8-10.8) K/ul RBC 3.45 L (4.20-5.40) M/uL Hgb 10.2 L (12.0-16.0) g/dl Hct 31.0 L (37.0-47.0) % Plt Count 165 (130-400) K/uL Comprehensive Metabolic Panel 03/10/25 Range/Units 05:34 Sodium 138 (136-145) mmol/L Potassium 3.2 L (3.5-5.1) mmol/L Chloride 105 (98-107) mmol/L Carbon Dioxide 26 (21-32) mmol/L BUN 20 (6-23) mg/dl Creatinine 1.04 D (0.6-1.2) mg/dl Glucose 131 H (70-99(Fasting)) mg/dl Calcium 8.5 L (8.6-10.3) mg/dl Intake and Output 03/10/25 03/10/25 03/10/25 06:59 14:59 22:59 Intake Total 400.000 / 400.000 Output Total Balance -.473 400.000 / 400.000 Intake: IV 400.000 / 400.000 Potassium Chloride / Wtr 10 meq 400.000 / 400.000 In 100 ml @ 100 mls/hr IV Q1H TON Rx#:[id number] Output: # Bowel Movements Other: # Unmeasured Voids 1 Weight 110.4 kg Weight Measurement Method Built in [facility] Laboratory Results WBC 6.76 K/ul (4.8-10.8) 03/10/25 05:34 RBC 3.45 M/uL (4.20-5.40) L 03/10/25 05:34 Hgb 10.2 g/dl (12.0-16.0) L 03/10/25 05:34 Hct 31.0 % (37.0-47.0) L 03/10/25 05:34 MCV 89.9 fL (80.0-100.0) 03/10/25 05:34 MCH 29.6 pg (25.0-34.0) 03/10/25 05:34 MCHC 32.9 g/dL (32.0-36.0) 03/10/25 05:34 RDW Std Deviation 43.7 fL (36.4-46.3) 03/10/25 05:34 RDW Coeff of Neyda 13.2 % (11.5-14.5) 03/10/25 05:34 Plt Count 165 K/uL (130-400) 03/10/25 05:34 MPV 11.0 fL (9.4-12.4) 03/10/25 05:34 Immature Gran % (Auto) 0.5 % 03/07/25 02:04 Neut % (Auto) 89.2 % 03/07/25 02:04 Lymph % (Auto) 3.4 % 03/07/25 02:04 [place] % (Auto) 6.7 % 03/07/25 02:04 Eos % (Auto) 0.0 % 03/07/25 02:04 Baso % (Auto) 0.2 % 03/07/25 02:04 Neut # (Auto) 13.60 K/uL (1.40-6.50) H 03/07/25 02:04 Lymph # (Auto) 0.52 K/uL (1.20-3.40) L 03/07/25 02:04 Webster # (Auto) 1.02 K/uL (0.11-0.59) H 03/07/25 02:04 Eos # (Auto) 0.00 K/uL (0.00-0.50) 03/07/25 02:04 Baso # (Auto) 0.03 K/uL (0.00-0.20) 03/07/25 02:04 Immature Gran # (Auto) 0.07 K/uL (0.01-0.20) 03/07/25 02:04 PT 11.0 Seconds (9.0-12.0) 03/06/25 15:04 INR 1.0 (0.9-1.1) 03/06/25 15:04 APTT 26 Seconds (21-31) 03/06/25 15:04 PTT Ratio 1.0 03/06/25 15:04 VBG pH 7.36 (7.36-7.41) 03/08/25 05:21 VBG pCO2 48 mmHg (38-50) 03/08/25 05:21 VBG pO2 31 mmHg 03/08/25 05:21 VBG HCO3 27 mmol/L 03/08/25 05:21 VBG O2 Saturation < 60.0 % 03/08/25 05:21 VBG Base Excess 1.0 mEq/L 03/08/25 05:21 Sodium 138 mmol/L (136-145) 03/10/25 05:34 Potassium 3.2 mmol/L (3.5-5.1) L 03/10/25 05:34 Chloride 105 mmol/L (98-107) 03/10/25 05:34 Carbon Dioxide 26 mmol/L (21-32) 03/10/25 05:34 Anion Gap 7 (3-11) 03/10/25 05:34 BUN 20 mg/dl (6-23) 03/10/25 05:34 Creatinine 1.04 mg/dl (0.6-1.2) D 03/10/25 05:34 Est Cr Clr Drug Dosing 59.0 ml/min 03/10/25 05:34 eGFR 57.82 03/10/25 05:34 BUN/Creatinine Ratio 19.2 (10-20) 03/10/25 05:34 Glucose 131 mg/dl (70-99(Fasting)) H 03/10/25 05:34 POC Glucose 99 mg/dl (70-99) 03/10/25 13:55 Lactate 2.4 mmol/L (0.4-2.0) H* 03/08/25 05:21 Calcium 8.5 mg/dl (8.6-10.3) L 03/10/25 05:34 Phosphorus 2.9 mg/dl (2.5-4.9) 03/08/25 05:21 Magnesium 1.8 mg/dl (1.7-2.4) 03/09/25 05:53 Total Bilirubin 0.6 mg/dl (0.2-1.0) 03/06/25 15:04 Direct Bilirubin 0.2 mg/dl (0-0.2) 03/06/25 15:04 AST 29 U/L (13-39) 03/06/25 15:04 ALT 14 U/L (7-52) 03/06/25 15:04 Alkaline Phosphatase 62 U/L (34-104) 03/06/25 15:04 Ammonia 26.0 umol/L (18-72) 03/08/25 05:21 Total Creatine Kinase 139 U/L (26-192) 03/07/25 20:51 Troponin I High Sens 8.7 pg/ml (0-14) 03/06/25 15:04 Total Protein 6.5 gm/dl (6.0-8.3) 03/06/25 15:04 Albumin 3.8 gm/dl (3.4-5.0) 03/06/25 15:04 Procalcitonin 0.08 ng/ml (0-0.5) 03/06/25 15:04 TSH 0.855 uIu/ml (0.300-4.500) 03/08/25 05:21 Urine Color Boyce 03/07/25 Unknown Urine Appearance Cloudy (Clear) A 03/07/25 Unknown Urine pH 5.0 (4.5-7.5) 03/07/25 Unknown Ur Specific [place] 1.020 (1.000-1.030) 03/07/25 Unknown Urine Protein 1+ (Negative) H 03/07/25 Unknown Urine Glucose (UA) Negative (Negative) 03/07/25 Unknown Urine Ketones Trace (Negative) H 03/07/25 Unknown Urine Blood Negative (Negative) 03/07/25 Unknown Urine Nitrite Positive (Negative) A 03/07/25 Unknown Urine Bilirubin 2+ (Negative) H 03/07/25 Unknown Urine Urobilinogen Negative (Negative) 03/07/25 Unknown Ur Leukocyte Esterase 1+ (Negative) H 03/07/25 Unknown Urine WBC (Auto) 0-5 /hpf (0-5) 03/07/25 Unknown Urine RBC (Auto) 0-2 /hpf (0-2) 03/07/25 Unknown U Hyaline Cast (Auto) 3-5 /lpf (0-2) H 03/07/25 Unknown U Epithel Cells (Auto) 0-2 /hpf (0-2) 03/07/25 Unknown Urine Bacteria (Auto) None Seen (None Seen) 03/07/25 Unknown Urine Comment 03/07/25 Unknown Stl C. cayetanensis PCR Not Detected (NotDetected) 03/06/25 15:07 Stool Rotavirus A PCR Not Detected (NotDetected) 03/06/25 15:07 Stl Adenov F 40/41 PCR Not Detected (NotDetected) 03/06/25 15:07 Stool Astrovirus (PCR) Not Detected (NotDetected) 03/06/25 15:07 Stool Campylobacter PCR Not Detected (NotDetected) 03/06/25 15:07 Stl C. diff Tox B Gene Negative Cdiff Gene (Neg) 03/06/25 15:07 Stl C. diff [id number] NEGATIVE 03/06/25 15:07 Stool Cryptosporidium PCR Not Detected (NotDetected) 03/06/25 15:07 Stl E.coli Shiga Tox PCR Not Detected (NotDetected) 03/06/25 15:07 Stl Enterotoxigenic E PCR Not Detected (NotDetected) 03/06/25 15:07 Stool EPEC (PCR) Not Detected (NotDetected) 03/06/25 15:07 Stool EAEC (PCR) DETECTED (NotDetected) A* 03/06/25 15:07 Stl E. histolytica PCR Not Detected (NotDetected) 03/06/25 15:07 Stool Giardia Lamblia PCR Not Detected (NotDetected) 03/06/25 15:07 Stool Salmonella PCR Not Detected (NotDetected) 03/06/25 15:07 Stool Sapovirus (PCR) Not Detected (NotDetected) 03/06/25 15:07 Stl P. shigelloides PCR Not Detected (NotDetected) 03/06/25 15:07 Stl Shigella/EIEC PCR Not Detected (NotDetected) 03/06/25 15:07 St Y.enterocolitica PCR Not Detected (NotDetected) 03/06/25 15:07 Stool Vibrio (PCR) Not Detected (NotDetected) 03/06/25 15:07 Stl Vibrio cholerae PCR Not Detected (NotDetected) 03/06/25 15:07 Stl Norovirus GI/GII PCR Not Detected (NotDetected) 03/06/25 15:07 SARS-CoV-2 (PCR) NEGATIVE (Negative) 03/06/25 15:07 Influenza Type A (PCR) Negative (Neg) 03/06/25 15:07 Influenza Type B (PCR) Negative (Neg) 03/06/25 15:07 RSV (RT-PCR) Negative (Neg) 03/06/25 15:07 Impressions Abdomen/Pelvis CT 03/06/25 21:20 CR Exam(s): CT ABDOMEN + PELVIS Without Contrast EXAM: CT Abdomen and Pelvis Without Intravenous Contrast CLINICAL HISTORY: Reason for exam: L abd pain. TECHNIQUE: Axial computed tomography images of the abdomen and pelvis without intravenous contrast. CTDI is 28.14 mGy and DLP is 1316.89 mGy-cm. Automated exposure control was utilized for the study. A dose lowering technique was utilized adhering to the principles of ALARA. COMPARISON: No relevant prior studies available. FINDINGS: Lung bases: Bibasilar atelectasis/scarring. ABDOMEN: Liver: Unremarkable. Gallbladder and bile ducts: Distended gallbladder. No calcified stones. No ductal dilation. Pancreas: Atrophic pancreas. No ductal dilation. Spleen: Unremarkable. No splenomegaly. Adrenals: Bilateral low-density adrenal nodules consistent with adenomas. Kidneys and ureters: Nonobstructing left renal calculi. Largest in the lower pole measures 11 mm. 2.4 cm left renal mildly dense lesion, not adequately characterized. No hydronephrosis or obstructing calculus. Stomach and bowel: Mild wall thickening of the mid transverse colon to the distal descending colon with mild surrounding fat stranding. Colonic diverticulosis. Stomach is moderately distended with fluid and heterogeneous contents. No bowel obstruction. PELVIS: Appendix: Normal appendix. Bladder: Unremarkable. No stones. Reproductive: Unremarkable as visualized. ABDOMEN and PELVIS: Intraperitoneal space: Unremarkable. No free air. No significant fluid collection. Bones/joints: Degenerative changes of the spine. No acute fracture. No dislocation. Soft tissues: Lobular fat containing ventral hernia. Vasculature: Unremarkable. No abdominal aortic aneurysm. Lymph nodes: Unremarkable. No enlarged lymph nodes. IMPRESSION: 1. Mild wall thickening of the mid transverse colon to the distal descending colon with mild surrounding fat stranding. Favor ischemic/inflammatory/infectious colitis over diverticulitis. No pneumatosis, portal venous gas or free air. No abscess. 2. Colonic diverticulosis. 3. Distended gallbladder. 4. Nonobstructing left renal calculi. Largest in the lower pole measures 11 mm. 5. 2.4 cm left renal mildly dense lesion, not adequately characterized. Correlate with priors if available or consider nonemergent MRI. 6. Bilateral low-density adrenal nodules consistent with adenomas. Communications: Verify Receipt Electronically signed by: Greg Castaneda M.D. 03/07/25 02:[address] 03/07/25 13:16 CT SCAN OF THE BRAIN WITHOUT IV CONTRAST CLINICAL HISTORY: Change in mental status. COMPARISON STUDY: No priors. TECHNIQUE: Unenhanced axial CT scan of the brain is performed from the vertex to the skull base. Images are reviewed in the axial, sagittal, coronal planes. A dose lowering technique was utilized adhering to the principles of ALARA. The patient was scanned twice due to motion artifact. CT DOSE: 2199.31 mGy.cm FINDINGS: Brain parenchyma: There is age-related involutional change noting mild subcortical and periventricular microangiopathic disease. There is no hemorrhage, mass effect, or evidence of acute territorial ischemia by CT criteria. Barahona-white matter differentiation is preserved. No extra-axial fluid collection is seen. Ventricles, sulci, cisterns: Prominent secondary to involutional change. Intracranial vasculature: There is atherosclerotic calcification of the cavernous carotid arteries. Calvarium: Unremarkable. Sinuses and mastoids: The paranasal sinuses are clear. The mastoid air cells are well pneumatized. Orbits: The bony orbits are grossly intact. There is a right ocular lens implant. IMPRESSION: There is no hemorrhage, mass effect, or evidence of acute territorial ischemia by CT criteria noting a motion degraded examination. ACT 112: Negative or not required by law. Electronically signed by: Olman Magaña M.D. 03/07/2025 2:16 PM Chest X-Ray 03/08/25 03:39 EXAM: XR chest 1V portable CLINICAL HISTORY: SOB. TECHNIQUE: An X-ray image of the chest is obtained in AP projection. COMPARISON: Comparison is made with the prior examination dated 03/06/2025. FINDINGS: Pulmonary Parenchyma: Lungs are clear bilaterally. No evidence of consolidation, collapse, or focal opacities. No pulmonary nodules are identified. There are prominent pulmonary interstitial markings. No evidence of pleural effusion or pleural thickening. Heart and Mediastinum: Heart size and shape are normal. There are prominent bilateral hilar shadows likely due to vascular enlargement. No mediastinal widening or masses. No hilar or mediastinal lymphadenopathy. Bony Thorax: Bony thorax appears intact without fractures or deformities. Left shoulder implant is noted. Soft Tissues: Soft tissues overlying the chest wall are unremarkable. IMPRESSION: 1. Findings suggestive of mild vascular congestion. 2. No apparent interval changes. Electronically signed by Jose Antonio Guerra 03-08-2025 05:06 AM Hip/Pelvis X-Ray 03/08/25 13:14 XR hip RUTH 2v w pelvis HISTORY: 70 years-old Female Hip Pain, recent Fall acute bilateral hip pain status post fall COMPARISON: CT abdomen and pelvis 03/06/2025 TECHNIQUE: AP view of the pelvis with 2 views of the hips bilaterally FINDINGS: Mild osteoarthritis of the hips. Demineralized appearance of the bones. Lumbar levoscoliosis with moderate to severe degenerative changes. No acute fracture or dislocation identified. IMPRESSION: No acute fracture or dislocation. ACT 112: Negative or not required by law. The above report was generated using voice recognition software. It may contain grammatical, syntax or spelling errors. Electronically signed by: En Joya M.D. 03/08/2025 3:08 PM Diagnostic Findings 03/08/25 ECHOCARDIOGRAM Interpretation Summary Left ventricular systolic function is normal. Left Ventricular Ejection Fraction = 60-65%. Left ventricular diastolic dysfunction is indeterminate. Mild pulmonic valvular regurgitation. There is mild mitral regurgitation. There is mild tricuspid regurgitation. Medications Administered Home Medications Medication Instructions Recorded Confirmed Last Taken aspirin 81 mg capsule 81 mg PO HS 08/31/22 03/06/25 03/05/25 atorvastatin 40 mg tablet 40 mg PO HS 08/31/22 03/06/25 03/05/25 lisinopril 20 1 tab PO DAILY 08/31/22 03/06/25 03/05/25 mg-hydrochlorothiazide 25 mg tablet meloxicam 15 mg tablet 15 mg PO QAM 08/31/22 03/06/25 03/06/25 metformin 1,000 mg tablet 1,000 mg PO BID 08/31/22 03/06/25 03/06/25 sertraline 100 mg tablet 200 mg PO QAM 08/31/22 03/06/25 03/06/25 trazodone 50 mg tablet 25 mg PO HS 08/31/22 03/06/25 03/05/25 gabapentin 300 mg capsule 300 mg PO TID 03/06/25 03/06/25 03/06/25 glucosamine sulfate 750 mg tablet 750 mg PO DAILY 03/06/25 03/06/25 03/06/25 mirabegron 25 mg tablet,extended 25 mg PO QAM 03/06/25 03/06/25 03/06/25 release 24 hr (Myrbetriq) semaglutide 2 mg/dose (8 mg/3 mL) 2 mg subcut WK 03/06/25 03/06/25 02/27/25 subcutaneous pen injector (Ozempic) Active Medications Generic Name Dose Route Start Last Admin Trade Name Freq PRN Reason Stop Dose Admin Acetaminophen 650 mg 03/06/25 20:47 03/07/25 20:16 Acetaminophen 325 Mg Tab PO 04/05/25 20:46 650 mg Q4H PRN Administration Pain or Fever Amiodarone HCl 400 mg 03/09/25 17:00 03/10/25 08:24 Amiodarone 200 Mg Tab PO 04/08/25 16:59 400 mg BIDM TON Administration Atorvastatin Calcium 40 mg 03/09/25 21:00 03/09/25 20:37 Atorvastatin 40 Mg Tab PO 04/08/25 20:59 40 mg HS TON Administration Dextrose 25 - 50 ml 03/06/25 18:06 03/07/25 00:41 Dextrose 50% 50 Ml Syringe IV 04/05/25 18:05 50 ml UD PRN Administration Hypoglycemia Protocol Protocol Insulin Aspart 0 units 03/06/25 21:00 03/10/25 13:59 Insulin Aspart Per Unit Charge SC 04/05/25 20:59 Not Given ACHS TON Metoprolol Tartrate 50 mg 03/09/25 21:00 03/10/25 08:25 Metoprolol Tartrate 50 Mg Tab PO 04/08/25 20:59 50 mg BID TON Administration Sertraline HCl 200 mg 03/07/25 09:00 03/10/25 08:25 Sertraline Hcl 100 Mg Tablet PO 04/06/25 08:59 200 mg QAM TON Administration Thiamine HCl 100 mg 03/07/25 14:00 03/10/25 08:25 Thiamine Hcl 100 Mg Tab PO 04/06/25 13:59 100 mg QAM TON Administration Trazodone HCl 25 mg 03/06/25 21:00 03/06/25 21:35 Trazodone Hcl 50 Mg Tab PO 04/05/25 20:59 Not Given HS TON Vibegron 75 mg 03/07/25 09:00 03/10/25 08:25 Vibegron 75 Mg Tab PO 04/06/25 08:59 75 mg DAILY TON Administration PG Care Time/CCT Total # of Minutes Spent Total Time Spent with Patient: Total time spent is greater than 50% in coordination of care (as documented) at patient's floor/unit and/or counseling patient: Coding Level of Care Code 45281 SUB INP/OBS CARE 3/50MIN Diagnoses Ischemic colitis K55.9 Sepsis A41.9 PAF (paroxysmal atrial fibrillation) I48.0 Wide-complex tachycardia R00.0 Ventricular tachycardia I47.20 Sleep apnea G47.30
--- NOTE | 2025-03-10 17:43 | Electrocardiogram Report ---
Test Reason : Blood Pressure : */* mmHG Vent. Rate : 121 BPM Atrial Rate : * BPM P-R Int : * ms QRS Dur : 162 ms QT Int : 390 ms P-R-T Axes : * -85 2 degrees QTcB Int : 553 ms Atrial fibrillation with rapid ventricular response Left axis deviation Right bundle branch block Possible Anterolateral infarct Abnormal ECG When compared with ECG of 07-Mar-2025 17:43, Atrial fibrillation has replaced Sinus rhythm Confirmed by Dimitri Carbajal ([id number]) on 03/10/2025 5:42:59 PM Referred By: REFERRED SELF Confirmed By: Dimitri Carbajal
--- NOTE | 2025-03-10 17:43 | Electrocardiogram Report ---
Test Reason : Blood Pressure : */* mmHG Vent. Rate : 84 BPM Atrial Rate : 84 BPM P-R Int : 140 ms QRS Dur : 158 ms QT Int : 428 ms P-R-T Axes : 35 -88 -14 degrees QTcB Int : 505 ms Sinus rhythm with Premature supraventricular complexes Left axis deviation Right bundle branch block Possible Anterolateral infarct Abnormal ECG When compared with ECG of 07-Mar-2025 02:58, Premature supraventricular complexes are now Present Confirmed by Dimitri Carbajal ([id number]) on 03/10/2025 5:42:29 PM Referred By: REFERRED SELF Confirmed By: Dimitri Carbajal
--- NOTE | 2025-03-10 18:04 | Electrocardiogram Report ---
Test Reason : Blood Pressure : */* mmHG Vent. Rate : 184 BPM Atrial Rate : 20 BPM P-R Int : * ms QRS Dur : 174 ms QT Int : 290 ms P-R-T Axes : * 142 -73 degrees QTcB Int : 507 ms Ventricular tachycardia Atrial fibrillation Right bundle branch block Abnormal ECG When compared with ECG of 07-Mar-2025 20:02, Ventricular tachycardia is now present Confirmed by Dimitri Carbajal ([id number]) on 03/10/2025 6:03:43 PM Referred By: REFERRED SELF Confirmed By: Dimitri Carbajal
--- NOTE | 2025-03-10 18:08 | Electrocardiogram Report ---
Test Reason : Blood Pressure : */* mmHG Vent. Rate : 126 BPM Atrial Rate : 28 BPM P-R Int : * ms QRS Dur : 150 ms QT Int : 358 ms P-R-T Axes : * 268 26 degrees QTcB Int : 518 ms Atrial fibrillation with rapid ventricular response with premature ventricular or aberrantly conducte d complexes Right bundle branch block Possible Anterolateral infarct Abnormal ECG When compared with ECG of 08-Mar-2025 05:06, Ventricular tachycardia is no longer Present Confirmed by Dimitri Carbajal ([id number]) on 03/10/2025 6:07:54 PM Referred By: REFERRED SELF Confirmed By: Dimitri Carbajal
--- NOTE | 2025-03-10 18:10 | Electrocardiogram Report ---
Test Reason : Blood Pressure : */* mmHG Vent. Rate : 183 BPM Atrial Rate : 197 BPM P-R Int : * ms QRS Dur : 176 ms QT Int : 290 ms P-R-T Axes : * 96 151 degrees QTcB Int : 506 ms Ventricular tachycardia Rightward axis Right bundle branch block with non VT complexes Abnormal ECG When compared with ECG of 08-Mar-2025 05:08, Ventricular tachycardia is now Present Confirmed by Dimitri Carabjal ([id number]) on 03/10/2025 6:10:04 PM Referred By: REFERRED SELF Confirmed By: Dimitri Carbajal
--- NOTE | 2025-03-10 18:11 | Electrocardiogram Report ---
Test Reason : Blood Pressure : */* mmHG Vent. Rate : 122 BPM Atrial Rate : 40 BPM P-R Int : * ms QRS Dur : 148 ms QT Int : 344 ms P-R-T Axes : * 262 22 degrees QTcB Int : 490 ms Atrial fibrillation with rapid ventricular response with premature ventricular or aberrantly conducte d complexes Right bundle branch block Abnormal ECG When compared with ECG of 08-Mar-2025 05:10, Ventricular tachycardia is no longer Present Confirmed by Dimitri Carbajal ([id number]) on 03/10/2025 6:10:38 PM Referred By: REFERRED SELF Confirmed By: Dimitri Carbajal
[2025-03-10] MEDS: APIXABAN 5 MG TABLET PO SCH (20:29)
[2025-03-11 06:39] LABS: Hematocrit (blood only) 31.5 % (37.0-47.0); Hemoglobin 10.1 g/dl (12.0-16.0); Mean Corpuscular Hemoglobin 29.2 pg (25.0-34.0); Mean Corpuscular Volume 91.0 fL (80.0-100.0); Platelet Count 162 K/uL (130-400); RDW Standard Deviation 44.0 fL (36.4-46.3); Red Blood Count 3.46 M/uL (4.20-5.40); White Blood Count 4.24 K/ul (4.8-10.8)
[2025-03-11 06:59] LABS: Anion Gap 8.0 (3-11); Blood Urea Nitrogen 13.0 mg/dl (6-23); Calcium 8.7 mg/dl (8.6-10.3); Carbon Dioxide 26.0 mmol/L (21-32); Chloride 105.0 mmol/L (98-107); Creatinine Clr Calc Pharmacy 73.0 ml/min; Glucose 124.0 mg/dl (70-99(Fasting)); Magnesium 1.6 mg/dl (1.7-2.4); Potassium 3.6 mmol/L (3.5-5.1); Sodium 139.0 mmol/L (136-145)
[2025-03-11 08:10] VITALS: RESP 18; TEMP 98.6; O2SAT 97
[2025-03-11] MEDS: MAGNESIUM OXIDE 400 MG TAB PO ONE (08:10)
[2025-03-11 11:44] VITALS: BP 113/74; PULSE 92
[2025-03-11] MEDS: METOPROLOL TARTRATE 25 MG TAB PO STA (12:28)
--- NOTE | 2025-03-11 12:40 | Discharge Summary ---
Date of Service March 11, 2025 Admission HPI Per Admitting Provider Ms Aparicio is a pleasant 70F with PMH DMII, HTN, HLD, Insomnia, anxiety, Depression, overactive bladder who presented to ED today for syncopal episode. She was in her usual state of health this AM. she was out eating breakfast around 0900. Around 1100, she then felt nauseated and had multiple episodes non bloody emesis. Numerous watery episodes of diarrhea proceeded. She then had a near-syncopal episode. According to , she was lethargic and poorly responsive but did not lose consciousness. Denies history of same. Denies sick contacts but did endorse large foul smelling loose bowel movement a few hours ago ED Vitals 79/58 -->136/64 following 2L NS boluses Labs significant for leukocytosis, combined AGMA and resp acidosis with pH 7.09, Cr 1.5, normal baseline and lactate of 12 Admission Exam Per Admitting Provider General: Well appearing, NAD HEENT: EOMI, PERRLA Neck: Supple Cardiac: RRR no rubs gallops or murmurs Lungs: CTA no rhonchi wheezing or rales Abd: S NT ND BS positive MSK: Full ROM. No obvious deformities Ext: No Edema cyanosis Skin: Warm, Dry Neuro: AOx3 No focal deficits. Psych: Normal Mood Principal Diagnosis Sepsis Enteroaggressive E. coli colitis Atrial fibrillation Acute kidney injury Discharge Exam Constitutional + well hydrated and + obese; no acute distress Eyes PERRL, conjunctivae normal, anicteric sclerae ENMT external ear and nose normal, oropharynx normal Respiratory normal respiratory effort, lungs clear to auscultation Cardiovascular Rate/Rhythm: + irregularly irregular Gastrointestinal (Abdomen) normal bowel sounds, soft, nontender, no hepatosplenomegaly Neurologic PERRL, EOMI, accommodation nl, no face palsy, no dysarthria Psychiatric A+Ox3, euthymic affect Discharge Data Allergies Allergy/AdvReac Type Severity Reaction Status Date / Time No Known Allergies Allergy Unverified 03/06/25 16:00 Consultations 03/06/25 16:27 ED Decision to Admit Stat 03/07/25 04:28 Consult General Surgery Routine 03/07/25 08:37 Consult Nephrology Routine 03/07/25 20:44 Consult Cardiology Routine 03/09/25 18:50 Consult Cardiac Catheterization Routine Procedures Performed Operation Date: 03/10/25 13:00 Actual Procedures p Cineradiography w/Routine Exam - Ran Adams MD p Cath, Left with Cors and Vent - Ran Adams MD Ordered Studies 03/06/25 21:20 CT Abd and Pelvis [CT abd pelvis wo con] Stat 03/07/25 13:16 CT head/brain wo con Urgent 03/10/25 12:12 CL Cath Imgs for PACS use only Routine Hospital Course (1) Hypotension: Plan 70 year old woman with history of DM2, Hypertension, HLD, insomnia, anxiety, depression, overactive bladder who presented with presyncopal episode Sepsis--POA Enteroaggressive E. coli gastroenteritis/colitis Suspected ischemic colitis Abnormal urinalysis On presentation, Lab was notable for leukocytosis, combined AGMA and resp acidosis, lactic acidosis of 12, Cr of 1.5 CT ABD:Mild wall thickening of the mid transverse colon to the distal descending colon with mild surrounding fat stranding. Favor ische kandi/inflammatory/infectious colitis over diverticulitis. No pneumatosis, portal venous gas or free air. No abscess. Colonic diverticulosis.Distended gallbladder. Stool positive for EAEC Blood Cultures: Negative to date Urine culture negative Received IV fluids with resolution of hypotension Completed rifaximin while inpatient Lactic acidosis trended down from peak of >17 to 2.4 Leukocytosis resolved Acute kidney injury Likely multifactorial prerenal/ATN Anion gap metabolic acidosis/lactic acidosis Cr was 1.5 on admission, peaked at 1.81, improved to 0.84 today [employer] meloxicam stopped while inpatient Her [employer] lisinopril-HCTZ was discontinued and changed to Lisinopril 20mg daily to start on 03/14/25 as patient got contrast with cath yesterday PCP to check BMP on follow uup Paroxysmal atrial fibrillation with RVR Asymptomatic wide-complex tachycardia Tank Vasc 6 Normal TSH ECHO: EF 60 to 65%. Left ventricular diastolic dysfunction is indeterminate. Mild pulmonic valvular regurgitation. Mild mitral regurgitation. Mild tricuspid regurgitation. Was on IV amio drip initially and then changed to po amio Discharged on Amiodarone 400mg BID till 03/18/25 and then 200mg daily Started on metoprolol 75mg BID Started on eliquis for stroke prophylaxis. [employer] Aspirin stopped Had Cardiac catheterization on 03/10/25 which showed moderate nonobstructive CAD (angulated mid LAD with 50% stenosis, 30% proximal to mid RCA) Acute metabolic encephalopathy Likely secondary to sepsis Was severely hypoglycemic on admission as well CT Head: No acute process Mental status seem to be back to baseline Abnormal CT abdomen: Incidental findings: Nephrolithiasis Left renal lesion Bilateral adrenal nodules --CT abd:Nonobstructing left renal calculi. Largest in the lower pole measures 11 mm. 2.4 cm left renal mildly dense lesion, not adequately characterized. Correlate with priors if available or consider nonemergent MRI. Bilateral low- density adrenal nodules consistent with adenomas. --Will need further evaluation as outpatient Patient made aware of findings and need for further eval outpatient by PCP DM II Hypoglycemic episodes Based on glycemic trends and barely requiring any insulin while hospitalized, all antidiabetics were discontinued on discharge Patient advised to continue to monitor blood glucose at home and keep a home glucose log for PCP PCP to follow up and make adjustments as needed HTN Lisinopril - HCTZ discontinued Started on lisinopril 20mg daily to start on 03/14/25 Urinary retention - resolved Patient was evaluated by PT/OT and rehab was recommended Patient initially agreed to go to rehab but changed her mind today despite counseling Updated patient and at bedside about medication changes and recommendations Total Time Total Time Spent Total Time Spent (In Minutes): 60 Total Time Includes: Examination of the Patient, Discharge Planning, Medication Reconciliation and Communication With Other Providers Discharge Plan Discharge Items Patient Disposition: Home - Self-Care Reason For Visit: Nausea, diarrhea Discharge Diagnosis: Sepsis Enteroaggressive E. coli colitis Atrial fibrillation Acute kidney inury Condition on Discharge: Fair Activity: Resume your previous activity Non-emergency contact: Primary Care Provider and Early Childhood Education Instructor Call non-emergency contact if: you have any medication questions and your symptoms worsen Follow-up/Referrals: Armida Fernandes DO [Primary Care Provider] - (Dr. Fernandes's office will call you for an appointment.) Diet: Carb Consistent or DM2 and Heart Healthy Addtl Attending Provider Instructions: Mrs Aparicio You were hospitalized and managed for the above listed diagnoses. Based on your functional status, rehab was recommended. However, You declined rehab and preferred to go home. Your Aspirin was stopped and you were started on blood thinner called eliquis (or apixaban) to reduce risk of stroke. Please stop taking meloxicam or other NSAIDS (such as ibuprofen, naproxen, advil etc) while on eliquis to reduce risk of bleeding. You were started on amiodarone 400mg twice a day until 03/18/25, then 200mg daily from 03/19/25 for your Atrial fibrillation You were also started on metoprolol for better heart rate control Your lisinopril-HCTZ was changed to lisinopril only. Please start the lisinopril on Friday03/14/25. Please do not start it before then Your metformin and ozempic were stopped for now due to low blood glucose. Please monitor daily blood glucose as we discussed and your Primary Doctor may resume or make adjustments as needed. Please ensure follow up with your Doctors as we discussed Your Primary Doctor should check lab Basic Metabolic Panel on follow up. Pending Studies at Discharge: No Stand-Alone Forms: My [facility] [employer], Smoking Cessation Medications and DC Order Prescriptions: New Eliquis 5 mg Tablet 5 mg PO BID Qty: 60 0RF amiodarone 200 mg Tablet See Rx Instructions .ROUTE .COMPLEX Qty: 60 0RF Rx Instructions: 400mg twice a day until mar 18, then 200mg daily afterwards lisinopril 20 mg Tablet 20 mg PO QAM Qty: 30 0RF metoprolol tartrate 50 mg Tablet 75 mg PO BID Qty: 90 0RF Continued atorvastatin 40 mg tablet 40 mg PO HS Qty: 30 0RF trazodone 50 mg tablet 25 mg PO HS Qty: 30 0RF sertraline 100 mg tablet 200 mg PO QAM Qty: 30 0RF gabapentin 300 mg capsule 300 mg PO TID Qty: 90 0RF glucosamine sulfate 750 mg Tablet 750 mg PO DAILY Qty: 30 0RF Rx Instructions: administer with a meal mirabegron [Myrbetriq] 25 mg tablet extended release 24 hr 25 mg PO QAM Qty: 30 0RF Discontinued meloxicam 15 mg tablet 15 mg PO QAM metformin 1,000 mg tablet 1,000 mg PO BID lisinopril-hydrochlorothiazide 20-25 mg tablet 1 tab PO DAILY aspirin 81 mg Capsule 81 mg PO HS Ozempic 2 mg/dose (8 mg/3 mL) pen injector 2 mg SUBCUT WK Rx Instructions: Sun Discharge Orders: Discharge Order (Routine); Ordered 03/11/25 Ordered By: Roxane Kumar Admission Data Admit Date/Time: 03/06/25 17:16 Attending Provider: Roxane Kumar I. Admit Provider: Rusty Caldwell Primary Care Provider: Armida Fernandes Other Providers: Rusty Caldwell; Bubba Parker; Belen Logan; Valerie Mcneal; Kris Coto; Shay Simon; Eric De Dios; Zay Garner; Eliu Awad; Chayito Bentley; Nargis Mercado; Magdalena Weeks; Brittany Oneill; Valerie Peterson; Onur Toro; Mika Davis; Deidra Blanton; Ghazala Patrick; Alissa Lewis; Mahsa Son; Gary Smith; Jami Wesley; Sury Celaya; Ran Smith; Steve Bernal; Isidro Banks; Milly Adams; [place],[facility] Other Interventions: Discharge Summary Assessment (RN) Last Done: 03/11/25 11:43
--- NOTE | 2025-03-11 14:03 | Cardiology Progress Note ---
Date of Service March 11, 2025 Assessment & Plan (1) Ischemic colitis: (2) Sepsis: (3) PAF (paroxysmal atrial fibrillation): (4) Wide-complex tachycardia: (5) Ventricular tachycardia: (6) Sleep apnea: Plan Complex 70-year-old female admitted to [facility] on March 06, 2025 with weakness, following near syncopal episode and falls, multiple episodes of diarrhea secondary. Workup revealed E. coli gastroenteritis colitis, suspected ischemic colitis, sepsis with acute kidney injury, anion gap metabolic acidosis/lactic acidosis. Lisinopril, HCTZ, meloxicam, and metformin held. Patient treated empirically with Zosyn and rifaximin. I's/O's positive 14.4 L overall. Patient was noted to have asymptomatic paroxysmal atrial fibrillation with a rapid ventricular response followed by asymptomatic wide-complex tachycardia consistent with ventricular tachycardia. After single dose digoxin patient received IV amiodarone. Beta-ely was started. Resting echocardiography with preserved LV systolic function and only mild valvular disease. IV fluids held with patient administered one dose of IV furosemide (20 mg) for suspected volume overload. [id number] Score 6 points. Patient with longstanding untreated obstructive sleep apnea. New Onset Atrial Fib with RVR -> PAF with CVR Ventricular tachycardia Septic shock - POA Acute Gastroenteritis - POA ROCÍO - POA Ischemic colitis Morbid Obesity CARLOS Metabolic derangements HTN S/P card cath - moderate non-obstructive CAD Amiodarone 400MG po BID X 10 days then 200mg po daily metoprolol 75 mg po BID Eliquis 5 mg po BID Lisinopril salt restriction dietary counseling stable from cardiac standpoint for discharge F/U in cardiology office post discharge Admission and Anticipated Discharge Date Admission Date: March 06, 2025 Supervising Physician Co-Signing Physician Notes New Onset Atrial Fib with RVR -> CVR Ventricular tachycardia Septic shock -POA - improved Acute Gastroenteritis - POA - improved ROCÍO - POA - improved Ischemic colitis Morbid Obesity CARLOS Metabolic derangements HTN in view of VT, improved renal function, as well as hemodynamics, cardiac cath was dw patient. Patient understands and agrees to proceed will schedule for 03/10/25 NPO post MN hold Eliquis Subjective Patient on exam is sitting in chair in NAD; no c/o cp, sob, palpitations, dizziness, LOC; ambulatory with no symptoms Review of Systems Review of Systems: Complete Review of Systems is as stated above, negative, or noncontributory. Physical Exam Physical Exam: General: A&Ox3. NAD. HENT: Normocephalic. Atraumatic. Eyes: PER. Conjunctiva pink, sclera clear. Neck: Neck veins not appreciated. Heart: S1 S2, soft sys murmur Lungs: decreased BS at bases Abdomen: +BS. Soft. Nontender. No masses or organomegaly. Extremities: no edema. No cyanosis Limited neurological examination is without focal deficits. Results & Data Vital Signs (Past 12 Hours) Vital Signs Temp Pulse Pulse Resp BP BP Pulse Ox 03/11/25 11:43 37.0 C 92 H 76 18 149/110 H 113/74 97 03/11/25 11:18 03/11/25 08:09 37.0 C 76 18 149/110 H 97 03/11/25 03:36 36.6 C 89 16 129/89 95 O2 Del Method 03/11/25 11:43 03/11/25 11:18 Room Air 03/11/25 08:09 Room Air 03/11/25 03:36 Room Air Laboratory Results CBC 03/11/25 Range/Units 05:34 WBC 4.24 L (4.8-10.8) K/ul RBC 3.46 L (4.20-5.40) M/uL Hgb 10.1 L (12.0-16.0) g/dl Hct 31.5 L (37.0-47.0) % Plt Count 162 (130-400) K/uL Comprehensive Metabolic Panel 03/11/25 Range/Units 05:34 Sodium 139 (136-145) mmol/L Potassium 3.6 (3.5-5.1) mmol/L Chloride 105 (98-107) mmol/L Carbon Dioxide 26 (21-32) mmol/L BUN 13 (6-23) mg/dl Creatinine 0.84 (0.6-1.2) mg/dl Glucose 124 H (70-99(Fasting)) mg/dl Calcium 8.7 (8.6-10.3) mg/dl Intake and Output 03/10/25 03/11/25 03/11/25 22:59 06:59 14:59 Other: # Unmeasured Voids 1 1 Weight 110.4 kg 110.4 kg Weight Measurement Method Built in [facility] Patient Weight 03/12/25 06:59 Weight 110.4 kg Diagnostic Findings Laboratory Results WBC 4.24 K/ul (4.8-10.8) L 03/11/25 05:34 RBC 3.46 M/uL (4.20-5.40) L 03/11/25 05:34 Hgb 10.1 g/dl (12.0-16.0) L 03/11/25 05:34 Hct 31.5 % (37.0-47.0) L 03/11/25 05:34 MCV 91.0 fL (80.0-100.0) 03/11/25 05:34 MCH 29.2 pg (25.0-34.0) 03/11/25 05:34 MCHC 32.1 g/dL (32.0-36.0) 03/11/25 05:34 RDW Std Deviation 44.0 fL (36.4-46.3) 03/11/25 05:34 RDW Coeff of Neyda 13.3 % (11.5-14.5) 03/11/25 05:34 Plt Count 162 K/uL (130-400) 03/11/25 05:34 MPV 11.0 fL (9.4-12.4) 03/11/25 05:34 Immature Gran % (Auto) 0.5 % 03/07/25 02:04 Neut % (Auto) 89.2 % 03/07/25 02:04 Lymph % (Auto) 3.4 % 03/07/25 02:04 [place] % (Auto) 6.7 % 03/07/25 02:04 Eos % (Auto) 0.0 % 03/07/25 02:04 Baso % (Auto) 0.2 % 03/07/25 02:04 Neut # (Auto) 13.60 K/uL (1.40-6.50) H 03/07/25 02:04 Lymph # (Auto) 0.52 K/uL (1.20-3.40) L 03/07/25 02:04 [place] # (Auto) 1.02 K/uL (0.11-0.59) H 03/07/25 02:04 Eos # (Auto) 0.00 K/uL (0.00-0.50) 03/07/25 02:04 Baso # (Auto) 0.03 K/uL (0.00-0.20) 03/07/25 02:04 Immature Gran # (Auto) 0.07 K/uL (0.01-0.20) 03/07/25 02:04 PT 11.0 Seconds (9.0-12.0) 03/06/25 15:04 INR 1.0 (0.9-1.1) 03/06/25 15:04 APTT 26 Seconds (21-31) 03/06/25 15:04 PTT Ratio 1.0 03/06/25 15:04 VBG pH 7.36 (7.36-7.41) 03/08/25 05:21 VBG pCO2 48 mmHg (38-50) 03/08/25 05:21 VBG pO2 31 mmHg 03/08/25 05:21 VBG HCO3 27 mmol/L 03/08/25 05:21 VBG O2 Saturation < 60.0 % 03/08/25 05:21 VBG Base Excess 1.0 mEq/L 03/08/25 05:21 Sodium 139 mmol/L (136-145) 03/11/25 05:34 Potassium 3.6 mmol/L (3.5-5.1) 03/11/25 05:34 Chloride 105 mmol/L (98-107) 03/11/25 05:34 Carbon Dioxide 26 mmol/L (21-32) 03/11/25 05:34 Anion Gap 8 (3-11) 03/11/25 05:34 BUN 13 mg/dl (6-23) 03/11/25 05:34 Creatinine 0.84 mg/dl (0.6-1.2) 03/11/25 05:34 Est Cr Clr Drug Dosing 73.0 ml/min 03/11/25 05:34 eGFR 74.71 03/11/25 05:34 BUN/Creatinine Ratio 15.5 (10-20) 03/11/25 05:34 Glucose 124 mg/dl (70-99(Fasting)) H 03/11/25 05:34 POC Glucose 137 mg/dl (70-99) H 03/11/25 08:02 Lactate 2.4 mmol/L (0.4-2.0) H* 03/08/25 05:21 Calcium 8.7 mg/dl (8.6-10.3) 03/11/25 05:34 Phosphorus 2.4 mg/dl (2.5-4.9) L 03/11/25 05:34 Magnesium 1.6 mg/dl (1.7-2.4) L 03/11/25 05:34 Total Bilirubin 0.6 mg/dl (0.2-1.0) 03/06/25 15:04 Direct Bilirubin 0.2 mg/dl (0-0.2) 03/06/25 15:04 AST 29 U/L (13-39) 03/06/25 15:04 ALT 14 U/L (7-52) 03/06/25 15:04 Alkaline Phosphatase 62 U/L (34-104) 03/06/25 15:04 Ammonia 26.0 umol/L (18-72) 03/08/25 05:21 Total Creatine Kinase 139 U/L (26-192) 03/07/25 20:51 Troponin I High Sens 8.7 pg/ml (0-14) 03/06/25 15:04 Total Protein 6.5 gm/dl (6.0-8.3) 03/06/25 15:04 Albumin 3.8 gm/dl (3.4-5.0) 03/06/25 15:04 Procalcitonin 0.08 ng/ml (0-0.5) 03/06/25 15:04 TSH 0.855 uIu/ml (0.300-4.500) 03/08/25 05:21 Urine Color [place] 03/07/25 Unknown Urine Appearance Cloudy (Clear) A 03/07/25 Unknown Urine pH 5.0 (4.5-7.5) 03/07/25 Unknown Ur Specific [place] 1.020 (1.000-1.030) 03/07/25 Unknown Urine Protein 1+ (Negative) H 03/07/25 Unknown Urine Glucose (UA) Negative (Negative) 03/07/25 Unknown Urine Ketones Trace (Negative) H 03/07/25 Unknown Urine Blood Negative (Negative) 03/07/25 Unknown Urine Nitrite Positive (Negative) A 03/07/25 Unknown Urine Bilirubin 2+ (Negative) H 03/07/25 Unknown Urine Urobilinogen Negative (Negative) 03/07/25 Unknown Ur Leukocyte Esterase 1+ (Negative) H 03/07/25 Unknown Urine WBC (Auto) 0-5 /hpf (0-5) 03/07/25 Unknown Urine RBC (Auto) 0-2 /hpf (0-2) 03/07/25 Unknown U Hyaline Cast (Auto) 3-5 /lpf (0-2) H 03/07/25 Unknown U Epithel Cells (Auto) 0-2 /hpf (0-2) 03/07/25 Unknown Urine Bacteria (Auto) None Seen (None Seen) 03/07/25 Unknown Urine Comment 03/07/25 Unknown Stl C. cayetanensis PCR Not Detected (NotDetected) 03/06/25 15:07 Stool Rotavirus A PCR Not Detected (NotDetected) 03/06/25 15:07 Stl Adenov F 40/41 PCR Not Detected (NotDetected) 03/06/25 15:07 Stool Astrovirus (PCR) Not Detected (NotDetected) 03/06/25 15:07 Stool Campylobacter PCR Not Detected (NotDetected) 03/06/25 15:07 Stl C. diff Tox B Gene Negative Cdiff Gene (Neg) 03/06/25 15:07 Stl C. diff [id number] NEGATIVE 03/06/25 15:07 Stool Cryptosporidium PCR Not Detected (NotDetected) 03/06/25 15:07 Stl E.coli Shiga Tox PCR Not Detected (NotDetected) 03/06/25 15:07 Stl Enterotoxigenic E PCR Not Detected (NotDetected) 03/06/25 15:07 Stool EPEC (PCR) Not Detected (NotDetected) 03/06/25 15:07 Stool EAEC (PCR) DETECTED (NotDetected) A* 03/06/25 15:07 Stl E. histolytica PCR Not Detected (NotDetected) 03/06/25 15:07 Stool Giardia Lamblia PCR Not Detected (NotDetected) 03/06/25 15:07 Stool Salmonella PCR Not Detected (NotDetected) 03/06/25 15:07 Stool Sapovirus (PCR) Not Detected (NotDetected) 03/06/25 15:07 Stl P. shigelloides PCR Not Detected (NotDetected) 03/06/25 15:07 Stl Shigella/EIEC PCR Not Detected (NotDetected) 03/06/25 15:07 St Y.enterocolitica PCR Not Detected (NotDetected) 03/06/25 15:07 Stool Vibrio (PCR) Not Detected (NotDetected) 03/06/25 15:07 Stl Vibrio cholerae PCR Not Detected (NotDetected) 03/06/25 15:07 Stl Norovirus GI/GII PCR Not Detected (NotDetected) 03/06/25 15:07 SARS-CoV-2 (PCR) NEGATIVE (Negative) 03/06/25 15:07 Influenza Type A (PCR) Negative (Neg) 03/06/25 15:07 Influenza Type B (PCR) Negative (Neg) 03/06/25 15:07 RSV (RT-PCR) Negative (Neg) 03/06/25 15:07 Impressions Abdomen/Pelvis CT 03/06/25 21:20 CR Exam(s): CT ABDOMEN + PELVIS Without Contrast EXAM: CT Abdomen and Pelvis Without Intravenous Contrast CLINICAL HISTORY: Reason for exam: L abd pain. TECHNIQUE: Axial computed tomography images of the abdomen and pelvis without intravenous contrast. CTDI is 28.14 mGy and DLP is 1316.89 mGy-cm. Automated exposure control was utilized for the study. A dose lowering technique was utilized adhering to the principles of ALARA. COMPARISON: No relevant prior studies available. FINDINGS: Lung bases: Bibasilar atelectasis/scarring. ABDOMEN: Liver: Unremarkable. Gallbladder and bile ducts: Distended gallbladder. No calcified stones. No ductal dilation. Pancreas: Atrophic pancreas. No ductal dilation. Spleen: Unremarkable. No splenomegaly. Adrenals: Bilateral low-density adrenal nodules consistent with adenomas. Kidneys and ureters: Nonobstructing left renal calculi. Largest in the lower pole measures 11 mm. 2.4 cm left renal mildly dense lesion, not adequately characterized. No hydronephrosis or obstructing calculus. Stomach and bowel: Mild wall thickening of the mid transverse colon to the distal descending colon with mild surrounding fat stranding. Colonic diverticulosis. Stomach is moderately distended with fluid and heterogeneous contents. No bowel obstruction. PELVIS: Appendix: Normal appendix. Bladder: Unremarkable. No stones. Reproductive: Unremarkable as visualized. ABDOMEN and PELVIS: Intraperitoneal space: Unremarkable. No free air. No significant fluid collection. Bones/joints: Degenerative changes of the spine. No acute fracture. No dislocation. Soft tissues: Lobular fat containing ventral hernia. Vasculature: Unremarkable. No abdominal aortic aneurysm. Lymph nodes: Unremarkable. No enlarged lymph nodes. IMPRESSION: 1. Mild wall thickening of the mid transverse colon to the distal descending colon with mild surrounding fat stranding. Favor ischemic/inflammatory/infectious colitis over diverticulitis. No pneumatosis, portal venous gas or free air. No abscess. 2. Colonic diverticulosis. 3. Distended gallbladder. 4. Nonobstructing left renal calculi. Largest in the lower pole measures 11 mm. 5. 2.4 cm left renal mildly dense lesion, not adequately characterized. Correlate with priors if available or consider nonemergent MRI. 6. Bilateral low-density adrenal nodules consistent with adenomas. Communications: Verify Receipt Electronically signed by: Greg Castaneda M.D. 03/07/25 02:[address] 03/07/25 13:16 CT SCAN OF THE BRAIN WITHOUT IV CONTRAST CLINICAL HISTORY: Change in mental status. COMPARISON STUDY: No priors. TECHNIQUE: Unenhanced axial CT scan of the brain is performed from the vertex to the skull base. Images are reviewed in the axial, sagittal, coronal planes. A dose lowering technique was utilized adhering to the principles of ALARA. The patient was scanned twice due to motion artifact. CT DOSE: 2199.31 mGy.cm FINDINGS: Brain parenchyma: There is age-related involutional change noting mild subcortical and periventricular microangiopathic disease. There is no hemorrhage, mass effect, or evidence of acute territorial ischemia by CT criteria. [place]-white matter differentiation is preserved. No extra-axial fluid collection is seen. Ventricles, sulci, cisterns: Prominent secondary to involutional change. Intracranial vasculature: There is atherosclerotic calcification of the cavernous carotid arteries. Calvarium: Unremarkable. Sinuses and mastoids: The paranasal sinuses are clear. The mastoid air cells are well pneumatized. Orbits: The bony orbits are grossly intact. There is a right ocular lens implant. IMPRESSION: There is no hemorrhage, mass effect, or evidence of acute territorial ischemia by CT criteria noting a motion degraded examination. ACT 112: Negative or not required by law. Electronically signed by: Olman Magaña M.D. 03/07/2025 2:16 PM Chest X-Ray 03/08/25 03:39 EXAM: XR chest 1V portable CLINICAL HISTORY: SOB. TECHNIQUE: An X-ray image of the chest is obtained in AP projection. COMPARISON: Comparison is made with the prior examination dated 03/06/2025. FINDINGS: Pulmonary Parenchyma: Lungs are clear bilaterally. No evidence of consolidation, collapse, or focal opacities. No pulmonary nodules are identified. There are prominent pulmonary interstitial markings. No evidence of pleural effusion or pleural thickening. Heart and Mediastinum: Heart size and shape are normal. There are prominent bilateral hilar shadows likely due to vascular enlargement. No mediastinal widening or masses. No hilar or mediastinal lymphadenopathy. Bony Thorax: Bony thorax appears intact without fractures or deformities. Left shoulder implant is noted. Soft Tissues: Soft tissues overlying the chest wall are unremarkable. IMPRESSION: 1. Findings suggestive of mild vascular congestion. 2. No apparent interval changes. Electronically signed by Jose Antonio Guerra 03-08-2025 05:06 AM Hip/Pelvis X-Ray 03/08/25 13:14 XR hip RUTH 2v w pelvis HISTORY: 70 years-old Female Hip Pain, recent Fall acute bilateral hip pain status post fall COMPARISON: CT abdomen and pelvis 03/06/2025 TECHNIQUE: AP view of the pelvis with 2 views of the hips bilaterally FINDINGS: Mild osteoarthritis of the hips. Demineralized appearance of the bones. Lumbar levoscoliosis with moderate to severe degenerative changes. No acute fracture or dislocation identified. IMPRESSION: No acute fracture or dislocation. ACT 112: Negative or not required by law. The above report was generated using voice recognition software. It may contain grammatical, syntax or spelling errors. Electronically signed by: En Joya M.D. 03/08/2025 3:08 PM Medications Administered Home Medications Medication Instructions Recorded Confirmed Last Taken amiodarone 200 mg tablet See Rx Instructions .Route 03/11/25 Unknown .COMPLEX #60 tabs apixaban 5 mg tablet (Eliquis) 5 mg PO BID #60 tabs 03/11/25 Unknown atorvastatin 40 mg tablet 40 mg PO HS #30 tabs 03/11/25 Unknown gabapentin 300 mg capsule 300 mg PO TID #90 caps 03/11/25 Unknown glucosamine sulfate 750 mg tablet 750 mg PO DAILY #30 tabs 03/11/25 Unknown lisinopril 20 mg tablet 20 mg PO QAM #30 tabs 03/11/25 Unknown metoprolol tartrate 50 mg tablet 75 mg (1.5 x 50 mg) PO BID #90 tabs 03/11/25 Unknown mirabegron 25 mg tablet,extended 25 mg PO QAM #30 tabs 03/11/25 Unknown release 24 hr (Myrbetriq) sertraline 100 mg tablet 200 mg (2 x 100 mg) PO QAM #30 tabs 03/11/25 Unknown trazodone 50 mg tablet 25 mg (1/2 x 50 mg) PO HS #30 tabs 03/11/25 Unknown PG Care Time/CCT Total # of Minutes Spent Total Time Spent with Patient: Total time spent is greater than 50% in coordination of care (as documented) at patient's floor/unit and/or counseling patient: Coding Level of Care Code 16777 SUB INP/OBS CARE 3/50MIN Diagnoses Ischemic colitis K55.9 Sepsis A41.9 PAF (paroxysmal atrial fibrillation) I48.0 Wide-complex tachycardia R00.0 Ventricular tachycardia I47.20 Sleep apnea G47.30
[2025-03-12] MEDS ORDERED: METOPROLOL TARTRATE 25 MG TAB PO SCH (09:00)
== END 2025-03-11 13:51 | disposition home or self-care (01) | DRG 871 ==
LOC: ED 14:42 → SUATTDRO 17:16 → 4W 17:16